=== PATIENT | male | born 1935 | race Caucasian/White ===

== ENCOUNTER 2016-11-16 15:44 | Inpatient (IN) | payer MEDICARE, BC ==
[~2016-11-16] VITALS: Ht 180.3 cm; Wt 97.4 kg
[2016-11-16 15:49] VITALS: BP 102/71; PULSE 82; RESP 16; TEMP 98.7
[2016-11-16] MEDS ORDERED: ATEN25TA PO (16:02)
[2016-11-16] MEDS ORDERED: ATOR40TA16 PO (16:02)
[2016-11-16] MEDS ORDERED: TAMS0.4C4 PO (16:02)
[2016-11-16] MEDS ORDERED: AMLO5TAB2 PO (16:02)
[2016-11-16] MEDS ORDERED: LISI10TA3 PO (16:02)
[2016-11-16] MEDS ORDERED: ASPI1TAB69 PO (16:03)
[2016-11-16] MEDS ORDERED: SODIUM CHLOR 0.9% 1000 ML INJ 1,000 ML IV SCH (16:12)
[2016-11-16] MEDS: SODIUM CHLORIDE 0.9% FLUSH 5 ML FLUSH IVF PRN ×2 (16:29→20:18)
[2016-11-16 16:31] VITALS: O2SAT 97
[2016-11-16 16:46] LABS: CHLORIDE 99 MEQ/L (98-107); POTASSIUM 4.4 MEQ/L (3.5-5.1); SODIUM (NA) 136 MEQ/L (136-145)
[2016-11-16 16:50] LABS: APTT (PATIENT) 27.1 SEC (24.3-30.1); INTERNATIONAL NORMALIZED RATIO 1.1 RATIO; PROTHROMBIN TIME - PATIENT 11.8 SEC (9.8-11.6)
[2016-11-16 16:51] LABS: ANION GAP 11 MEQ/L (5-15); BICARBONATE 26.1 MEQ/L (21.0-32.0); BLOOD UREA NITROGEN 27 MG/DL (7-18)
[2016-11-16 16:52] LABS: GLOMERULAR FILTRATION RATE 49 ML/MIN (>89)
[2016-11-16 16:54] LABS: ALT (GPT) 245 U/L (12-78); AST (GOT) 216 U/L (15-37)
--- NOTE | 2016-11-16 16:54 | PD ---
HPI Chief Complaint: GI Complaint Time Seen by Provider: 16:05 Travel History International Travel<30 days: Yes Contact w/Intl Traveler<30days: Yes Name of Country Traveled to: [facility] Traveled to known affect area: No History of Present Illness HPI This is an 81-year-old male who presents the emergency department with a 2 day history of dark tarry stools. Patient is also developed some generalized fatigue and weakness. Denies any abdominal pain. States he's had some mild weight loss over the past 23 days with his dark stooling but denies any chronic weight loss. Never had these symptoms before. No prior colonoscopy history no fevers no nausea no vomiting. Patient states every bowel movement now is dark stool. PFSH Past Medical History High Cholesterol: Yes Diminished Hearing: No Genitourinary: Yes (PROSTATE) Hypertension: Yes Influenza Vaccination: Yes ?: Not Past Surgical History Coronary Artery Bypass Graft: Yes Social History Alcohol Use: Yes Tobacco Use: No Allergies-Medications (Allergen,Severity, Reaction): Coded Allergies: No Known Allergies (Verified , 11/16/16) Reported Meds & Prescriptions Reported Meds & Active Scripts Active Reported Aspirin 81 Mg Tabdr 81 Mg PO HS Atorvastatin (Atorvastatin Calcium) 40 Mg Tab 40 Mg PO HS Lisinopril 10 Mg Tab 10 Mg PO HS Amlodipine (Amlodipine Besylate) 5 Mg Tab 5 Mg PO HS Atenolol 25 Mg Tab 25 Mg PO HS Tamsulosin (Tamsulosin HCl) 0.4 Mg Cap 0.4 Mg PO HS Review of Systems Except as stated in HPI: all other systems reviewed are Neg Physical Exam Narrative GENERAL: Well-developed well-nourished no apparent distress SKIN: Warm and dry. HEAD: Atraumatic. Normocephalic. EYES: Pupils equal and round. No scleral icterus. No injection or drainage. ENT: No nasal bleeding or discharge. Mucous membranes pink and moist. NECK: Trachea midline. No JVD. CARDIOVASCULAR: Regular rate and rhythm. No murmur appreciated. RESPIRATORY: No accessory muscle use. Clear to auscultation. Breath sounds equal bilaterally. GASTROINTESTINAL: Abdomen soft, non-tender, nondistended. Hepatic and splenic margins not palpable. Valencia sign negative. RECTAL EXAM: Patient has gross dark melanotic stools which are Hemoccult positive. No stool impaction, no mass, no hemorrhoids. MUSCULOSKELETAL: No obvious deformities. No clubbing. No cyanosis. No edema. NEUROLOGICAL: Awake and alert. No obvious cranial nerve deficits. Motor grossly within normal limits. Normal speech. PSYCHIATRIC: Appropriate mood and affect; insight and judgment normal. Data Data Last Documented VS Vital Signs Date Time Temp Pulse Resp B/P Pulse Ox O2 Delivery O2 Flow Rate FiO2 11/16/16 19:46 67 16 114/56 95 Room Air 11/16/16 15:49 98.7 Orders Complete Blood Count With Diff (11/16/16 16:12) Comprehensive Metabolic Panel (11/16/16 16:12) Lipase (11/16/16 16:12) Prothrombin Time / Inr (Pt) (11/16/16 16:12) Act Partial Throm Time (Ptt) (11/16/16 16:12) Urinalysis - C+S If Indicated (11/16/16 16:12) Ct Abd/Pel W Iv Contrast(Rout) (11/16/16 16:12) Iv Access Insert/Monitor (11/16/16 16:12) Ecg Monitoring (11/16/16 16:12) Oximetry (11/16/16 16:12) Sodium Chlor 0.9% 1000 Ml Inj (Ns 1000 M (11/16/16 16:12) Sodium Chloride 0.9% Flush (Ns Flush) (11/16/16 16:15) Type And Screen (11/16/16 16:12) Iohexol 350 Inj (Omnipaque 350 Inj) (11/16/16 18:20) Blood Culture (11/16/16 18:25) Vancomycin Inj (Vancomycin Inj) (11/16/16 21:00) Ampicillin-Sulbactam Inj (Unasyn Inj) (11/16/16 20:00) Consult General Surgery (11/16/16 ) Consult Gastroenterology (11/16/16 ) Biliary Drainage W Stent Plcmt (11/16/16 ) Admit Order (Ed Use Only) (11/16/16 ) Pantoprazole Inj (Protonix Inj) (11/16/16 20:15) Labs Laboratory Tests Test 11/16/16 11/16/16 16:27 18:45 White Blood Count 14.3 TH/MM3 Red Blood Count 3.71 MIL/MM3 Hemoglobin 11.4 GM/DL Hematocrit 33.2 % Mean Corpuscular Volume 89.4 FL Mean Corpuscular Hemoglobin 30.6 PG Mean Corpuscular Hemoglobin 34.3 % Concent Red Cell Distribution Width 12.5 % Platelet Count 336 TH/MM3 Mean Platelet Volume 7.8 FL Neutrophils (%) (Auto) 84.8 % Lymphocytes (%) (Auto) 4.6 % Monocytes (%) (Auto) 9.7 % Eosinophils (%) (Auto) 0.1 % Basophils (%) (Auto) 0.8 % Neutrophils # (Auto) 12.1 TH/MM3 Lymphocytes # (Auto) 0.7 TH/MM3 Monocytes # (Auto) 1.4 TH/MM3 Eosinophils # (Auto) 0.0 TH/MM3 Basophils # (Auto) 0.1 TH/MM3 CBC Comment DIFF FINAL Differential Comment Prothrombin Time 11.8 SEC Prothromb Time International 1.1 RATIO Ratio Activated Partial 27.1 SEC Thromboplast Time Sodium Level 136 MEQ/L Potassium Level 4.4 MEQ/L Chloride Level 99 MEQ/L Carbon Dioxide Level 26.1 MEQ/L Anion Gap 11 MEQ/L Blood Urea Nitrogen 27 MG/DL Creatinine 1.40 MG/DL Estimat Glomerular Filtration 49 ML/MIN Rate Random Glucose 132 MG/DL Calcium Level 8.7 MG/DL Total Bilirubin 0.8 MG/DL Aspartate Amino Transf 216 U/L (AST/SGOT) Alanine Aminotransferase 245 U/L (ALT/SGPT) Alkaline Phosphatase 112 U/L Total Protein 7.6 GM/DL Albumin 2.6 GM/DL Lipase 236 U/L Blood Type AB POSITIVE Antibody Screen NEGATIVE Blood Bank Comment Urine Color YELLOW Urine Turbidity CLEAR Urine pH 5.5 Urine Specific [place] 1.035 Urine Protein TRACE mg/dL Urine Glucose (UA) NEG mg/dL Urine Ketones NEG mg/dL Urine Occult Blood NEG Urine Nitrite NEG Urine Bilirubin NEG Urine Leukocyte Esterase NEG Urine RBC 0-3 /hpf Urine WBC 0-2 /hpf Urine Squamous Epithelial 0-5 /hpf Cells Microscopic Urinalysis Comment CULT NOT INDICATED MDM Medical Decision Making Medical Screen Exam Complete: Yes Emergency Medical Condition: Yes Differential Diagnosis GI bleed, ulcer, esophageal varices less likely, tumor, cholecystitis, electrolyte abnormality, anemia, coagulopathy. Narrative Course Patient was roomed in the emergency department, 81-year-old male who appears younger than stated age nontoxic appearance and not in any pain. Abdomen exam is benign. Does have gross melena on rectal exam. CAT scan was ordered as part of a complete workup for 81-year-old with GI bleeding and shows Last 24 hours Impressions Abdomen/Pelvis CT 11/16/16 1612 Signed Impressions: Service Date/Time: Wednesday, November 16, 2016 17:49 - CONCLUSION: Acute emphysematous cholecystitis. Several small abscesses in the adjacent liver. Garfield Suh MD Patient was started on vancomycin and Unasyn, lactic acid was ordered. White blood cell count minimally elevated to 14. Patient was discussed with Dr. Fabio Pepper second baker for general surgery who states that patient is not a good surgical candidate at this time given his GI bleeding and I tend to agree. After conversation with Dr. Pepper recommendation was given for an IR consult for consideration of drainage of his gallbladder. This consult is been placed for the morning. I do not think there is an emergent reason to drain his gallbladder at this time. Patient was also discussed with Dr. Mcdermott who agrees the patient should be transferred to the [facility] hospital for both surgical consultation and consultation with him. Patient was given Protonix IV. His vital signs remained stable in the emergency department. Patient has type and screen was also sent. Patient labs reviewed and shows a white blood cell count of 14.3 with a left shift, this is his only surgical criteria and therefore not septic. Hemoglobin 11.4 hematocrit 33.2. Coags within normal limits. Chemistry shows a creatinine 1.4 with a BUNs of 27, AST and LT are 216 at 245 respectively. Bilirubin and alkaline phosphatase within normal limits. Discuss results with the patient and his and they're agreeable to transfer. Discussed with Dr. Clancy who will admit. Patient is stable for transportation to the [facility] hospital. Critical Care Narrative Aggregate critical care time was 35 minutes. Time to perform other separately billable procedures was not included in the critical care time. My time did not include minutes spent treating any other patients simultaneously or on activities that did not directly contribute to the patient's treatment. The services I provided to this patient were to treat and/or prevent clinically significant deterioration that could result in: , permanent or temporary disability, organ failure. I provided critical care services requiring my management, as noted below: Chart data review, documentation time, medication orders and management, vital sign assessments/reviewing monitor data, ordering and reviewing lab tests, ordering and interpreting/reviewing x-rays and diagnostic studies, care of the patient and discussion of the patient with the admitting physicians. Diagnosis Primary Impression: GI bleeding Qualified Code: K92.2 - Gastrointestinal hemorrhage, unspecified gastrointestinal hemorrhage type Additional Impressions: Acute emphysematous cholecystitis Anemia Admitting Information Admitting Physician Requests: Admit Condition: Stable Torres Nieves MD Nov 16, 2016 16:54 Torres Nieves MD Nov 16, 2016 16:54
[2016-11-16 16:56] LABS: TOTAL BILIRUBIN ADULT 0.8 MG/DL (0.2-1.0)
[2016-11-16 16:57] LABS: ALKALINE PHOSPHATASE 112 U/L (45-117)
[2016-11-16 16:58] LABS: AUTOMATED NEUTROPHIL # 12.1 TH/MM3 (1.8-7.7); BASOPHIL # 0.1 TH/MM3 (0-0.2); BASOPHIL % 0.8 % (0.0-2.0); EOSINOPHIL % 0.1 % (0.0-4.0); HEMATOCRIT 33.2 % (39.0-51.0); LYMPH % 4.6 % (9.0-44.0); LYMPHOCYTE # 0.7 TH/MM3 (1.0-4.8); MEAN CELL VOLUME 89.4 FL (80.0-100.0); MEAN CORPUSCULAR HEMOGLOBIN 30.6 PG (27.0-34.0); MEAN CORPUSCULAR HGB CONC 34.3 % (32.0-36.0); MONO % 9.7 % (0.0-8.0); NEUT % 84.8 % (16.0-70.0); PLATELET COUNT 336 TH/MM3 (150-450); RED BLOOD COUNT 3.71 MIL/MM3 (4.50-5.90); RED CELL DISTRIBUTION WIDTH 12.5 % (11.6-17.2); WHITE BLOOD COUNT 14.3 TH/MM3 (4.0-11.0)
[2016-11-16 16:59] LABS: HEMO FLAGS DIFF FINAL
--- NOTE | 2016-11-16 18:19 | RADHPO ---
EXAM DATE/TIME: 11/16/2016 17:49 [facility] COMPARISON: No previous studies available for comparison. INDICATIONS : Black stoo. Lower abdominal pressure. Diarrhea. Nausea. IV CONTRAST: 75 cc Omnipaque 350 (iohexol) IV ORAL CONTRAST: No oral contrast ingested. RADIATION DOSE: 18.25 CTDIvol (mGy) MEDICAL HISTORY : Hypertension. SURGICAL HISTORY : CABG ENCOUNTER: Initial ACUITY: 4 - 6 days PAIN SCALE: 1/10 LOCATION: Bilateral lower quadrant TECHNIQUE: Volumetric scanning of the abdomen and pelvis was performed. Using automated exposure control and ad justment of the mA and/or kV according to patient size, radiation dose was kept as low as reasonably achievable to obtain optimal diagnostic quality images. FINDINGS: Distended gallbladder with irregular wall thickening, mucosal enhancement, septations and gas within the lumen noted. There are small pockets of fluid and gas in the liver along the superior margin of t he gallbladder fossa that measure up to 18 mm in size, series 2 image 17 and series 601 image 44. The rest of the liver is normal. No ductal dilatation. No perceptible stones. Spleen, pancreas, adrenal glands and kidneys are normal. No obstruction or acute inflammatory ch anges are seen of the gastrointestinal tract. There is tortuosity and atherosclerosis of the abdomina l aorta. No aneurysm. CONCLUSION: Acute emphysematous cholecystitis. Several small abscesses in the adjacent liver. Garfield Suh MD on November 16, 2016 at 18:13 Board Certified Radiologist. This report was verified electronically.
[2016-11-16] MEDS ORDERED: IOHEXOL 350 MG/ML 10 ML VIAL (for RAD DIAG) IV ONE (18:20)
[2016-11-16 19:16] LABS: BLOOD, URINE NEG (NEG); GLUCOSE,URINE NEG (NEG); KETONE, URINE NEG (NEG); NITRITE,URINE NEG (NEG); PH, URINE 5.5 (5.0-8.5)
[2016-11-16 19:18] LABS: URINE COLOR YELLOW (YELLW/STRAW)
[2016-11-16 19:22] LABS: COMMENT (UR) CULT NOT INDICATED; CULTURE IF INDICATED CULT NOT INDICATED; RBC, URINE 0-3 /hpf (0-3); SQUAMOUS EPITHELIAL CELL URINE 0-5 /hpf (0-5); WBC, URINE 0-2 /hpf (0-5)
[2016-11-16 19:46] VITALS: BP 114/56; PULSE 67; RESP 16; O2SAT 95
[2016-11-16] MEDS ORDERED: AMPICILLIN-SULBACTAM INJ 3 GM in SODIUM CHLORIDE 0.9% INJ 100 ML IV ONE (20:00)
[2016-11-16] MEDS ORDERED: SODIUM CHLORIDE 0.9% FLUSH 5 ML FLUSH FLUSH PRN (20:15)
[2016-11-16] MEDS ORDERED: Vancomycin Consult Pharmacy 1 EA OTHER SCH (20:15)
[2016-11-16] MEDS ORDERED: PANTOPRAZOLE SODIUM 40 MG VIAL IV PUSH ONE (20:15)
[2016-11-16] MEDS ORDERED: NALOXONE HCL 0.4 MG/ML AMP IV PRN (20:15)
[2016-11-16] MEDS ORDERED: ONDANSETRON HCL 4 MG/2 ML VIAL IVP PRN (20:15)
[2016-11-16] MEDS ORDERED: VANCOMYCIN INJ 1,000 MG in SODIUM CHLOR 0.9% 250 ML INJ 250 ML IV ONE (21:00)
[2016-11-16] MEDS ORDERED: PANTOPRAZOLE INJ 80 MG in SODIUM CHLORIDE 0.9% INJ 35 ML IV ONE (21:15)
[2016-11-16 22:00] VITALS: BP 115/57; PULSE 67; PULSE 69; RESP 16; TEMP 99.3; O2SAT 97
[2016-11-16] MEDS: PANTOPRAZOLE INJ 80 MG in SODIUM CHLORIDE 0.9% INJ 100 ML IV SCH (22:43)
[2016-11-16] MEDS: SODIUM CHLORIDE 0.9% FLUSH 5 ML FLUSH FLUSH SCH (22:44)
--- NOTE | 2016-11-16 23:21 | HHI.HP ---
HPI Service [facility] Primary Care Physician No Primary Care Physician Admission Diagnosis GI bleed, Acute Emphysematous Cholecystitis. Diagnoses: (1) GI bleeding (2) Anemia (3) Acute emphysematous cholecystitis Chief Complaint: poor appetite and dark, tarry stools Travel History International Travel<30 Days: Yes Contact w/Intl Traveler <30 Da: Yes Name of Country Traveled to: [facility] Traveled to Known Affected Are: No History of Present Illness Mr. Rico is an 81-year-old male with past medical history of coronary artery disease status post CABG, hyperlipidemia, hypertension, and prostate hypertrophy who presented to the [facility] emergency room on 11/16/2016 complaining of dark, tarry stool. Abdomen/pelvis CT with acute emphysematous cholecystitis and several small abscesses in the adjacent liver. He was transferred to the [facility] for intervention at the request of the consulting surgeon, Dr. Friedman. The patient is seen in his hospital room with his at his bedside. The patient states that he has been having a very poor appetite with associated weight loss. He has been having dark stools over the past few weeks but over the past couple of days every stool is now black and tarry. He reports having one bowel movement daily. He complains of associated abdominal bloating ( though examination of abdomen is normal). He denies associated burning or pain with urination or hematuria. His reports a possible tactile fever over the past couple of days. Denies chest pain, shortness of breath, dizziness, or syncope. Denies abdominal pain. Denies diabetes mellitus, respiratory problems, liver or kidney dysfunction, thyroid problems, seizures, cancer, or problems with blood clots such as DVT, PE , or CVA. . Review of Systems Except as stated in HPI: all other systems reviewed are Neg Past Family Social History Past Medical History Coronary artery disease status post CABG Hyperlipidemia Hypertension Prostate hypertrophy Past Surgical History CABG x4 in 1995 in [place], [place] Benign cyst removed from left breast Reported Medications Reported Meds & Active Scripts Active Reported Aspirin 81 Mg Tabdr 81 Mg PO HS Atorvastatin (Atorvastatin Calcium) 40 Mg Tab 40 Mg PO HS Lisinopril 10 Mg Tab 10 Mg PO HS Amlodipine (Amlodipine Besylate) 5 Mg Tab 5 Mg PO HS Atenolol 25 Mg Tab 25 Mg PO HS Tamsulosin (Tamsulosin HCl) 0.4 Mg Cap 0.4 Mg PO HS . Allergies: Coded Allergies: No Known Allergies (Verified , 11/16/16) Active Ordered Medications Current Medications Sodium Chloride (NS 1000 ml Inj) 1,000 ml @ 1,000 mls/hr Q1H IV Last administered on 11/16/16 16:29; Start 11/16/16 at 16:12; Stop 11/16/16 at 17:11 ; Status DC IV Flush (NS Flush) 2 ml UNSCH PRN IVF FLUSH AFTER USING IV ACCESS Last administered on 11/16/16 20:18; Start 11/16/16 at 16:15 Iohexol 75 ml 75 ml STK-MED ONCE IV Last administered on 11/16/16 18:20; Start 11/16/16 at 18:20; Stop 11/16/16 at 18:21; Status DC Vancomycin HCl 1000 mg/Sodium Chloride 250 ml @ 250 mls/hr ONCE ONCE IV Last administered on 11/16/16 20:20; Start 11/16/16 at 21:00; Stop 11/16/16 at 21:59 ; Status DC Ampicillin Sodium/ Sulbactam Sodium/ Sodium Chloride (Unasyn Inj/NS Inj) 100 ml @ 200 mls/hr ONCE ONCE IV Last administered on 11/16/16 19:43; Start at 20:00; Stop 11/16/16 at 20:29; Status DC Pantoprazole Sodium (Protonix Inj) 40 mg ONCE ONCE IV PUSH Last administered on 11/16/16 20:18; Start 11/16/16 at 20:15; Stop 11/16/16 at 20:16; Status DC IV Flush (NS Flush) 2 ml UNSCH PRN FLUSH FLUSH AFTER USING IV ACCESS; Start at 20:15 IV Flush (NS Flush) 2 ml BID FLUSH Last administered on 11/16/16 22:44; Start 11/16/16 at 21:00 Ondansetron HCl (Zofran Inj) 4 mg Q6H PRN IVP NAUSEA OR VOMITING; Start at 20:15 Naloxone HCl 0.4 mg 0.4 mg UNSCH PRN IV SEE LABEL COMMENTS; Start 11/16/16 at 20:15 Pharmacy Profile Note 0 ml @ 0 mls/hr UNSCH OTHER ; Start 11/16/16 at 20:15 Piperacillin Sod/ Tazobactam Sod 100 ml @ 200 mls/hr Q6H IV ; Start 11/17/16 at 00:00 Pantoprazole Sodium 80 mg/ Sodium Chloride 35 ml @ 420 mls/hr ONCE ONCE IV ; Start 11/16/16 at 21:15; Stop 11/16/16 at 21:19; Status Cancel Pantoprazole Sodium 80 mg/ Sodium Chloride 100 ml @ 10 mls/hr Q10H IV Last administered on 11/16/16t 22:43; Start 11/16/16 at 21:15 Vancomycin HCl/ Sodium Chloride (Vancomycin Inj/ NS 500 ml Inj) 517 ml @ 250 mls/hr DAILY@11 IV ; Start 11/17/16 at 11:00 Miscellaneous Information SPECIFIC LAB TO BE DRAWN:VANCO TROUGH DATE TO... ONCE ONCE XX ; Start 11/20/16 at 10:45; Stop 11/20/16 at 10:46 . Family History Mother age 94; dementia, heart disease Father age 82; cause unknown Brother with heart failure; age 86 . Social History Tobacco: Denies, quit smoking in 1980 that had a 22 year 1 pack per day history prior to that Alcohol: Drinks 1-2 glasses of wine daily Patient was born in [place] . Physical Exam Vital Signs Vital Signs Date Time Temp Pulse Resp B/P Pulse Ox O2 Delivery O2 Flow Rate FiO2 11/16/16 22:00 99.3 69 16 115/57 97 11/16/16 19:46 67 16 114/56 95 Room Air 11/16/16 16:31 97 Room Air 11/16/16 15:49 98.7 82 16 102/71 Physical Exam GENERAL: This is a pleasant elderly male patient, in no apparent distress. SKIN: No rashes, ecchymoses or lesions. Cool and dry. HEAD: Atraumatic. Normocephalic. EYES: No scleral icterus. No injection or drainage. ENT: Nose without bleeding, purulent drainage. NECK: Trachea midline. No JVD or lymphadenopathy. CARDIOVASCULAR: Regular rate and rhythm without murmurs, gallops, or rubs. RESPIRATORY: Clear to auscultation. Breath sounds equal bilaterally. No wheezes , rales, or rhonchi. GASTROINTESTINAL: Abdomen soft, non-tender, nondistended. No guarding. MUSCULOSKELETAL: Extremities without clubbing, cyanosis, or edema. No calf tenderness. NEUROLOGICAL: Awake and alert. Motor and sensory grossly within normal limits. Normal speech. . Laboratory Laboratory Tests Test 11/16/16 11/16/16 11/16/16 16:27 18:45 21:25 White Blood Count 14.3 Red Blood Count 3.71 Hemoglobin 11.4 Hematocrit 33.2 Mean Corpuscular Volume 89.4 Mean Corpuscular Hemoglobin 30.6 Mean Corpuscular Hemoglobin 34.3 Concent Red Cell Distribution Width 12.5 Platelet Count 336 Mean Platelet Volume 7.8 Neutrophils (%) (Auto) 84.8 Lymphocytes (%) (Auto) 4.6 Monocytes (%) (Auto) 9.7 Eosinophils (%) (Auto) 0.1 Basophils (%) (Auto) 0.8 Neutrophils # (Auto) 12.1 Lymphocytes # (Auto) 0.7 Monocytes # (Auto) 1.4 Eosinophils # (Auto) 0.0 Basophils # (Auto) 0.1 CBC Comment DIFF FINAL Differential Comment Prothrombin Time 11.8 Prothromb Time International 1.1 Ratio Activated Partial 27.1 Thromboplast Time Sodium Level 136 Potassium Level 4.4 Chloride Level 99 Carbon Dioxide Level 26.1 Anion Gap 11 Blood Urea Nitrogen 27 Creatinine 1.40 Estimat Glomerular Filtration 49 Rate Random Glucose 132 Calcium Level 8.7 Total Bilirubin 0.8 Aspartate Amino Transf 216 (AST/SGOT) Alanine Aminotransferase 245 (ALT/SGPT) Alkaline Phosphatase 112 Total Protein 7.6 Albumin 2.6 Lipase 236 Blood Type AB POSITIVE Antibody Screen NEGATIVE Blood Bank Comment Urine Color YELLOW Urine Turbidity CLEAR Urine pH 5.5 Urine Specific [place] 1.035 Urine Protein TRACE Urine Glucose (UA) NEG Urine Ketones NEG Urine Occult Blood NEG Urine Nitrite NEG Urine Bilirubin NEG Urine Leukocyte Esterase NEG Urine RBC 0-3 Urine WBC 0-2 Urine Squamous Epithelial 0-5 Cells Microscopic Urinalysis Comment CULT NOT INDICATED Lactic Acid Level 1.3 Date/Time Procedure Status Source Growth 11/16/16 19:12 Aerobic Blood Culture Received Blood Peripheral Pending 11/16/16 19:12 Anaerobic Blood Culture Received Blood Peripheral Pending Result Diagram: 11/16/16 1627 11/16/16 1627 Imaging Last Impressions Abdomen/Pelvis CT 11/16/16 1612 Signed Impressions: Service Date/Time: Wednesday, November 16, 2016 17:49 - CONCLUSION: Acute emphysematous cholecystitis. Several small abscesses in the adjacent liver. Garfield Suh MD Assessment and Plan Problem List: (1) GI bleeding ICD Code: K92.2 Status: Acute (2) Acute emphysematous cholecystitis ICD Code: K81.0 Status: Acute (3) Leukocytosis ICD Code: D72.829 Status: Acute (4) Anemia ICD Code: D64.9 Status: Acute (5) Acute renal insufficiency ICD Code: N28.9 Status: Acute Assessment and Plan Mr. Rico is an 81-year-old male with past medical history of coronary artery disease status post CABG, hyperlipidemia, hypertension, and prostate hypertrophy who presented to the [facility] emergency room on 11/16/2016 complaining of dark, tarry stool. Abdomen/pelvis CT with acute emphysematous cholecystitis and several small abscesses in the adjacent liver. He was transferred to the [facility] for intervention at the request of heel sander rubber, Dr. Friedman. GI bleeding gross melena noted during rectal examination per ER physician - Consult gastroenterology - Nothing by mouth - Protonix drip Acute emphysematous cholecystitis with transaminitis - Consult general surgery - consider consulting interventional radiology for gallbladder drainage Leukocytosis with neutrophilia and monocytosis Liver abscesses - Likely secondary to cholecystitis and liver abscesses - Zosyn 4.5 mg IV every 6 hours - Vancomycin IV with pharmacy consult to assist with therapeutic monitoring and dosing - Recheck CBC in a.m.; follow trends - Lactic acid level I.3 - Blood cultures pending; UA negative Anemia - likely related to GI blood loss - Hemoglobin 11.4 and hematocrit 33.2 with no recent labs to compare to - Recheck CBC in a.m. - Follow trends - Transfuse if indicated - Continuous cardiac telemetry Acute renal insufficiency likely secondary to dehydration - BUN elevated at 27, creatinine 1.40, and estimated GFR 49 - Recheck BMP in a.m. and follow trends in renal indices - Avoid nephrotoxins DVT prophylaxis - SCDs Written by Astrid Eddy, acting as scribe for Dr. Atkins on 11/16/16 at 23:10. .All or portions of this note were transcribed by tahir [Astrid Eddy]. I, Dr. Gigi Atkins personally performed the history, physical exam, and medical decision making; and confirmed the accuracy of the information in the transcribed note. Authenticated by Dr. Gigi Atkins on 11/16/16 at 2310 Discussed Condition With ER physician, RN, patient, and his Physician Certification 2 Midnight Certification Type: Admission for Inpatient Services Order for Inpatient Services The services are ordered in accordance with Medicare regulations or non- Medicare payer requirements, as applicable. In the case of services not specified as inpatient-only, they are appropriately provided as inpatient services in accordance with the 2-midnight benchmark. Estimated LOS (days): 3 days is the estimated time the patient will need to remain in the hospital, assuming treatment plan goals are met and no additional complications. Post-Hospital Plan: Not yet determined Problem Qualifiers (1) GI bleeding: Qualified Code: K92.2 - Gastrointestinal hemorrhage, unspecified gastrointestinal hemorrhage type (2) Anemia: Qualified Code: D64.9 - Anemia, unspecified type Astrid Eddy Nov 16, 2016 23:21 Gigi Atkins MD Dec 01, 2016 08:33
[2016-11-17] VITALS (11 sets, daily range): BP systolic 102–139; BP diastolic 56–72; PULSE 66–91; RESP 16–20; TEMP 97.6–98.7; O2SAT 92–97
[2016-11-17] MEDS: PIPERACIL-TAZO 4.5 GM PREMIX 100 ML IV SCH ×4 (00:23→17:08)
[2016-11-17] MEDS: PANTOPRAZOLE INJ 80 MG in SODIUM CHLORIDE 0.9% INJ 100 ML IV SCH ×3 (07:15→20:38)
[2016-11-17 07:32] LABS: AUTOMATED NEUTROPHIL # 8.6 TH/MM3 (1.8-7.7); BASOPHIL % 0.3 % (0.0-2.0); HEMATOCRIT 27.3 % (39.0-51.0); HEMO FLAGS DIFF FINAL; LYMPH % 6.2 % (9.0-44.0); LYMPHOCYTE # 0.6 TH/MM3 (1.0-4.8); MEAN CELL VOLUME 88.4 FL (80.0-100.0); MEAN CORPUSCULAR HEMOGLOBIN 30.4 PG (27.0-34.0); MEAN CORPUSCULAR HGB CONC 34.4 % (32.0-36.0); MONO % 11.9 % (0.0-8.0); NEUT % 81.6 % (16.0-70.0); PLATELET COUNT 263 TH/MM3 (150-450); RED BLOOD COUNT 3.08 MIL/MM3 (4.50-5.90); RED CELL DISTRIBUTION WIDTH 13.2 % (11.6-17.2); WHITE BLOOD COUNT 10.5 TH/MM3 (4.0-11.0)
[2016-11-17 08:15] LABS: ALT (GPT) 185 U/L (12-78); ANION GAP 10 MEQ/L (5-15); AST (GOT) 144 U/L (15-37); BICARBONATE 22.8 MEQ/L (21.0-32.0); BLOOD UREA NITROGEN 16 MG/DL (7-18); CHLORIDE 106 MEQ/L (98-107); GLOMERULAR FILTRATION RATE 67 ML/MIN (>89); SODIUM (NA) 139 MEQ/L (136-145)
[2016-11-17 08:17] LABS: ALKALINE PHOSPHATASE 96 U/L (45-117); TOTAL BILIRUBIN ADULT 0.7 MG/DL (0.2-1.0)
--- NOTE | 2016-11-17 10:11 | HHI.PR ---
Subjective Remarks Patient in nad. Denies cp, sob. Says pain is controlled by meds. No n/v/d/c. Had a black colored stool in the morning. No gabrielle blood. Awaiting surgical eval. NPO Objective Vitals Vital Signs Date Time Temp Pulse Resp B/P Pulse Ox O2 Delivery O2 Flow Rate FiO2 11/17/16 08:00 98.4 81 20 102/61 94 11/17/16 05:15 98.1 81 16 130/60 93 11/16/16 22:00 99.3 69 16 115/57 97 11/16/16 22:00 67 11/16/16 19:46 67 16 114/56 95 Room Air 11/16/16 16:31 97 Room Air 11/16/16 15:49 98.7 82 16 102/71 I/O 11/16/16 11/16/16 11/16/16 11/17/16 11/17/16 11/17/16 07:00 15:00 23:00 07:00 15:00 23:00 Intake Total 1100 ml 0 ml Output Total 300 ml 150 ml Balance 800 ml -150 ml Intake Oral 0 ml IV Total 1100 ml Output Urine Total 300 ml 150 ml Stool Total 0 ml # Voids 2 Result Diagram: 11/17/16 0646 11/17/16 0646 Imaging Last Impressions Abdomen/Pelvis CT 11/16/16 1612 Signed Impressions: Service Date/Time: Wednesday, November 16, 2016 17:49 - CONCLUSION: Acute emphysematous cholecystitis. Several small abscesses in the adjacent liver. Garfield Suh MD Objective Remarks GENERAL: This is a pleasant elderly male patient, in no apparent distress. SKIN: No rashes, ecchymoses or lesions. Cool and dry. HEAD: Atraumatic. Normocephalic. EYES: No scleral icterus. No injection or drainage. ENT: Nose without bleeding, purulent drainage. NECK: Trachea midline. No JVD or lymphadenopathy. CARDIOVASCULAR: Regular rate and rhythm without murmurs, gallops, or rubs. RESPIRATORY: Clear to auscultation. Breath sounds equal bilaterally. No wheezes , rales, or rhonchi. GASTROINTESTINAL: Abdomen soft, non-tender, nondistended. No guarding. MUSCULOSKELETAL: Extremities without clubbing, cyanosis, or edema. No calf tenderness. NEUROLOGICAL: Awake and alert. Motor and sensory grossly within normal limits. Normal speech. A/P Problem List: (1) GI bleeding ICD Code: K92.2 Status: Acute (2) Acute emphysematous cholecystitis ICD Code: K81.0 Status: Acute (3) Leukocytosis ICD Code: D72.829 Status: Acute (4) Anemia ICD Code: D64.9 Status: Acute (5) Acute renal insufficiency ICD Code: N28.9 Status: Acute Assessment and Plan Mr. Rico is an 81-year-old male with past medical history of coronary artery disease status post CABG, hyperlipidemia, hypertension, and prostate hypertrophy who presented to the [place] emergency room on 11/16/2016 complaining of dark, tarry stool. Abdomen/pelvis CT with acute emphysematous cholecystitis and several small abscesses in the adjacent liver. He was transferred to the [facility] hospital for intervention at the request of hand slitter, Dr. Friedman. GI bleeding gross melena noted during rectal examination per ER physician on admission - Consult gastroenterology - Nothing by mouth - Protonix drip Acute emphysematous cholecystitis with transaminitis - Consult general surgery, appreciate recommendations - consider consulting interventional radiology for gallbladder drainage Leukocytosis with neutrophilia and monocytosis Liver abscesses - Likely secondary to cholecystitis and liver abscesses - Zosyn 4.5 mg IV every 6 hours - Vancomycin IV with pharmacy consult to assist with therapeutic monitoring and dosing - Recheck CBC in a.m.; follow trends - Lactic acid level I.3 - Blood cultures pending; UA negative Anemia - likely related to GI blood loss - Hemoglobin 11.4 and hematocrit 33.2 on admission, with no recent labs to compare to - Recheck CBC in a.m. - Follow trends - Transfuse if indicated - Continuous cardiac telemetry Acute renal insufficiency likely secondary to dehydration - BUN elevated at 27, creatinine 1.40, and estimated GFR 49 on admission - Recheck BMP in a.m. and follow trends in renal indices - Avoid nephrotoxins DVT prophylaxis - SCDs Discussed Condition With patient, nurse and his at bedside Problem Qualifiers (1) GI bleeding: Qualified Code: K92.2 - Gastrointestinal hemorrhage, unspecified gastrointestinal hemorrhage type (2) Anemia: Qualified Code: D64.9 - Anemia, unspecified type Hina Hernandez MD Nov 17, 2016 10:11
--- NOTE | 2016-11-17 10:18 | MB ---
cc: ELIAZAR WILDE M.D., HARRY M.D. DATE OF CONSULTATION: 11/17/2016 DATE OF : 1935 HISTORY OF PRESENT ILLNESS The patient is an 81-year-old white male I was asked to see for further evaluation and management of melena. He was admitted last night to the hospital with melena for three days and he had melanotic stools again today. He is a little unsteady on his feet but no lightheadedness or dizziness. No pain. Some nausea. Some reflux intermittently for years. He takes Zantac intermittently. He takes baby aspirin daily. He has had no previous evidence of GI bleeding. He has never undergone colonoscopy. PAST MEDICAL HISTORY 1. Coronary artery disease status post five-vessel bypass 20 years ago. 2. Hyperlipidemia. 3. Hypertension. 4. Prostatic hypertrophy. PAST SURGICAL HISTORY 1. The bypass procedure. 2. Benign cyst removed from the left breast. MEDICATIONS Medications on admission: 1. Baby aspirin daily. 2. Atorvastatin 40 mg daily. 3. Lisinopril 10 mg daily at bedtime. 4. Amlodipine 5 mg at bedtime. 5. Atenolol 25 mg at bedtime. 6. Tamsulosin 0.4 mg at bedtime. ALLERGIES None known to medications. SOCIAL HISTORY Tobacco use none, alcohol use rare. FAMILY HISTORY Heart disease. REVIEW OF SYSTEMS No history of seizures or strokes. No headaches. No vision difficulties. No auditory problems. No dysphagia or odynophagia. No early satiety. No bowel irregularities. No history of lung disease, liver disease, pancreatic disease or thyroid disease. He has had no rashes or joint pains. He has had no unexplained weight loss. PHYSICAL EXAMINATION VITAL SIGNS: Temperature 98.4, pulse 81, respiratory rate 20, blood pressure 102/61, saturation 94% on room air. GENERAL: He is alert. He is oriented x3. HEENT: He is anicteric. Extraocular motions are intact. LYMPH NODES: I appreciate no submandibular, cervical, supraclavicular, axillary or epitrochlear adenopathy. LUNGS: Clear to auscultation. HEART: Regular rate and rhythm. No gross murmur or gallop. ABDOMEN: Good bowel sounds with no appreciable bruit. Abdomen soft with no appreciable tenderness. No masses or hepatosplenomegaly are noted. EXTREMITIES: No pedal edema, Dupuytren's contractures or palmar erythema. LABORATORY Laboratory studies on admission yesterday white count 14.3, hemoglobin 11.4, MCV 89.4, platelets 336. Today's white count 10.5, hemoglobin 9.4, platelets 263. INR 1.1. Today's sodium 139, potassium 4.0, BUN 16, creatinine 1.04. Yesterday's BUN was 27 with creatinine of 1.4. Yesterday's liver enzymes revealed a bilirubin of 0.8, AST 216, ALT 245, alk phos 112. Today bilirubin 0.7, AST 144, ALT 185, alk phos 96. Albumin 2.2. Lipase normal. Urinalysis unremarkable. IMAGING CT scan (I reviewed this with the radiologist) reveals evidence of emphysematous cholecystitis with air in the gallbladder lumen. The gallbladder was distended and irregular with wall thickening and mucosal enhancement as well as septations and some pericholecystic fluid. The biliary tree was not dilated. Small abscesses may be present within the adjacent liver. IMPRESSION/RECOMMENDATIONS 1. Melena for four days. In the emergency room stool was tested for blood and was positive. This may be related to the baby aspirin use. We discussed other possible etiologies including vascular malformations, reflux esophagitis, neoplastic conditions. 2. He has never undergone colonoscopy. We discussed this procedure and could consider addressing this down the road. 3. Emphysematous cholecystitis with essentially no symptomatology. Antibiotics have been started. He is scheduled for percutaneous cholecystostomy today. The liver enzyme elevation is likely related to the inflammation of the gallbladder and the small abscesses adjacent to the gallbladder within the liver. After the cholecystostomy drainage today will schedule panendoscopy for tomorrow. I reviewed the procedure with the patient and his including potential risks of medication reaction, bleeding, perforation and the small chance of missing a lesion. IV Protonix has already been started. MD TRACEE Yanez/DAT /9:49 AM /10:00 AM
[2016-11-17 10:57] LABS: HEMATOCRIT 32.1 % (39.0-51.0); REVIEW FLAG FINAL
[2016-11-17] MEDS: SODIUM CHLORIDE 0.9% FLUSH 5 ML FLUSH FLUSH SCH ×2 (12:15→20:38)
[2016-11-17] MEDS: VANCOMYCIN INJ 1,700 MG in SODIUM CHLORID 0.9% 500 ML INJ 500 ML IV SCH (12:15)
--- NOTE | 2016-11-17 12:38 | MB ---
cc: NATHANAEL GAFFNEY M.D. DATE OF CONSULTATION 11/17/2016 REASON FOR CONSULTATION Emphysematous cholecystitis and GI hemorrhage. HISTORY OF PRESENT ILLNESS The patient is a very pleasant 81-year-old male who has a significant past medical history but reports having about of four-day history of melenic stools. The patient was worked up and was found on CT scan to have emphysematous cholecystitis. The patient had continued dark tarry stools and hemoglobin was 11.4. The patient is reporting a poor appetite was some weight loss and did report some dark stools over the past few weeks. The patient has never had a colonoscopy. The patient denies any right upper quadrant pain whatsoever. PAST MEDICAL HISTORY Significant for: 1. Coronary artery disease status post CABG 2. Hyperlipidemia 3. Hypertension 4. Benign prostatic hypertrophy REVIEW OF SYSTEMS Negative except as indicated above. PAST SURGICAL HISTORY Include: 1. Coronary artery bypass graft x4 in 1995 2. Benign cyst removed from the left breast in the past. MEDICATIONS ON ADMISSION Included: 1. Aspirin 81 mg p.o. q.h.s. 2. Atorvastatin 40 mg p.o. q.h.s. 3. Lisinopril 10 mg p.o. q.h.s. 4. Amlodipine 5 mg p.o. q.h.s. 5. Atenolol 25 mg q.h.s. 6. Tamsulosin 0.4 mg p.o. q.h.s. ALLERGIES The patient has no known allergies. Dr. Friedman has seen the patient this morning and is planning an EGD tomorrow after planned interventional radiology procedure today. PHYSICAL EXAM Physical exam reveals a male lying quietly in bed. VITAL SIGNS: BP 102/61, pulse 81, respirations 20, temperature 98.4, 94% saturation on room air. HEAD, EYES, EARS, NOSE, AND THROAT: Sclerae anicteric. Pupils reactive. NECK: Supple. CHEST: Clear to auscultation. CARDIAC: Exam reveals a regular rate and rhythm. ABDOMEN: Soft and nontender. Specifically there is no tenderness in the right upper quadrant or the epigastrium. There are no hernias noted. Pulses are present. NEUROLOGIC EXAMINATION: Cranial nerves II-XII grossly intact. Sensory and motor exam is grossly intact. LABORATORY VALUES Demonstrate WBCs of 10.5, hemoglobin is 10.7 this morning, was 11.4 yesterday. Platelet count is normal at 263,000. Chemistries demonstrate a BUN of 16, creatinine 1.06, potassium 4.0. Lactate is normal at 1.3. Liver function tests slightly elevated with AST and ALT elevated at 144 and 185 respectively which are decreased from yesterday. Total bilirubin is normal alkaline phosphatase is normal. Lipase was normal at 236 on admission. Coagulation demonstrates a PT of 11.8 and INR of 1.1. Imaging as noted with emphysematous cholecystitis but no other masses noted in the colon or stones in the gallbladder. ASSESSMENT GI hemorrhage of unclear etiology. Ulcer versus colonic etiology, possible. Hemobilia less likely. The patient is going to undergo percutaneous cholecystostomy tube today to temporize his cholecystitis problems. GI bleeding problem will be addressed by Dr. Friedman. Depending on those findings, we will proceed accordingly. If the patient turns out to have a colonic neoplasm, the patient would best be served by a single procedure simultaneously. I have discussed this with the patient and his and they are in agreement. We will await Dr. Friedman' procedure to make other plans accordingly. MD AGUSTÍN Stroud/EVELYNE /12:09 PM /12:19 PM
[2016-11-17] MEDS ORDERED: fentaNYL CITRATE 250 MCG/5 ML AMP ONE (13:24)
[2016-11-17] MEDS ORDERED: MIDAZOLAM HCL 5 MG/5 ML VIAL ONE (13:24)
--- NOTE | 2016-11-17 14:32 | PD.RAD ---
Post Procedure Progress Note Pre Procedure Diagnosis: (1) Acute emphysematous cholecystitis Post Procedure Diagnosis: (1) Acute emphysematous cholecystitis Procedure Date: Nov 17, 2016 Supervising Radiologist: Allan Thompson JR Proceduralist/Assist: Leonora Richardson, RT(R), Gricel Contreras RT(R)() Anesthesia: Conscious Sedation Plan of Activity Patient to Unit: ROPU Patient Condition: Good See PACS Report for procedural detail/treatment Drainage Procedure Procedure 1 Imaging Guidance: Fluoroscopy, Ultrasound Side: Right Procedure Type: Cholecystostomy Procedure: Placement Lithuanian: 8 PICC Line Length (cm): 315 Fluid Description: Purulent Findings: Drainage of GB yielded 315ml of pus. Sample to micro. Plan Drain will need to stay in place for a minimum of 3 weeks unless GB removed in the interval. Jr. Jay,Allan Valles MD Nov 17, 2016 14:32
--- NOTE | 2016-11-17 17:16 | RADRPT ---
EXAM DATE/TIME: 11/17/2016 13:41 [facility] COMPARISON: No previous studies available for comparison. INDICATIONS : Patient with acute cholecystitis in need of percutaneous cholecystostomy. MEDICAL HISTORY : HTN, CAD, HLD, Prostate hypertrophy, GI Bleed SURGICAL HISTORY : CABGX4 ENCOUNTER: Initial ACUITY: 1 day PAIN SCORE: 0/10 FLUORO TIME: 1.5 minutes SEDATION TIME: 20 minutes MEDICATION(S): 1.) 4 mg midazolam (Versed) IV 2.) 175 mcg fentanyl (Sublimaze) IV DEVICE(S): 1.) 8 Anguillan X25cm Skater catheter PROCEDURE : 1. Ultrasound guided puncture of the gallbladder. 2. Percutaneous cholangiogram. 3. Percutaneous cholecystostomy tube placement. 4. Conscious sedation with continuous EKG and oximetry monitoring. The risks, benefits and alternatives to the procedure were explained and verbal and written consent w as obtained. The site was prepped in sterile fashion. Full sterile technique was used, including ca p, mask, sterile gloves and gown and a large sterile sheet. Hand hygiene and 2% chlorhexidine and/or betadine/alcohol prep was utilized per protocol for cutaneous antisepsis. The skin and subcutaneous tissues were infiltrated with local anesthetic solution. With ultrasound and fluoroscopic guidance the gallbladder was punctured with a micropuncture set and a 4 Anguillan dilator was placed. Injection of positive was not performed due to the purulent nature of the drainage. A 0.035 guidewire was placed within the gallbladder lumen and dilatation was performe d to accept the prescribed catheter. 8 Anguillan drainage catheter was coiled within the gallbladder lumen. Aspiration yielded 315 mL of pus. A sample was sent for microbiological evaluation. The catheter was sutured in place using 2-0 silk s uture. Conscious sedation was performed with the prescribed dosages and duration as above. The patient tole rated the procedure well and there were no complications. EKG and oximetry remained stable throughou t the procedure. The patient was sent to post anesthesia recovery in stable condition. CONCLUSION: Uncomplicated percutaneous cholecystostomy as above. Pus obtained from the gallbladder lumen. A sampl e was sent to microbiology. Allan Thompson Jr., MD on November 17, 2016 at 17:13 Board Certified Radiologist. This report was verified electronically.
[2016-11-17] MEDS ORDERED: NALOXONE HCL 0.4 MG/ML AMP IV PRN (18:00)
[2016-11-17] MEDS: ACETAMINOPHEN/HYDROcodone 325 MG/5 MG TAB PO PRN (18:10)
[2016-11-18] VITALS (7 sets, daily range): BP systolic 109–142; BP diastolic 57–66; PULSE 66–89; RESP 16–18; TEMP 97.2–98.3; O2SAT 91–96
[2016-11-18] MEDS: PIPERACIL-TAZO 4.5 GM PREMIX 100 ML IV SCH ×4 (00:06→18:00)
[2016-11-18] MEDS: ACETAMINOPHEN/HYDROcodone 325 MG/10 MG TAB PO PRN (03:08)
[2016-11-18] MEDS: PANTOPRAZOLE INJ 80 MG in SODIUM CHLORIDE 0.9% INJ 100 ML IV SCH (05:59)
--- NOTE | 2016-11-18 08:46 | HHI.GIFU ---
GI Follow-up Note Consult Follow-up Subjective: Patient is sitting up in chair, comfortably. No complaints. Bethanechol administration schedule has been changed. He just received a tray with food that is not part a gastroparesis diet. I spoke with one lady in dietary, who does not know what a gastroparesis diet is. I left a message on the distribution district supervisor's voice mail. Objective: PHYSICAL EXAMINATION: Vitals signs stable No fever HEENT: EOMI ABDOMEN: Soft, nondistended, nontender; MUSICAL INSTRUMENT SUPERVISOR: alert and oriented times three. Available Data (labs, X- Rays, Procedues) : Labs noted. ASSESSMENT/PLAN:Anorexia/gastroparesis. I'll try to figure out a way to have the patient receive a gastroparesis diet. It was a pleasure seeing Jordan Rico. Entered by: Tee Aguirre MD Nov 18, 2016 08:46
[2016-11-18] MEDS: SODIUM CHLORIDE 0.9% FLUSH 5 ML FLUSH FLUSH SCH ×2 (09:00→21:04)
--- NOTE | 2016-11-18 09:04 | HHI.GIFU ---
GI Follow-up Note Consult Follow-up Subjective: Patient laying in bed comfortably, no new complaints; no bowel movements/bleeding. Objective: PHYSICAL EXAMINATION: Vitals signs stable No fever HEENT: EOMI MOTION GRAPHICS ARTIST: alert and oriented times three. Available Data (labs, X- Rays, Procedues) : I reviewed the cholecystostomy images with Dr. Thompson: Pus in the gall bladder; sent for cultures. ASSESSMENT/PLAN:EGD this am. It was a pleasure seeing Jordan Rico. Entered by: Tee Aguirre MD Nov 18, 2016 09:04
[2016-11-18] MEDS ORDERED: PROPOFOL 200 MG/20 ML AMP IV ONE (10:14)
--- NOTE | 2016-11-18 10:54 | HHI.PR ---
Subjective Remarks Patient appears in nad. No pain. No n/v/d/c. He did not have a BM since yesterday. Plan for EGD today Objective Vitals Vital Signs Date Time Temp Pulse Resp B/P Pulse Ox O2 Delivery O2 Flow Rate FiO2 11/18/16 10:40 68 16 103/47 96 11/18/16 10:30 69 16 102/46 95 11/18/16 10:23 98.3 73 16 124/50 97 11/18/16 09:50 97.5 66 16 109/57 94 11/18/16 05:07 97.5 66 16 109/57 91 11/17/16 23:32 98.7 80 16 121/58 94 11/17/16 20:20 98.4 76 16 119/58 95 11/17/16 20:00 91 11/17/16 15:50 73 18 139/72 95 11/17/16 15:20 66 18 121/62 92 11/17/16 14:50 98.0 69 18 108/56 93 11/17/16 14:35 75 18 132/67 94 11/17/16 12:00 97.6 66 18 119/58 97 I/O 11/17/16 11/17/16 11/17/16 11/18/16 11/18/16 11/18/16 07:00 15:00 23:00 07:00 15:00 23:00 Intake Total 0 ml 0 ml 600 ml 318 ml 100 ml Output Total 150 ml 325 ml 600 ml Balance -150 ml -325 ml 600 ml -282 ml 100 ml Intake Oral 0 ml 0 ml 600 ml 120 ml IV Total 198 ml Other 100 ml Output Urine Total 150 ml 325 ml 250 ml Stool Total 0 ml Drainage Total 350 ml # Voids 2 # Bowel Movements 0 0 0 Result Diagram: 11/17/16 1036 11/17/16 0646 Imaging Last Impressions Percutaneous Cholangiogram 11/17/16 0000 Signed Impressions: Service Date/Time: Thursday, November 17, 2016 13:41 - CONCLUSION: Uncomplicated percutaneous cholecystostomy as above. Pus obtained from the gallbladder lumen. A sample was sent to microbiology. Allan Thompson Jr., MD Abdomen/Pelvis CT 11/16/16 1612 Signed Impressions: Service Date/Time: Wednesday, November 16, 2016 17:49 - CONCLUSION: Acute emphysematous cholecystitis. Several small abscesses in the adjacent liver. Garfield Suh MD Objective Remarks GENERAL: This is a pleasant elderly male patient, in no apparent distress. SKIN: No rashes, ecchymoses or lesions. Cool and dry. HEAD: Atraumatic. Normocephalic. EYES: No scleral icterus. No injection or drainage. ENT: Nose without bleeding, purulent drainage. NECK: Trachea midline. No JVD or lymphadenopathy. CARDIOVASCULAR: Regular rate and rhythm without murmurs, gallops, or rubs. RESPIRATORY: Clear to auscultation. Breath sounds equal bilaterally. No wheezes , rales, or rhonchi. GASTROINTESTINAL: Abdomen soft, non-tender, nondistended. No guarding. MUSCULOSKELETAL: Extremities without clubbing, cyanosis, or edema. No calf tenderness. NEUROLOGICAL: Awake and alert. Motor and sensory grossly within normal limits. Normal speech. A/P Problem List: (1) GI bleeding ICD Code: K92.2 Status: Acute (2) Acute emphysematous cholecystitis ICD Code: K81.0 Status: Acute (3) Leukocytosis ICD Code: D72.829 Status: Acute (4) Anemia ICD Code: D64.9 Status: Acute (5) Acute renal insufficiency ICD Code: N28.9 Status: Acute Assessment and Plan Mr. Rico is an 81-year-old male with past medical history of coronary artery disease status post CABG, hyperlipidemia, hypertension, and prostate hypertrophy who presented to the [place] emergency room on 11/16/2016 complaining of dark, tarry stool. Abdomen/pelvis CT with acute emphysematous cholecystitis and several small abscesses in the adjacent liver. He was transferred to the [facility] hospital for intervention at the request of hydroelectric powerplant supervisor, Dr. Friedman. GI bleeding gross melena noted during rectal examination per ER physician on admission - Consult gastroenterology - Nothing by mouth - Protonix drip - Plan for EGD 11/18 Dr Mcdermott is following. Acute emphysematous cholecystitis with transaminitis - Consult general surgery, appreciate recommendations - consulted interventional radiology s/p gallbladder drainage 11/17 Leukocytosis with neutrophilia and monocytosis Liver abscesses - Likely secondary to cholecystitis and liver abscesses - Zosyn 4.5 mg IV every 6 hours - Vancomycin IV with pharmacy consult to assist with therapeutic monitoring and dosing - Recheck CBC in a.m.; follow trends - Lactic acid level I.3 - Blood cultures pending; UA negative Anemia - likely related to GI blood loss - Hemoglobin 11.4 and hematocrit 33.2 on admission, with no recent labs to compare to - Recheck CBC in a.m. - Follow trends - Transfuse if indicated - Continuous cardiac telemetry Acute renal insufficiency likely secondary to dehydration - BUN elevated at 27, creatinine 1.40, and estimated GFR 49 on admission - Recheck BMP in a.m. and follow trends in renal indices - Avoid nephrotoxins DVT prophylaxis - SCDs Discussed Condition With patient, nurse and his at bedside Problem Qualifiers (1) GI bleeding: Qualified Code: K92.2 - Gastrointestinal hemorrhage, unspecified gastrointestinal hemorrhage type (2) Anemia: Qualified Code: D64.9 - Anemia, unspecified type Hina Hernandez MD Nov 18, 2016 10:54
--- NOTE | 2016-11-18 10:56 | MR ---
cc: ELIAZAR PRO M.D., HARRY M.D. DATE 11/18/2016 DATE OF 1935 PROCEDURE Panendoscopy with biopsies performed by Dr. Tee Friedman. INDICATIONS FOR THE PROCEDURE Several days of melena in this patient who has been taking baby aspirin long-term. He also has emphysematous cholecystitis and underwent radiographic placement of a cholecystostomy tube yesterday. Purulent material was present in the gallbladder. He is receiving antibiotics intravenously. MEDICATIONS FOR TODAY'S EXAM Sedation per anesthesiology INSTRUMENT The Pentax video gastroscope. PROCEDURE After obtaining written informed consent, the patient was placed in the left lateral decubitus position. Adequate sedation was administered. The video gastroscope was passed under direct vision through the oropharynx into the esophagus which appeared normal along its entire extent. The Z-line appeared normal at the GE junction at 41 cm. The gastric mucosa was examined carefully including views of the cardia and fundus with retroflexion. No abnormalities were detected. Gastric biopsies were obtained because of a 5 mm white based duodenal ulcer noted in the postbulbar duodenum. The bulb itself appeared a little bit edematous and erythematous and the distal duodenum beyond the ulcer appeared normal. The instrument was withdrawn. The procedure was terminated. The patient tolerated the procedure well and there no apparent complications. Upon completion, he was sedated and had normal stable vital signs. IMPRESSION 1. Normal esophageal mucosa. 2. Normal Z-line at the GE junction at 41 cm. 3. Normal gastric mucosa with biopsies taken to check for H pylori. 4. Normal pylorus and duodenal bulb. 5. White based 5 mm duodenal ulcer beyond the bulb with edematous folds and mild patchy erythema. 6. Normal mucosa beyond the ulcer. DISPOSITION The patient is to be observed per routine postprocedure protocol. He may return to his room, resume a regular diet, oral PPI would be adequate. There is no indication for intravenous PPI. Studies have shown it does no better than the orally administered formulation. We will contact the patient next week with the pathology report and if H. pylori is present, we will treat this appropriately. After the ulcer heals in about [id number] weeks, he may resume the aspirin and can use it long-term, but he will need to use a PPI such as Omeprazole or Prilosec OTC long-term, concomitantly. We will discuss at some point consideration for screening colonoscopy as he has never had this examination performed. ADDENDUM I spoke with Dr. Pepper and with the patient and his and with Dr. Pro regarding the patient's weight loss and the fact that he has never undergone colonoscopy. We have all decided together to proceed with colonoscopy tomorrow. If a lesion is found that requires surgery, the gallbladder surgery and colon resection could be performed at the same time. Dr. Pro reviewed the patient's old records and feels that it is safe for the patient to undergo the colonoscopy and surgical procedures. MD TRACEE Yanez/EVELYNE /10:26 AM /9:34 AM
[2016-11-18] MEDS ORDERED: PEG (High)/E-LYTE SOLN 4000 ML BTL PO ONE ×2 (11:00→16:00)
[2016-11-18] MEDS: VANCOMYCIN INJ 1,700 MG in SODIUM CHLORID 0.9% 500 ML INJ 500 ML IV SCH (11:00)
--- NOTE | 2016-11-18 11:33 | MR ---
cc: MEDINA MUNOZ M.D.,NATHANAEL PRO,ELIAZAR Lutz M.D. DATE 11/18/2016 ADDENDUM I spoke with Dr. Pepper and with the patient and his and with Dr. Pro regarding the patient's weight loss and the fact that he has never undergone colonoscopy. We have all decided together to proceed with colonoscopy tomorrow. If a lesion is found that requires surgery, the gallbladder surgery and colon resection could be performed at the same time. Dr. Pro reviewed the patient's old records and feels that it is safe for the patient to undergo the colonoscopy and surgical procedures. MD TRACEE Yanez/DJL /10:52 AM /11:29 AM
[2016-11-18] MEDS ORDERED: DO NOT ADM ANY ANTICOAGULANT DRUGS XX PRN (12:45)
--- NOTE | 2016-11-18 13:56 | HHI.PR ---
Subjective Subjective Notes Resting in bed at bedside Currently being pickup for EGD Objective Vitals/I&O Vital Signs Date Time Temp Pulse Resp B/P Pulse Ox O2 Delivery O2 Flow Rate FiO2 11/18/16 10:40 68 16 103/47 96 11/18/16 10:23 98.3 11/16/16 19:46 Room Air Labs Date/Time Procedure Status Source Growth 11/17/16 14:15 Gram Stain - Final Resulted Abscess Abdomen 11/17/16 14:15 Wound Culture Resulted Abscess Abdomen Pending 11/16/16 19:12 Aerobic Blood Culture - Preliminary Resulted Blood Peripheral NO GROWTH IN 2 DAYS 11/16/16 19:12 Anaerobic Blood Culture - Preliminary Resulted Blood Peripheral NO GROWTH IN 2 DAYS Cardiovascular: Regular Lungs: Clear Abdomen: Other (michael tube in place with green bile draining; tender around drain insertion site ) Extremities: No edema A/P Assessment and Plan 81 year old male with emphysematous cholecystitis and LGIB -Continue cholecystomy tube to drainage bag -Continue antibiotics -Agree with EGD -Okay to start diet when okay with GI Attending Note - Dr. Pepper EGD shows duodenal ulcer; likely cause of bleeding and melenic stools. Discussed with Dr. Friedman today; he will have pt. undergo colonoscopy tomorrow to rule out any colonic pathology, as pt. relates 20 lb. wt. loss recently. Also , colon may be adhered to gallbladder (or simply touching it); this may make surgery much more arduous and require open procedure. If colonscopy negative, will plan lap cholecystectomy Wednesday 11/22; if neoplastic process present, may need to plan different surgery. Discussed with patient and ; they are in agreement with plan. The exam, history, and the medical decision-making described in the above note were completed with the assistance of the mid-level provider. I reviewed and agree with the findings presented. I attest that I had a [id number] encounter with the patient on the same day, and personally performed and documented my assessment and findings in the medical record. Pili Delgadillo Nov 18, 2016 13:56 Fabio Pepper MD Nov 18, 2016 18:08
--- NOTE | 2016-11-18 15:37 | PD.ID.CON ---
History of Present Illness Service ID Consult Requested By Dr Hernandez Reason for Consult bacteremia Primary Care Physician No Primary Care Physician Diagnoses: History of Present Illness 81 yo male presented with melena few days ago and his CT abd/pel showed emphysematous choleycystitis Pt denies any past or current abdominal or RUQ pain He underwent percutaneous chocystostomy placement and EGD EGD showed duodenal lcer Gallbladder drainage is growing a GNB Pt is growing GPC in pairs in chains in 1/4 boittles in blood clx Review of Systems Constitutional: COMPLAINS OF: Fatigue, Weight loss, Chills, Change in appetite Gastrointestinal: COMPLAINS OF: Black stools, Diarrhea Except as stated in HPI: all other systems reviewed are Neg Past Family Social History Allergies: Coded Allergies: No Known Allergies (Verified , 11/16/16) Past Medical History Coronary artery disease status post CABG Hyperlipidemia Hypertension Prostate hypertrophy Past Surgical History CABG x4 in 1995 in [place], [place] Benign cyst removed from left breast Active Ordered Medications Medications where reviewed in EMR Antibiotics Include: shavon irene Family History Non-Contributory. Social History No Tobacco. No ETOH. No Illicit Drugs. Physical Exam Vital Signs Vital Signs Date Time Temp Pulse Resp B/P Pulse Ox O2 Delivery O2 Flow Rate FiO2 11/18/16 12:00 97.7 69 16 140/65 93 11/18/16 10:40 68 16 103/47 96 11/18/16 10:30 69 16 102/46 95 11/18/16 10:23 98.3 73 16 124/50 97 11/18/16 09:50 97.5 66 16 109/57 94 11/18/16 08:00 97.2 68 18 129/61 92 11/18/16 05:07 97.5 66 16 109/57 91 11/17/16 23:32 98.7 80 16 121/58 94 11/17/16 20:20 98.4 76 16 119/58 95 11/17/16 20:00 91 11/17/16 15:50 73 18 139/72 95 Physical Exam CONSTITUTIONAL/GENERAL: This is an adequately nourished patient, in no apparent distress. TUBES/LINES/DRAINS: SKIN: No jaundice, rashes, or lesions. Ecchymoses on upper extremities. No wounds seen anteriorly. Skin temperature appropriate. Not diaphoretic. HEAD: Atraumatic. Normocephalic. EYES: Pupils equal and round and reactive. Extraocular motions intact. No scleral icterus. No injection or drainage. Fundi not examined. ENT: Hearing grossly normal. Nose without bleeding or purulent drainage. Throat without visible erythema, exudates, masses, or lesions. NECK: Trachea midline. Supple, nontender. CARDIOVASCULAR: Regular rate and rhythm without murmurs, gallops, or rubs. No JVD. Peripheral pulses symmetric. RESPIRATORY/CHEST: Symmetric, unlabored respirations. Clear to auscultation. Breath sounds equal bilaterally. No wheezes, rales, or rhonchi. GASTROINTESTINAL: Abdomen soft, non-tender, nondistended. Biliary drain in place with dark brown bile No hepato-splenomegaly, or palpable masses. No guarding. Bowel sounds present. GENITOURINARY: Without palpable bladder distension. MUSCULOSKELETAL: Extremities without clubbing, cyanosis, or edema. No joint tenderness or effusion noted. No calf tenderness. No mottling or clubbing. LYMPHATICS: No palpable cervical or supraclavicular adenopathy. NEUROLOGICAL: Awake and alert. Motor and sensory grossly within normal limits. Follows commands. Cognitively sharp. Moves all extremities. PSYCHIATRIC: No obvious anxiety/depression. no apparent hallucinations or other psychotic thought process. Laboratory Date/Time Procedure Status Source Growth 11/17/16 14:15 Gram Stain - Final Resulted Abscess Abdomen 11/17/16 14:15 Wound Culture - Preliminary Resulted Gram Negative Juanito 11/16/16 19:12 Aerobic Blood Culture - Preliminary Resulted Blood Peripheral NO GROWTH IN 2 DAYS 11/16/16 19:12 Anaerobic Blood Culture - Preliminary Resulted Blood Peripheral NO GROWTH IN 2 DAYS Result Diagram: 11/17/16 1036 11/17/16 0646 Imaging Last Impressions Percutaneous Cholangiogram 11/17/16 0000 Signed Impressions: Service Date/Time: Thursday, November 17, 2016 13:41 - CONCLUSION: Uncomplicated percutaneous cholecystostomy as above. Pus obtained from the gallbladder lumen. A sample was sent to microbiology. Allan Thompson Jr., MD Abdomen/Pelvis CT 11/16/16 1612 Signed Impressions: Service Date/Time: Wednesday, November 16, 2016 17:49 - CONCLUSION: Acute emphysematous cholecystitis. Several small abscesses in the adjacent liver. Garfield Suh MD Assessment and Plan Assessment and Plan Acute acalculous emphysematous cholecystitis, - sp cholecystostomy placement - growin a GNB Low grade bacteremia, sugg of strep - likely 2/2 to biliary sepsis - cont zosyn - dc vancomycin - fu cultures Discussed Condition With pt, at b/s Kayleen Saenz MD Nov 18, 2016 15:37
[2016-11-19] MEDS: PIPERACIL-TAZO 4.5 GM PREMIX 100 ML IV SCH ×5 (00:12→23:01)
[2016-11-19 04:47] VITALS: BP 128/61; PULSE 89; RESP 16; TEMP 97.8; O2SAT 98
[2016-11-19 05:36] LABS: AUTOMATED NEUTROPHIL # 8.1 TH/MM3 (1.8-7.7); BASOPHIL % 0.4 % (0.0-2.0); EOSINOPHIL # 0.1 TH/MM3 (0-0.4); EOSINOPHIL % 0.5 % (0.0-4.0); HEMATOCRIT 30.5 % (39.0-51.0); HEMO FLAGS DIFF FINAL; LYMPH % 9.5 % (9.0-44.0); MEAN CELL VOLUME 89.5 FL (80.0-100.0); MEAN CORPUSCULAR HEMOGLOBIN 30.5 PG (27.0-34.0); MEAN CORPUSCULAR HGB CONC 34.1 % (32.0-36.0); MONO % 8.9 % (0.0-8.0); NEUT % 80.7 % (16.0-70.0); PLATELET COUNT 343 TH/MM3 (150-450); RED BLOOD COUNT 3.41 MIL/MM3 (4.50-5.90); RED CELL DISTRIBUTION WIDTH 13.5 % (11.6-17.2); WHITE BLOOD COUNT 10.1 TH/MM3 (4.0-11.0)
[2016-11-19 06:07] LABS: BICARBONATE 25.8 MEQ/L (21.0-32.0); POTASSIUM 3.6 MEQ/L (3.5-5.1)
[2016-11-19 07:50] VITALS: BP 130/64; PULSE 70; RESP 18; TEMP 98.2; O2SAT 96
[2016-11-19] MEDS ORDERED: LACTATED RINGER'S 1,000 ML BAG XX ONE (08:00)
[2016-11-19] MEDS ORDERED: LACTATED RINGER'S 1,000 ML BAG IV ONE (08:01)
[2016-11-19] MEDS ORDERED: PROPOFOL 200 MG/20 ML AMP IV ONE (08:01)
--- NOTE | 2016-11-19 11:48 | MR ---
cc: TEE FRIEDMAN M.D.,ELIAZAR OMER M.D., M.D. DATE: 11/19/2016 DATE OF : 1935 PROCEDURE Colonoscopy with polypectomies. SURGEON: Performed by Dr. Tee Friedman. The patient is an inpatient. INDICATIONS FOR PROCEDURE 20 pounds weight loss. He has never undergone colonoscopy. He is to undergo cholecystectomy because of emphysematous cholecystitis. We are evaluating the colon to check for any neoplastic process that may need surgery so that the patient does not have to undergo two surgical procedures. MEDICATIONS Sedation per anesthesiology. INSTRUMENT: The Pentax video colonoscope. PROCEDURE After obtaining written informed consent the patient was placed in the left lateral decubitus position. Adequate sedation was administered. A digital rectal examination was performed. The prostate was firm and slightly enlarged. The colonoscope was placed in the anus and advanced slowly to the cecum. The appendiceal orifice and ileocecal valve appeared normal. Upon withdrawal of the instrument the mucosal surfaces were well-visualized. A 5 mm polyp was removed with snare cautery from the descending colon and a similar size polyp was removed with snare cautery from the sigmoid colon minimal left-sided diverticulosis was noted a grade 1 internal hemorrhoid was noted on retroflexion. The instrument was withdrawn and the procedure was terminated. He tolerated it well and there no apparent complications. Upon completion he was sedated and had normal stable vital signs. IMPRESSION 1. Colonoscopy to cecum 2. Scant diverticulosis. 3. Two small polyps removed with snare cautery technique. DISPOSITION The patient is to be observed per routine postprocedure protocol he may resume his prior diet. No explanation was found for the weight loss. Cholecystectomy maybe performed as Dr. Michaud schedule allows. MD TRACEE Yanez/ambar /8:35 AM /10:44 AM
[2016-11-19] MEDS: SODIUM CHLORIDE 0.9% FLUSH 5 ML FLUSH FLUSH SCH ×2 (11:59→21:16)
[2016-11-19 12:00] VITALS: BP 125/73; PULSE 74; RESP 18; TEMP 98; O2SAT 96
[2016-11-19] MEDS: VANCOMYCIN INJ 1,700 MG in SODIUM CHLORID 0.9% 500 ML INJ 500 ML IV SCH (12:00)
[2016-11-19] MEDS: PANTOPRAZOLE SOD 40 MG DELAYED RELEASE TAB PO SCH (12:00)
--- NOTE | 2016-11-19 12:29 | HHI.PR ---
Subjective Remarks Went for colonoscopy, seen thereafter. Patient denies any pain. In the chair appears comfortable. No fever or chills. He had diarrhea after colonoscopy today. Diarrhea is dark greenish color. Objective Vitals Vital Signs Date Time Temp Pulse Resp B/P Pulse Ox O2 Delivery O2 Flow Rate FiO2 11/19/16 12:00 98.0 74 18 125/73 96 11/19/16 08:50 63 16 116/59 93 11/19/16 08:40 66 16 92/45 94 11/19/16 08:30 98.5 61 18 99/41 93 11/19/16 07:50 98.2 70 18 130/64 96 11/19/16 04:47 97.8 89 16 128/61 98 11/18/16 23:00 97.5 89 16 142/66 95 11/18/16 20:00 72 11/18/16 20:00 98.3 83 18 132/64 96 11/18/16 16:00 98.3 76 18 130/62 95 I/O 11/18/16 11/18/16 11/18/16 11/19/16 11/19/16 11/19/16 07:00 15:00 23:00 07:00 15:00 23:00 Intake Total 318 ml 820 ml 102 ml 208 ml 300 ml Output Total 600 ml 425 ml 200 ml 200 ml Balance -282 ml 395 ml -98 ml 8 ml 300 ml Intake Oral 120 ml 720 ml IV Total 198 ml 102 ml 208 ml Other 100 ml 300 ml Output Urine Total 250 ml 425 ml Stool Total 200 ml Drainage Total 350 ml 200 ml # Bowel Movements 0 0 Result Diagram: 11/19/16 0517 11/19/16 0517 Imaging Last Impressions Percutaneous Cholangiogram 11/17/16 0000 Signed Impressions: Service Date/Time: Thursday, November 17, 2016 13:41 - CONCLUSION: Uncomplicated percutaneous cholecystostomy as above. Pus obtained from the gallbladder lumen. A sample was sent to microbiology. Allan Thompson Jr., MD Abdomen/Pelvis CT 11/16/16 1612 Signed Impressions: Service Date/Time: Wednesday, November 16, 2016 17:49 - CONCLUSION: Acute emphysematous cholecystitis. Several small abscesses in the adjacent liver. Garfield Suh MD Objective Remarks GENERAL: This is a pleasant elderly male patient, in no apparent distress. SKIN: No rashes, ecchymoses or lesions. Cool and dry. HEAD: Atraumatic. Normocephalic. EYES: No scleral icterus. No injection or drainage. ENT: Nose without bleeding, purulent drainage. NECK: Trachea midline. No JVD or lymphadenopathy. CARDIOVASCULAR: Regular rate and rhythm without murmurs, gallops, or rubs. RESPIRATORY: Clear to auscultation. Breath sounds equal bilaterally. No wheezes , rales, or rhonchi. GASTROINTESTINAL: Abdomen soft, non-tender, nondistended. No guarding. MUSCULOSKELETAL: Extremities without clubbing, cyanosis, or edema. No calf tenderness. NEUROLOGICAL: Awake and alert. Motor and sensory grossly within normal limits. Normal speech. A/P Problem List: (1) GI bleeding ICD Code: K92.2 Status: Acute (2) Acute emphysematous cholecystitis ICD Code: K81.0 Status: Acute (3) Leukocytosis ICD Code: D72.829 Status: Acute (4) Anemia ICD Code: D64.9 Status: Acute (5) Acute renal insufficiency ICD Code: N28.9 Status: Acute Assessment and Plan Mr. Rico is an 81-year-old male with past medical history of coronary artery disease status post CABG, hyperlipidemia, hypertension, and prostate hypertrophy who presented to the [facility] emergency room on 11/16/2016 complaining of dark, tarry stool. Abdomen/pelvis CT with acute emphysematous cholecystitis and several small abscesses in the adjacent liver. He was transferred to the [facility] for intervention at the request of developmental education instructor, Dr. Friedman. GI bleeding gross melena noted during rectal examination per ER physician on admission - Consult gastroenterology - Nothing by mouth - Protonix drip - S/P EGD 11/18 Patient with duodenum ulcer. GI Dr Faust is following. - S/P colonoscopy to cecum 11/19 . Scant diverticulosis. 2 small polyops removed by snarescautery by Dr Faust Acute emphysematous cholecystitis with transaminitis - Consult general surgery, appreciate recommendations - consulted interventional radiology s/p gallbladder drainage 11/17 - Might need michael, surgery following Leukocytosis with neutrophilia and monocytosis Liver abscesses - sp cholecystostomy placement - growing Citrobacter and strep . Blood cultures with GPC. ID specialist was consulted. Seen by Dr Crossmann appreciate recommendations - cont zosyn dc vancomycin Follow up cultures. cultures - Likely secondary to cholecystitis and liver abscesses - Zosyn 4.5 mg IV every 6 hours - Recheck CBC in a.m.; follow trends - Lactic acid level I.3 - Blood cultures GPC; UA negative Anemia - likely related to GI blood loss - Hemoglobin 11.4 and hematocrit 33.2 on admission, with no recent labs to compare to - Recheck CBC in a.m. - Follow trends - Transfuse if indicated - Continuous cardiac telemetry Acute renal insufficiency likely secondary to dehydration - BUN elevated at 27, creatinine 1.40, and estimated GFR 49 on admission - Recheck BMP in a.m. and follow trends in renal indices - Avoid nephrotoxins DVT prophylaxis - SCDs Discussed Condition With patient, nurse and his at bedside Problem Qualifiers (1) GI bleeding: Qualified Code: K92.2 - Gastrointestinal hemorrhage, unspecified gastrointestinal hemorrhage type (2) Anemia: Qualified Code: D64.9 - Anemia, unspecified type Hina Hernandez MD Nov 19, 2016 12:29
[2016-11-19 13:32] VITALS: O2SAT 95
--- NOTE | 2016-11-19 13:40 | HHI.PR ---
Subjective Subjective Notes Up to chair Back from colonoscopy---reports Dr. Friedman found two polyps Objective Vitals/I&O Vital Signs Date Time Temp Pulse Resp B/P Pulse Ox O2 Delivery O2 Flow Rate FiO2 11/19/16 13:32 95 21 11/19/16 12:00 98.0 74 18 125/73 11/16/16 19:46 Room Air Labs Laboratory Tests Test 11/19/16 05:17 White Blood Count 10.1 Red Blood Count 3.41 Hemoglobin 10.4 Hematocrit 30.5 Mean Corpuscular Volume 89.5 Mean Corpuscular Hemoglobin 30.5 Mean Corpuscular Hemoglobin 34.1 Concent Red Cell Distribution Width 13.5 Platelet Count 343 Mean Platelet Volume 6.8 Neutrophils (%) (Auto) 80.7 Lymphocytes (%) (Auto) 9.5 Monocytes (%) (Auto) 8.9 Eosinophils (%) (Auto) 0.5 Basophils (%) (Auto) 0.4 Neutrophils # (Auto) 8.1 Lymphocytes # (Auto) 1.0 Monocytes # (Auto) 0.9 Eosinophils # (Auto) 0.1 Basophils # (Auto) 0.0 CBC Comment DIFF FINAL Differential Comment Sodium Level 138 Potassium Level 3.6 Chloride Level 102 Carbon Dioxide Level 25.8 Anion Gap 10 Blood Urea Nitrogen 10 Creatinine 1.37 Estimat Glomerular Filtration 50 Rate Random Glucose 96 Calcium Level 8.6 Date/Time Procedure Status Source Growth 11/17/16 14:15 Gram Stain - Final Complete Abscess Abdomen 11/17/16 14:15 Wound Culture - Final Complete Citrobacter Freundii Complex Strep Not A,B D 11/16/16 19:12 Aerobic Blood Culture - Preliminary Resulted Blood Peripheral NO GROWTH IN 3 DAYS 11/16/16 19:12 Anaerobic Blood Culture - Preliminary Resulted Blood Peripheral NO GROWTH IN 3 DAYS Cardiovascular: Regular Lungs: Clear Abdomen: Non-distended, Non-tender, Other (michael tube with dark bile drainaing ) Extremities: No edema A/P Assessment and Plan 81 year old male with emphysematous cholecystitis and LGIB -Continue cholecystomy tube to drainage bag -Continue antibiotics -S/p colonoscopy ----found two polyps today -Dr. Pepper planning to do lap michael on Tuesday -NPO Tuesday at [place] -Okay to start diet when okay with GI Attending Note - Dr. Pepper Feels well; discussed with Dr. Friedman; colonoscopy with no unexpected findings. For Dominick rodriguez on Tuesday; GAR discussed with patient and ; they vocalize understanding and agree to proceed. The exam, history, and the medical decision-making described in the above note were completed with the assistance of the mid-level provider. I reviewed and agree with the findings presented. I attest that I had a [id number] encounter with the patient on the same day, and personally performed and documented my assessment and findings in the medical record. Pili Delgadillo Nov 19, 2016 13:40 Fabio Pepper MD Nov 19, 2016 18:38
[2016-11-19 16:00] VITALS: BP 133/60; PULSE 73; RESP 18; TEMP 96.9; O2SAT 95
--- NOTE | 2016-11-19 19:12 | HHI.IDPN ---
Subjective Subjective Remarks pt feels "much better" afebrile tolerates abx OK no new co Antibiotics zosyn vanco Allergies: Coded Allergies: No Known Allergies (Verified , 11/16/16) Objective . Vital Signs Date Time Temp Pulse Resp B/P Pulse Ox O2 Delivery O2 Flow Rate FiO2 11/19/16 16:00 96.9 73 18 133/60 95 11/19/16 13:32 95 21 11/19/16 12:00 98.0 74 18 125/73 96 11/19/16 08:50 63 16 116/59 93 11/19/16 08:40 66 16 92/45 94 11/19/16 08:30 98.5 61 18 99/41 93 11/19/16 07:50 98.2 70 18 130/64 96 11/19/16 04:47 97.8 89 16 128/61 98 11/18/16 23:00 97.5 89 16 142/66 95 11/18/16 20:00 72 11/18/16 20:00 98.3 83 18 132/64 96 11/18/16 11/18/16 11/19/16 15:00 23:00 07:00 Intake Total 820 ml 102 ml 208 ml Output Total 425 ml 200 ml 200 ml Balance 395 ml -98 ml 8 ml Intake Oral 720 ml IV Total 102 ml 208 ml Other 100 ml Output Urine Total 425 ml Stool Total 200 ml Drainage Total 200 ml # Bowel Movements 0 . Laboratory Tests Test 11/19/16 05:17 White Blood Count 10.1 TH/MM3 Red Blood Count 3.41 MIL/MM3 Hemoglobin 10.4 GM/DL Hematocrit 30.5 % Mean Corpuscular Volume 89.5 FL Mean Corpuscular Hemoglobin 30.5 PG Mean Corpuscular Hemoglobin 34.1 % Concent Red Cell Distribution Width 13.5 % Platelet Count 343 TH/MM3 Mean Platelet Volume 6.8 FL Neutrophils (%) (Auto) 80.7 % Lymphocytes (%) (Auto) 9.5 % Monocytes (%) (Auto) 8.9 % Eosinophils (%) (Auto) 0.5 % Basophils (%) (Auto) 0.4 % Neutrophils # (Auto) 8.1 TH/MM3 Lymphocytes # (Auto) 1.0 TH/MM3 Monocytes # (Auto) 0.9 TH/MM3 Eosinophils # (Auto) 0.1 TH/MM3 Basophils # (Auto) 0.0 TH/MM3 CBC Comment DIFF FINAL Differential Comment Laboratory Tests Test 11/19/16 05:17 Sodium Level 138 MEQ/L Potassium Level 3.6 MEQ/L Chloride Level 102 MEQ/L Carbon Dioxide Level 25.8 MEQ/L Anion Gap 10 MEQ/L Blood Urea Nitrogen 10 MG/DL Creatinine 1.37 MG/DL Estimat Glomerular Filtration 50 ML/MIN Rate Random Glucose 96 MG/DL Calcium Level 8.6 MG/DL Microbiology Date/Time Procedure Status Source Growth 11/16/16 19:10 Aerobic Blood Culture - Preliminary Resulted Blood Peripheral NO GROWTH IN 3 DAYS 11/16/16 19:10 Anaerobic Blood Culture - Preliminary Resulted Gram Positive Cocci 11/16/16 19:12 Aerobic Blood Culture - Preliminary Resulted Blood Peripheral NO GROWTH IN 3 DAYS 11/16/16 19:12 Anaerobic Blood Culture - Preliminary Resulted Blood Peripheral NO GROWTH IN 3 DAYS 11/17/16 14:15 Gram Stain - Final Complete Abscess Abdomen 11/17/16 14:15 Wound Culture - Final Complete Citrobacter Freundii Complex Strep Not A,B D Imaging Last Impressions Percutaneous Cholangiogram 11/17/16 0000 Signed Impressions: Service Date/Time: Thursday, November 17, 2016 13:41 - CONCLUSION: Uncomplicated percutaneous cholecystostomy as above. Pus obtained from the gallbladder lumen. A sample was sent to microbiology. Allan Thompson Jr., MD Abdomen/Pelvis CT 11/16/16 1612 Signed Impressions: Service Date/Time: Wednesday, November 16, 2016 17:49 - CONCLUSION: Acute emphysematous cholecystitis. Several small abscesses in the adjacent liver. Garfield Suh MD Physical Exam CONSTITUTIONAL/GENERAL: This is an adequately nourished patient, in no apparent distress. TUBES/LINES/DRAINS: biliary accordeon drain in place with brown bile SKIN: No jaundice, rashes, or lesions. Ecchymoses on upper extremities. No wounds seen anteriorly. Skin temperature appropriate. Not diaphoretic. EYES: Pupils equal and round and reactive. Extraocular motions intact. No scleral icterus. No injection or drainage. Fundi not examined. CARDIOVASCULAR: Regular rate and rhythm without murmurs, gallops, or rubs. No JVD. Peripheral pulses symmetric. RESPIRATORY/CHEST: Symmetric, unlabored respirations. Clear to auscultation. Breath sounds equal bilaterally. No wheezes, rales, or rhonchi. GASTROINTESTINAL: Abdomen soft, non-tender, nondistended. Biliary drain in place with dark brown bile No hepato-splenomegaly, or palpable masses. No guarding. Bowel sounds present. MUSCULOSKELETAL: Extremities without clubbing, cyanosis, or edema. NEUROLOGICAL: Awake and alert. Motor and sensory grossly within normal limits. Follows commands. Cognitively sharp. Moves all extremities. PSYCHIATRIC: calm cooperative Assessment & Plan Remarks Acute acalculous emphysematous cholecystitis, - sp cholecystostomy placement - growing polimicrobial rodrigo Low grade bacteremia, sugg of strep (pairs, chains) - likely 2/2 to biliary sepsis - cont zosyn - dc vancomycin - fu blood clx untill final Kayleen Saenz MD Nov 19, 2016 19:12
[2016-11-19 20:00] VITALS: BP 132/61; PULSE 67; RESP 16; TEMP 98; O2SAT 93
[2016-11-19] MEDS: amLODIPine BESYLATE 5 MG TAB PO SCH (21:15)
[2016-11-19] MEDS: ATENOLOL 25 MG TAB PO SCH (21:15)
[2016-11-19] MEDS: TAMSULOSIN HCL 0.4 MG CAP PO SCH (21:15)
[2016-11-19] MEDS: LISINOPRIL 10 MG TAB PO SCH (21:15)
[2016-11-19] MEDS: ATORVASTATIN 40 MG TAB PO SCH (21:15)
[2016-11-20] VITALS (11 sets, daily range): BP systolic 90–133; BP diastolic 53–62; PULSE 50–79; RESP 16–20; TEMP 97.5–98.3; O2SAT 92–95
[2016-11-20] MEDS: PIPERACIL-TAZO 4.5 GM PREMIX 100 ML IV SCH ×4 (05:18→23:27)
[2016-11-20] MEDS: PANTOPRAZOLE SOD 40 MG DELAYED RELEASE TAB PO SCH (09:52)
[2016-11-20] MEDS: SODIUM CHLORIDE 0.9% FLUSH 5 ML FLUSH FLUSH SCH ×2 (09:53→21:00)
[2016-11-20] MEDS ORDERED: PHARMACY ORDERED LAB XX ONE (10:45)
--- NOTE | 2016-11-20 12:12 | HHI.PR ---
Subjective Remarks Patient without n/v/d/c. Pain is controlled by meds. No fever or chills. Plan for michael on Tuesday Objective Vitals Vital Signs Date Time Temp Pulse Resp B/P Pulse Ox O2 Delivery O2 Flow Rate FiO2 11/20/16 08:00 98.0 50 18 110/54 92 11/20/16 06:08 66 11/20/16 04:00 97.7 59 20 123/60 93 11/20/16 00:00 98.3 62 20 109/56 92 11/19/16 20:00 98.0 67 16 132/61 93 11/19/16 16:00 96.9 73 18 133/60 95 11/19/16 13:32 95 21 I/O 11/19/16 11/19/16 11/19/16 11/20/16 11/20/16 11/20/16 07:00 15:00 23:00 07:00 15:00 23:00 Intake Total 208 ml 900 ml 940 ml 240 ml Output Total 200 ml 125 ml Balance 8 ml 900 ml 940 ml 115 ml Intake Oral 600 ml 240 ml 240 ml IV Total 208 ml 700 ml Other 300 ml Output Urine Total 125 ml Drainage Total 200 ml # Voids 3 3 # Bowel Movements 1 0 0 Result Diagram: 11/19/16 0517 11/19/16 0517 Imaging Last Impressions Percutaneous Cholangiogram 11/17/16 0000 Signed Impressions: Service Date/Time: Thursday, November 17, 2016 13:41 - CONCLUSION: Uncomplicated percutaneous cholecystostomy as above. Pus obtained from the gallbladder lumen. A sample was sent to microbiology. Allan Thompson Jr., MD Abdomen/Pelvis CT 11/16/16 1612 Signed Impressions: Service Date/Time: Wednesday, November 16, 2016 17:49 - CONCLUSION: Acute emphysematous cholecystitis. Several small abscesses in the adjacent liver. Garfield Suh MD Objective Remarks GENERAL: This is a pleasant elderly male patient, in no apparent distress. SKIN: No rashes, ecchymoses or lesions. Cool and dry. HEAD: Atraumatic. Normocephalic. EYES: No scleral icterus. No injection or drainage. ENT: Nose without bleeding, purulent drainage. NECK: Trachea midline. No JVD or lymphadenopathy. CARDIOVASCULAR: Regular rate and rhythm without murmurs, gallops, or rubs. RESPIRATORY: Clear to auscultation. Breath sounds equal bilaterally. No wheezes , rales, or rhonchi. GASTROINTESTINAL: Abdomen soft, non-tender, nondistended. No guarding. MUSCULOSKELETAL: Extremities without clubbing, cyanosis, or edema. No calf tenderness. NEUROLOGICAL: Awake and alert. Motor and sensory grossly within normal limits. Normal speech. A/P Problem List: (1) GI bleeding ICD Code: K92.2 Status: Acute (2) Acute emphysematous cholecystitis ICD Code: K81.0 Status: Acute (3) Leukocytosis ICD Code: D72.829 Status: Acute (4) Anemia ICD Code: D64.9 Status: Acute (5) Acute renal insufficiency ICD Code: N28.9 Status: Acute Assessment and Plan Mr. Rico is an 81-year-old male with past medical history of coronary artery disease status post CABG, hyperlipidemia, hypertension, and prostate hypertrophy who presented to the [place] emergency room on 11/16/2016 complaining of dark, tarry stool. Abdomen/pelvis CT with acute emphysematous cholecystitis and several small abscesses in the adjacent liver. He was transferred to the [facility] hospital for intervention at the request of channel man, Dr. Friedman. GI bleeding gross melena noted during rectal examination per ER physician on admission - Consult gastroenterology - Nothing by mouth - Protonix drip - S/P EGD 11/18 Patient with duodenum ulcer. GI Dr Faust is following. - S/P colonoscopy to cecum 11/19 . Scant diverticulosis. 2 small polyops removed by snarescautery by Dr aFust - Plan for michael per surgery on Tuesday Acute emphysematous cholecystitis with transaminitis - Consult general surgery, appreciate recommendations - consulted interventional radiology s/p gallbladder drainage 11/17 - Might need michael, surgery following Leukocytosis with neutrophilia and monocytosis Liver abscesses - sp cholecystostomy placement - growing Citrobacter and strep . Blood cultures with GPC. ID specialist was consulted. Seen by Dr Lopez appreciate recommendations - cont zosyn dc vancomycin Follow up cultures. cultures - Likely secondary to cholecystitis and liver abscesses - Zosyn 4.5 mg IV every 6 hours - Recheck CBC in a.m.; follow trends - Lactic acid level I.3 - Blood cultures GPC; UA negative Anemia - likely related to GI blood loss - Hemoglobin 11.4 and hematocrit 33.2 on admission, with no recent labs to compare to - Recheck CBC in a.m. - Follow trends - Transfuse if indicated - Continuous cardiac telemetry Acute renal insufficiency likely secondary to dehydration - BUN elevated at 27, creatinine 1.40, and estimated GFR 49 on admission - Recheck BMP in a.m. and follow trends in renal indices - Avoid nephrotoxins DVT prophylaxis - SCDs Discussed Condition With patient, nurse and his at bedside Problem Qualifiers (1) GI bleeding: Qualified Code: K92.2 - Gastrointestinal hemorrhage, unspecified gastrointestinal hemorrhage type (2) Anemia: Qualified Code: D64.9 - Anemia, unspecified type Hina Hernandez MD Nov 20, 2016 12:12
[2016-11-20] MEDS: ACETAMINOPHEN/HYDROcodone 325 MG/5 MG TAB PO PRN ×2 (14:16→21:13)
[2016-11-20] MEDS: TAMSULOSIN HCL 0.4 MG CAP PO SCH (20:59)
[2016-11-20] MEDS: ATORVASTATIN 40 MG TAB PO SCH (20:59)
[2016-11-20] MEDS: ATENOLOL 25 MG TAB PO SCH (21:14)
--- NOTE | 2016-11-20 22:29 | HHI.PR ---
Subjective Subjective Notes no acute events pain controlled Objective Vitals/I&O Vital Signs Date Time Temp Pulse Resp B/P Pulse Ox O2 Delivery O2 Flow Rate FiO2 11/20/16 16:00 97.9 61 18 111/56 93 11/20/16 09:26 21 11/16/16 19:46 Room Air Labs Date/Time Procedure Status Source Growth 11/17/16 14:15 Gram Stain - Final Complete Abscess Abdomen 11/17/16 14:15 Wound Culture - Final Complete Citrobacter Freundii Complex Strep Not A,B D 11/16/16 19:12 Aerobic Blood Culture - Preliminary Resulted Blood Peripheral NO GROWTH IN 4 DAYS 11/16/16 19:12 Anaerobic Blood Culture - Preliminary Resulted Blood Peripheral NO GROWTH IN 4 DAYS Abdomen: Non-distended, Non-tender Extremities: No edema, Perfused Narrative Exam biliary drain in place, draining bile A/P Assessment and Plan 81yo male s/p cholecystostomy tube, stable. plan for cholecystostomy Tuesday tolerating diet Cuate Salazar MD Nov 20, 2016 22:29
[2016-11-20] MEDS: LISINOPRIL 10 MG TAB PO SCH (23:26)
[2016-11-20] MEDS: amLODIPine BESYLATE 5 MG TAB PO SCH (23:26)
[2016-11-21] VITALS (7 sets, daily range): BP systolic 99–119; BP diastolic 53–57; PULSE 50–72; RESP 18–22; TEMP 97.5–98.6; O2SAT 92–96
[2016-11-21] MEDS: PIPERACIL-TAZO 4.5 GM PREMIX 100 ML IV SCH ×3 (05:39→18:05)
[2016-11-21] MEDS: PANTOPRAZOLE SOD 40 MG DELAYED RELEASE TAB PO SCH (09:44)
[2016-11-21] MEDS: SODIUM CHLORIDE 0.9% FLUSH 5 ML FLUSH FLUSH SCH ×2 (12:03→21:22)
--- NOTE | 2016-11-21 13:16 | HHI.PR ---
Subjective Remarks In the chair. Has some cough. Will add incentive spirometry. Says pain is controlled by meds. No fever or chills. Drain in place. Objective Vitals Vital Signs Date Time Temp Pulse Resp B/P Pulse Ox O2 Delivery O2 Flow Rate FiO2 11/21/16 12:00 98.1 50 20 99/53 95 11/21/16 10:59 92 21 11/21/16 08:00 97.5 63 22 100/56 94 11/21/16 04:09 97.7 72 19 119/57 92 11/20/16 23:15 97.9 68 16 133/62 92 11/20/16 20:15 56 11/20/16 20:00 98.1 62 18 109/53 92 11/20/16 16:00 97.9 61 18 111/56 93 11/20/16 15:16 20 I/O 11/20/16 11/20/16 11/20/16 11/21/16 11/21/16 11/21/16 07:00 15:00 23:00 07:00 15:00 23:00 Intake Total 240 ml 360 ml 320 ml 220 ml Output Total 125 ml 300 ml 200 ml 210 ml Balance 115 ml 60 ml 120 ml 10 ml Intake Oral 240 ml 360 ml 320 ml 220 ml Output Urine Total 125 ml 300 ml 200 ml 200 ml Drainage Total 10 ml # Bowel Movements 0 0 Result Diagram: 11/19/16 0517 11/21/16 0623 Imaging Last Impressions Percutaneous Cholangiogram 11/17/16 0000 Signed Impressions: Service Date/Time: Thursday, November 17, 2016 13:41 - CONCLUSION: Uncomplicated percutaneous cholecystostomy as above. Pus obtained from the gallbladder lumen. A sample was sent to microbiology. Allan Thompson Jr., MD Abdomen/Pelvis CT 11/16/16 1612 Signed Impressions: Service Date/Time: Wednesday, November 16, 2016 17:49 - CONCLUSION: Acute emphysematous cholecystitis. Several small abscesses in the adjacent liver. Garfield Suh MD Objective Remarks GENERAL: This is a pleasant elderly male patient, in no apparent distress. SKIN: No rashes, ecchymoses or lesions. Cool and dry. HEAD: Atraumatic. Normocephalic. EYES: No scleral icterus. No injection or drainage. ENT: Nose without bleeding, purulent drainage. NECK: Trachea midline. No JVD or lymphadenopathy. CARDIOVASCULAR: Regular rate and rhythm without murmurs, gallops, or rubs. RESPIRATORY: Clear to auscultation. Breath sounds equal bilaterally. No wheezes , rales, or rhonchi. GASTROINTESTINAL: Abdomen soft, non-tender, nondistended. No guarding. MUSCULOSKELETAL: Extremities without clubbing, cyanosis, or edema. No calf tenderness. NEUROLOGICAL: Awake and alert. Motor and sensory grossly within normal limits. Normal speech. A/P Problem List: (1) GI bleeding ICD Code: K92.2 Status: Acute (2) Acute emphysematous cholecystitis ICD Code: K81.0 Status: Acute (3) Leukocytosis ICD Code: D72.829 Status: Acute (4) Anemia ICD Code: D64.9 Status: Acute (5) Acute renal insufficiency ICD Code: N28.9 Status: Acute Assessment and Plan Mr. Rico is an 81-year-old male with past medical history of coronary artery disease status post CABG, hyperlipidemia, hypertension, and prostate hypertrophy who presented to the [place] emergency room on 11/16/2016 complaining of dark, tarry stool. Abdomen/pelvis CT with acute emphysematous cholecystitis and several small abscesses in the adjacent liver. He was transferred to the main hospital for intervention at the request of cargo supervisor, Dr. Friedman. GI bleeding gross melena noted during rectal examination per ER physician on admission - Consult gastroenterology - Nothing by mouth - Protonix drip - S/P EGD 11/18 Patient with duodenum ulcer. GI Dr Faust is following. - S/P colonoscopy to cecum 11/19 . Scant diverticulosis. 2 small polyops removed by snarescautery by Dr Faust - Plan for michael per surgery on Tuesday Acute emphysematous cholecystitis with transaminitis - Consult general surgery, appreciate recommendations - consulted interventional radiology s/p gallbladder drainage 11/17 - Might need michael, surgery following Leukocytosis with neutrophilia and monocytosis Liver abscesses - sp cholecystostomy placement - growing Citrobacter and strep . Blood cultures with GPC. ID specialist was consulted. Seen by Dr Lopez appreciate recommendations - cont zosyn dc vancomycin Follow up cultures. cultures - Likely secondary to cholecystitis and liver abscesses - Zosyn 4.5 mg IV every 6 hours - Recheck CBC in a.m.; follow trends - Lactic acid level I.3 - Blood cultures GPC; UA negative Anemia - likely related to GI blood loss - Hemoglobin 11.4 and hematocrit 33.2 on admission, with no recent labs to compare to - Recheck CBC in a.m. - Follow trends - Transfuse if indicated - Continuous cardiac telemetry Acute renal insufficiency likely secondary to dehydration - BUN elevated at 27, creatinine 1.40, and estimated GFR 49 on admission - Recheck BMP in a.m. and follow trends in renal indices - Avoid nephrotoxins DVT prophylaxis - SCDs Discussed Condition With patient, nurse and his at bedside Problem Qualifiers (1) GI bleeding: Qualified Code: K92.2 - Gastrointestinal hemorrhage, unspecified gastrointestinal hemorrhage type (2) Anemia: Qualified Code: D64.9 - Anemia, unspecified type Hina Hernandez MD Nov 21, 2016 13:16
--- NOTE | 2016-11-21 13:51 | HHI.PR ---
Subjective Subjective Notes DAILY PROGRESS NOTE FOR SURGICAL ATTENDING, DR. NOLBERTO ROSE I'm ready for my surgery tomorrow Objective Vitals/I&O Vital Signs Date Time Temp Pulse Resp B/P Pulse Ox O2 Delivery O2 Flow Rate FiO2 11/21/16 12:00 98.1 50 20 99/53 95 11/21/16 10:59 21 Labs Laboratory Tests Test 11/21/16 06:23 Creatinine 1.26 Estimat Glomerular Filtration 55 Rate Date/Time Procedure Status Source Growth 11/17/16 14:15 Gram Stain - Final Complete Abscess Abdomen 11/17/16 14:15 Wound Culture - Final Complete Citrobacter Freundii Complex Strep Not A,B D 11/16/16 19:12 Aerobic Blood Culture - Final Complete Blood Peripheral NO GROWTH IN 5 DAYS 11/16/16 19:12 Anaerobic Blood Culture - Final Complete Blood Peripheral NO GROWTH IN 5 DAYS Radiology Last Impressions Percutaneous Cholangiogram 11/17/16 0000 Signed Impressions: Service Date/Time: Thursday, November 17, 2016 13:41 - CONCLUSION: Uncomplicated percutaneous cholecystostomy as above. Pus obtained from the gallbladder lumen. A sample was sent to microbiology. Allan Thompson Jr., MD Abdomen/Pelvis CT 11/16/16 1612 Signed Impressions: Service Date/Time: Wednesday, November 16, 2016 17:49 - CONCLUSION: Acute emphysematous cholecystitis. Several small abscesses in the adjacent liver. Garfield Suh MD Cardiovascular: Regular Abdomen: Non-distended, Non-tender, Other (cholangiogram catheter) A/P Problem List: (1) Acute emphysematous cholecystitis (2) Anemia (3) GI bleeding (4) Leukocytosis (5) Acute renal insufficiency Assessment and Plan 9-year-old gentleman who had a cholecystotomy tube placed for acute cholecystitis he has now recovered Dr. Pepper plans operative intervention 9:30 tomorrow morning according to the patient and his says they have signed the consent form We'll make him nothing by mouth after midnight Problem Qualifiers (1) Anemia: Qualified Code: D64.9 - Anemia, unspecified type (2) GI bleeding: Qualified Code: K92.2 - Gastrointestinal hemorrhage, unspecified gastrointestinal hemorrhage type Nolberto Rose MD Nov 21, 2016 13:51
[2016-11-21] MEDS: amLODIPine BESYLATE 5 MG TAB PO SCH (21:21)
[2016-11-21] MEDS: LISINOPRIL 10 MG TAB PO SCH (21:21)
[2016-11-21] MEDS: ATENOLOL 25 MG TAB PO SCH (21:21)
[2016-11-21] MEDS: ATORVASTATIN 40 MG TAB PO SCH (21:21)
[2016-11-21] MEDS: TAMSULOSIN HCL 0.4 MG CAP PO SCH (21:21)
[2016-11-21] MEDS: ACETAMINOPHEN/HYDROcodone 325 MG/10 MG TAB PO PRN (21:23)
[2016-11-22] VITALS: BP 121/59; PULSE 56; RESP 17; TEMP 97.8; O2SAT 93
[2016-11-22] MEDS: PIPERACIL-TAZO 4.5 GM PREMIX 100 ML IV SCH ×5 (00:39→19:26)
[2016-11-22 04:00] VITALS: BP 122/64; PULSE 61; RESP 17; TEMP 97.6; O2SAT 94
[2016-11-22] MEDS: LACTATED RINGER'S 1000 ML IV SCH (04:45)
[2016-11-22] MEDS ORDERED: BUPIVACAINE/EPINEPHRINE 0.25% PF 30 ML VIAL ONE (07:42)
[2016-11-22 08:00] VITALS: BP 135/60; PULSE 59; RESP 20; TEMP 98.4; O2SAT 93
[2016-11-22 08:29] VITALS: O2SAT 95
[2016-11-22] MEDS: PANTOPRAZOLE SOD 40 MG DELAYED RELEASE TAB PO SCH (08:45)
[2016-11-22] MEDS ORDERED: MIDAZOLAM HCL 2 MG/2 ML VIAL ONE (09:26)
[2016-11-22] MEDS ORDERED: ACETAMINOPHEN 1000 MG/100 ML VIAL IV ONE (09:26)
[2016-11-22] MEDS ORDERED: SODIUM CHLOR 0.9% 1000 ML INJ 1,000 ML IV ONE (10:13)
[2016-11-22] MEDS ORDERED: SODIUM CHLOR 0.9% 250 ML INJ 250 ML IV ONE ×2 (10:13→16:00)
[2016-11-22] MEDS ORDERED: LACTATED RINGER'S 1000 ML INJ 1,000 ML IV ONE (10:13)
[2016-11-22] MEDS ORDERED: NEOSTIGMINE 3 MG/3 ML SYR IV ONE (10:13)
[2016-11-22] MEDS ORDERED: PROPOFOL 200 MG/20 ML AMP IV ONE (10:13)
[2016-11-22] MEDS ORDERED: ONDANSETRON HCL 4 MG/2 ML VIAL IV PUSH ONE (10:13)
[2016-11-22] MEDS ORDERED: fentaNYL CITRATE 250 MCG/5 ML AMP ONE (10:42)
[2016-11-22 12:17] LABS: BLOOD GAS BASE EXCESS -1.4 mmol/L (-2-2); BLOOD GAS CARBOXYHEMOGLOBIN 1.5 % (0-4); BLOOD GAS HCO3 23 mmol/L (22-26); BLOOD GAS METHEMOGLOBIN 0.9 % (0-2); BLOOD GAS O2 HGB SATURATION 97 % (90-100); BLOOD GAS OXYGEN CONTENT 16.8 Vol % (12.0-20.0); BLOOD GAS PCO2 39 mmHg (38-42); BLOOD GAS PO2 167 mmHg (61-120); BLOOD GAS TOTAL HGB 12.1 G/DL (12.0-16.0); CRITICAL VALUE NO; DRAW SITE IN OR; FIO2 50 %; OXYGEN DEVICE VENTILATOR; STAT YES; TEMP CORR TO 98.6; VENT SETTINGS IN OR
[2016-11-22] MEDS ORDERED: NEOMYCIN/POLYMYXIN/BACITRACIN OINT 15 GM TUBE ONE (12:41)
[2016-11-22] MEDS ORDERED: DO NOT ADM ANY ANTICOAGULANT DRUGS XX PRN (13:05)
--- NOTE | 2016-11-22 13:16 | HHI.PR ---
cc: Fabio Pepper MD Immediate Post Op Note Procedure Date: Nov 22, 2016 Pre Op Diagnosis: Emphysematous cholecystitis Post Op Diagnosis: Same, with gangrenous changes Surgeon: Fabio Pepper Deputy Clerk Of Court(s): SCOTTIE Wise Procedure: Laparoscopic cholecystectomy converted to open cholecystectomy Findings: Severe inflammatory process involving portion of proximal transverse colon just past hepatic flexure Complications: None Specimen(s) removed: Gallbladder and stones to pathology Estimated blood loss: 1200 ml Anesthesia: General Drains: DANITA IVF (2000 ml) Patient to: PACU Patient Condition: Good Date/Time of Procedure: SEE SURGICAL CARE RECORD Fabio Pepper MD Nov 22, 2016 13:16
[2016-11-22] MEDS ORDERED: *ONDANSETRON 4 MG VIAL PERIprocedural Use ONLY ONE (13:32)
[2016-11-22 13:33] LABS: HEMATOCRIT 22.1 % (39.0-51.0); REVIEW FLAG FINAL
--- NOTE | 2016-11-22 13:37 | EKG ---
Date Performed: 11/22/2016 Time Performed: 07:02:55 PTAGE: 81 years EKG: SINUS BRADYCARDIA WITH OCCASIONAL VENTRICULAR PREMATURE COMPLEXES POSSIBLE RIGHT VENTRICULA R CONDUCTION DELAY INFERIOR MYOCARDIAL INFARCTION , PROBABLY OLD ABNORMAL ECG Compared to prior josh ng no significant change PREVIOUS TRACING : 02/14/2006 09.18 DOCTOR: Kennedy Corwe Interpretating Date/Time 11/22/2016 13:36:08
--- NOTE | 2016-11-22 14:27 | HHI.PR ---
Subjective Remarks Went for surgery in the morning. seen thereafter in PACU. Patient say she feels very tired. Says he feels like he run a marathon. No sob or chest pain . No n/v/ d/c. No fever or chills. No pain at this time. Objective Vitals Vital Signs Date Time Temp Pulse Resp B/P Pulse Ox O2 Delivery O2 Flow Rate FiO2 11/22/16 08:29 95 21 11/22/16 08:00 98.4 59 20 135/60 93 11/22/16 04:00 97.6 61 17 122/64 94 11/22/16 00:00 97.8 56 17 121/59 93 11/21/16 20:00 98.6 61 18 112/53 96 11/21/16 19:59 60 11/21/16 16:00 97.5 56 18 111/56 95 I/O 11/21/16 11/21/16 11/21/16 11/22/16 11/22/16 11/22/16 06:59 14:59 22:59 06:59 14:59 22:59 Intake Total 220 ml 480 ml 380 ml 0 ml 2300 ml Output Total 210 ml 400 ml 1200 ml Balance 10 ml 480 ml 380 ml -400 ml 1100 ml Intake Oral 220 ml 480 ml 380 ml 0 ml Packed Cells 300 ml Other 2000 ml Output Urine Total 200 ml 400 ml Drainage Total 10 ml Estimated Blood Loss 1200 ml # Voids 2 2 Result Diagram: 11/22/16 1329 11/21/16 0623 Imaging Last Impressions Percutaneous Cholangiogram 11/17/16 0000 Signed Impressions: Service Date/Time: Thursday, November 17, 2016 13:41 - CONCLUSION: Uncomplicated percutaneous cholecystostomy as above. Pus obtained from the gallbladder lumen. A sample was sent to microbiology. Allan Thompson Jr., MD Abdomen/Pelvis CT 11/16/16 1612 Signed Impressions: Service Date/Time: Wednesday, November 16, 2016 17:49 - CONCLUSION: Acute emphysematous cholecystitis. Several small abscesses in the adjacent liver. Garfield Suh MD Objective Remarks GENERAL: This is a pleasant elderly male patient, in no apparent distress. SKIN: No rashes, ecchymoses or lesions. Cool and dry. HEAD: Atraumatic. Normocephalic. EYES: No scleral icterus. No injection or drainage. ENT: Nose without bleeding, purulent drainage. NECK: Trachea midline. No JVD or lymphadenopathy. CARDIOVASCULAR: Regular rate and rhythm without murmurs, gallops, or rubs. RESPIRATORY: Clear to auscultation. Breath sounds equal bilaterally. No wheezes , rales, or rhonchi. GASTROINTESTINAL: Abdomen soft, non-tender, nondistended. No guarding. s/p michael MUSCULOSKELETAL: Extremities without clubbing, cyanosis, or edema. No calf tenderness. NEUROLOGICAL: Awake and alert. Motor and sensory grossly within normal limits. Normal speech. Procedures -11/22 S/P Laparoscopic cholecystectomy by Dr Pepper converted to open cholecystectomy A/P Problem List: (1) GI bleeding ICD Code: K92.2 Status: Acute (2) Acute emphysematous cholecystitis ICD Code: K81.0 Status: Acute (3) Leukocytosis ICD Code: D72.829 Status: Acute (4) Anemia ICD Code: D64.9 Status: Acute (5) Acute renal insufficiency ICD Code: N28.9 Status: Acute Assessment and Plan Mr. Rico is an 81-year-old male with past medical history of coronary artery disease status post CABG, hyperlipidemia, hypertension, and prostate hypertrophy who presented to the [place] emergency room on 11/16/2016 complaining of dark, tarry stool. Abdomen/pelvis CT with acute emphysematous cholecystitis and several small abscesses in the adjacent liver. He was transferred to the [facility] hospital for intervention at the request of real estate site analyst, Dr. Friedman, surgical eval . GI bleeding gross melena noted during rectal examination per ER physician on admission - Consult gastroenterology - Continue Protonix - S/P EGD 11/18 Patient with duodenum ulcer. GI Dr Faust is following. - S/P colonoscopy to cecum 11/19 . Scant diverticulosis. 2 small polyops removed by snarescautery by Dr Faust Acute emphysematous cholecystitis with transaminitis - Consult general surgery, appreciate recommendations - consulted interventional radiology s/p gallbladder drainage 11/17 -11/22 S/P Laparoscopic cholecystectomy by Dr Pepper converted to open cholecystectomy patient with severe inflammatory process involving portion of proximal transverse colon just past hepatic flexure Postsurgical anemia Hypotension Blood loss postsurgical ~1200 ml blood . patient received 1 U post surgical. His SBP postsurgical was noted 70s . Patient also received 2L NS bolus. Order 2nd unit of blood as patient is with h/o CAD with CABG. Keep KGB > 9. BP is stable now. Monitor VS closely. Leukocytosis with neutrophilia and monocytosis Liver abscesses - sp cholecystostomy placement - growing Citrobacter and strep . Blood cultures with GPC. ID specialist was consulted. Seen by Dr Lopez appreciate recommendations - cont zosyn dc vancomycin Follow up cultures. cultures - Likely secondary to cholecystitis and liver abscesses - Zosyn 4.5 mg IV every 6 hours - Recheck CBC in a.m.; follow trends - Lactic acid level I.3 - Blood cultures GPC; UA negative Anemia - likely related to GI blood loss - Hemoglobin 11.4 and hematocrit 33.2 on admission, with no recent labs to compare to - Recheck CBC in a.m. - Follow trends - Transfuse if indicated - Continuous cardiac telemetry Acute renal insufficiency likely secondary to dehydration - BUN elevated at 27, creatinine 1.40, and estimated GFR 49 on admission - Recheck BMP in a.m. and follow trends in renal indices - Avoid nephrotoxins DVT prophylaxis - SCDs Discussed Condition With patient, nurse and his family at bedside Problem Qualifiers (1) GI bleeding: Qualified Code: K92.2 - Gastrointestinal hemorrhage, unspecified gastrointestinal hemorrhage type (2) Anemia: Qualified Code: D64.9 - Anemia, unspecified type Hina Hernandez MD Nov 22, 2016 14:27
[2016-11-22 16:52] VITALS: BP 133/58; PULSE 60; RESP 19; TEMP 96.8; O2SAT 98
[2016-11-22] MEDS: ACETAMINOPHEN/HYDROcodone 325 MG/10 MG TAB PO PRN (19:22)
[2016-11-22] MEDS: ATORVASTATIN 40 MG TAB PO SCH (21:34)
[2016-11-22] MEDS: LISINOPRIL 10 MG TAB PO SCH (21:34)
[2016-11-22] MEDS: amLODIPine BESYLATE 5 MG TAB PO SCH (21:34)
[2016-11-22] MEDS: ATENOLOL 25 MG TAB PO SCH (21:34)
[2016-11-22] MEDS: HYDROmorphone HCL PF 1 MG/ML VIAL IV PRN (21:34)
[2016-11-22] MEDS: TAMSULOSIN HCL 0.4 MG CAP PO SCH (21:34)
[2016-11-22] MEDS: SODIUM CHLORIDE 0.9% FLUSH 5 ML FLUSH FLUSH SCH (21:35)
[2016-11-22 21:39] VITALS: BP 140/68; PULSE 70; RESP 22; TEMP 97.3; O2SAT 97
[2016-11-23] VITALS (10 sets, daily range): BP systolic 112–154; BP diastolic 60–70; PULSE 61–69; RESP 16–20; TEMP 95.4–97.7; O2SAT 92–98
[2016-11-23] MEDS: PIPERACIL-TAZO 4.5 GM PREMIX 100 ML IV SCH ×4 (01:03→17:42)
[2016-11-23] MEDS: LACTATED RINGER'S 1000 ML IV SCH (04:45)
[2016-11-23] MEDS: ACETAMINOPHEN/HYDROcodone 325 MG/10 MG TAB PO PRN ×3 (04:49→20:07)
[2016-11-23 05:40] LABS: AUTOMATED NEUTROPHIL # 11.4 TH/MM3 (1.8-7.7); BASOPHIL # 0.1 TH/MM3 (0-0.2); BASOPHIL % 0.5 % (0.0-2.0); EOSINOPHIL % 0.2 % (0.0-4.0); HEMATOCRIT 32.3 % (39.0-51.0); HEMO FLAGS DIFF FINAL; LYMPH % 6.9 % (9.0-44.0); MEAN CELL VOLUME 88.8 FL (80.0-100.0); MEAN CORPUSCULAR HEMOGLOBIN 29.5 PG (27.0-34.0); MEAN CORPUSCULAR HGB CONC 33.2 % (32.0-36.0); MONO % 10.4 % (0.0-8.0); PLATELET COUNT 382 TH/MM3 (150-450); RED BLOOD COUNT 3.63 MIL/MM3 (4.50-5.90); RED CELL DISTRIBUTION WIDTH 14.8 % (11.6-17.2); WHITE BLOOD COUNT 13.9 TH/MM3 (4.0-11.0)
[2016-11-23 05:56] LABS: BICARBONATE 27.9 MEQ/L (21.0-32.0); POTASSIUM 4.1 MEQ/L (3.5-5.1)
[2016-11-23] MEDS: HYDROmorphone HCL PF 1 MG/ML VIAL IV PRN (06:04)
[2016-11-23] MEDS: PANTOPRAZOLE SOD 40 MG DELAYED RELEASE TAB PO SCH (08:47)
--- NOTE | 2016-11-23 08:52 | HHI.PR ---
Subjective Remarks Patient in bed, appears in nad. Says belly is distended, pain is controlled by meds. He did pass gas after surgery. No BM. No nausea or vomiting. No chest pain or sob. Denies fevers or chills. is interrupting me during interview and physical examination with complaints of machines beeping all night and no one came. I discussed with the charge nurse regarding this issues and I told the charge nurse will also come and talk with her. Objective Vitals Vital Signs Date Time Temp Pulse Resp B/P Pulse Ox O2 Delivery O2 Flow Rate FiO2 11/23/16 06:04 18 11/23/16 04:00 95.7 65 20 130/63 94 11/23/16 00:40 18 11/23/16 00:29 97.4 68 20 112/70 96 11/23/16 00:11 98 Nasal Cannula 2.00 11/22/16 21:39 97.3 70 22 140/68 97 11/22/16 16:52 96.8 60 19 133/58 98 11/22/16 16:15 98.1 59 14 112/54 98 Nasal Cannula 2 11/22/16 16:00 98.1 61 14 104/48 98 Nasal Cannula 2 11/22/16 15:45 63 14 92/50 99 Nasal Cannula 2 11/22/16 15:30 59 14 101/50 98 Nasal Cannula 2 11/22/16 15:15 59 14 94/47 98 Nasal Cannula 2 11/22/16 15:00 61 14 107/53 98 Nasal Cannula 4 11/22/16 14:45 62 14 112/55 97 Nasal Cannula 4 11/22/16 14:30 64 14 118/52 96 Nasal Cannula 4 11/22/16 14:15 64 14 137/52 97 Nasal Cannula 4 11/22/16 14:00 64 14 108/51 96 Nasal Cannula 4 11/22/16 13:45 63 14 115/43 96 Nasal Cannula 4 11/22/16 13:30 62 14 103/40 97 Nasal Cannula 4 11/22/16 13:15 64 14 88/39 97 Nasal Cannula 4 11/22/16 13:04 97.7 59 14 89/39 97 Nasal Cannula 4 I/O 11/22/16 11/22/16 11/22/16 11/23/16 11/23/16 11/23/16 07:00 15:00 23:00 07:00 15:00 23:00 Intake Total 0 ml 2300 ml 0 ml 115 ml Output Total 400 ml 1200 ml 710 ml 15 ml Balance -400 ml 1100 ml -710 ml 100 ml Intake Oral 0 ml IV Total 0 ml 115 ml Packed Cells 300 ml Other 2000 ml Output Urine Total 400 ml 650 ml Drainage Total 60 ml 15 ml Estimated Blood Loss 1200 ml # Voids 3 # Bowel Movements 0 Result Diagram: 11/23/16 0436 11/23/16 0436 Imaging Last Impressions Percutaneous Cholangiogram 11/17/16 0000 Signed Impressions: Service Date/Time: Thursday, November 17, 2016 13:41 - CONCLUSION: Uncomplicated percutaneous cholecystostomy as above. Pus obtained from the gallbladder lumen. A sample was sent to microbiology. Allan Thompson Jr., MD Abdomen/Pelvis CT 11/16/16 1612 Signed Impressions: Service Date/Time: Wednesday, November 16, 2016 17:49 - CONCLUSION: Acute emphysematous cholecystitis. Several small abscesses in the adjacent liver. Gafrield Suh MD Objective Remarks GENERAL: This is a pleasant elderly male patient, in no apparent distress. SKIN: No rashes, ecchymoses or lesions. Cool and dry. HEAD: Atraumatic. Normocephalic. EYES: No scleral icterus. No injection or drainage. ENT: Nose without bleeding, purulent drainage. NECK: Trachea midline. No JVD or lymphadenopathy. CARDIOVASCULAR: Regular rate and rhythm without murmurs, gallops, or rubs. RESPIRATORY: Clear to auscultation. Breath sounds equal bilaterally. No wheezes , rales, or rhonchi. GASTROINTESTINAL: Abdomen soft, non-tender, nondistended. No guarding. s/p michael MUSCULOSKELETAL: Extremities without clubbing, cyanosis, or edema. No calf tenderness. NEUROLOGICAL: Awake and alert. Motor and sensory grossly within normal limits. Normal speech. Procedures -11/22 S/P Laparoscopic cholecystectomy by Dr Pepper converted to open cholecystectomy A/P Problem List: (1) GI bleeding ICD Code: K92.2 Status: Acute (2) Acute emphysematous cholecystitis ICD Code: K81.0 Status: Acute (3) Leukocytosis ICD Code: D72.829 Status: Acute (4) Anemia ICD Code: D64.9 Status: Acute (5) Acute renal insufficiency ICD Code: N28.9 Status: Acute Assessment and Plan Mr. Rico is an 81-year-old male with past medical history of coronary artery disease status post CABG, hyperlipidemia, hypertension, and prostate hypertrophy who presented to the [facility] emergency room on 11/16/2016 complaining of dark, tarry stool. Abdomen/pelvis CT with acute emphysematous cholecystitis and several small abscesses in the adjacent liver. He was transferred to the main hospital for intervention at the request of college sports assistant, Dr. Friedman, surgical eval . GI bleeding gross melena noted during rectal examination per ER physician on admission - Consult gastroenterology - Continue Protonix - S/P EGD 11/18 Patient with duodenum ulcer. GI Dr Faust is following. - S/P colonoscopy to cecum 11/19 . Scant diverticulosis. 2 small polyops removed by snarescautery by Dr Faust Acute emphysematous cholecystitis with transaminitis - Consult general surgery, appreciate recommendations - consulted interventional radiology s/p gallbladder drainage 11/17 -11/22 S/P Laparoscopic cholecystectomy by Dr Pepper converted to open cholecystectomy patient with severe inflammatory process involving portion of proximal transverse colon just past hepatic flexure Postsurgical anemia Hypotension Blood loss postsurgical ~1200 ml blood . patient received 1 U post surgical. His SBP postsurgical was noted 70s . Patient also received 2L NS bolus. Order 2nd unit of blood as patient is with h/o CAD with CABG. Keep KGB > 9. BP is stable now. Monitor VS closely. 11/23: BP is better controlled, VSS. HGB is 10.7 stable. Passed gas. Leukocytosis likely reactive after surgery. Monitor for signs of infection. Noted ISHMAEL, start NS at 84 cc.hr. Monitor kidney indices. Will check UA. Leukocytosis with neutrophilia and monocytosis Liver abscesses - sp cholecystostomy placement - growing Citrobacter and strep . Blood cultures with GPC. ID specialist was consulted. Seen by Dr Lopez appreciate recommendations - cont zosyn dc vancomycin Follow up cultures. cultures - Likely secondary to cholecystitis and liver abscesses - Zosyn 4.5 mg IV every 6 hours - Recheck CBC in a.m.; follow trends - Lactic acid level I.3 - Blood cultures GPC; UA negative Anemia - likely related to GI blood loss - Hemoglobin 11.4 and hematocrit 33.2 on admission, with no recent labs to compare to - Recheck CBC in a.m. - Follow trends - Transfuse if indicated - Continuous cardiac telemetry Acute renal insufficiency likely secondary to dehydration - BUN elevated at 27, creatinine 1.40, and estimated GFR 49 on admission - Recheck BMP in a.m. and follow trends in renal indices - Avoid nephrotoxins DVT prophylaxis - SCDs Discussed Condition With patient, nurse and his family at bedside, . Problem Qualifiers (1) GI bleeding: Qualified Code: K92.2 - Gastrointestinal hemorrhage, unspecified gastrointestinal hemorrhage type (2) Anemia: Qualified Code: D64.9 - Anemia, unspecified type Hina Hernandez MD Nov 23, 2016 08:52
[2016-11-23] MEDS: SODIUM CHLORIDE 0.9% FLUSH 5 ML FLUSH FLUSH SCH ×2 (08:55→20:08)
[2016-11-23] MEDS ORDERED: SODIUM CHLOR 0.9% 1000 ML INJ 1,000 ML IV SCH (09:00)
--- NOTE | 2016-11-23 11:32 | HHI.PR ---
Subjective Subjective Notes Resting in bed at bedside Objective Vitals/I&O Vital Signs Date Time Temp Pulse Resp B/P Pulse Ox O2 Delivery O2 Flow Rate FiO2 11/23/16 08:46 20 11/23/16 08:30 95.9 61 128/60 93 11/23/16 00:11 Nasal Cannula 2.00 11/22/16 08:29 21 Labs Laboratory Tests Test 11/22/16 11/22/16 11/22/16 11/23/16 11:43 11:58 13:29 04:36 Blood Type AB POSITIVE Antibody Screen NEGATIVE Crossmatch Leukocyte-Reduced Red Blood Cells Blood Bank Comment Blood Gas Puncture Site IN OR Blood Gas Patient Temperature 98.6 Blood Gas HCO3 23 Blood Gas Base Excess -1.4 Blood Gas Oxygen Saturation 97 Arterial Blood pH 7.39 Arterial Blood Partial 39 Pressure CO2 Arterial Blood Partial 167 Pressure O2 Arterial Blood Oxygen Content 16.8 Arterial Blood 1.5 Carboxyhemoglobin Arterial Blood Methemoglobin 0.9 Blood Gas Hemoglobin 12.1 Oxygen Delivery Device VENTILATOR Blood Gas Ventilator Setting IN OR Blood Gas Inspired Oxygen 50 Hemoglobin 7.4 10.7 Hematocrit 22.1 32.3 White Blood Count 13.9 Red Blood Count 3.63 Mean Corpuscular Volume 88.8 Mean Corpuscular Hemoglobin 29.5 Mean Corpuscular Hemoglobin 33.2 Concent Red Cell Distribution Width 14.8 Platelet Count 382 Mean Platelet Volume 7.1 Neutrophils (%) (Auto) 82.0 Lymphocytes (%) (Auto) 6.9 Monocytes (%) (Auto) 10.4 Eosinophils (%) (Auto) 0.2 Basophils (%) (Auto) 0.5 Neutrophils # (Auto) 11.4 Lymphocytes # (Auto) 1.0 Monocytes # (Auto) 1.5 Eosinophils # (Auto) 0.0 Basophils # (Auto) 0.1 CBC Comment DIFF FINAL Differential Comment Sodium Level 143 Potassium Level 4.1 Chloride Level 106 Carbon Dioxide Level 27.9 Anion Gap 9 Blood Urea Nitrogen 10 Creatinine 1.32 Estimat Glomerular Filtration 52 Rate Random Glucose 134 Calcium Level 8.2 Radiology Last Impressions Percutaneous Cholangiogram 11/17/16 0000 Signed Impressions: Service Date/Time: Thursday, November 17, 2016 13:41 - CONCLUSION: Uncomplicated percutaneous cholecystostomy as above. Pus obtained from the gallbladder lumen. A sample was sent to microbiology. Allan Thompson Jr., MD Abdomen/Pelvis CT 11/16/16 8592 Signed Impressions: Service Date/Time: Wednesday, November 16, 2016 17:49 - CONCLUSION: Acute emphysematous cholecystitis. Several small abscesses in the adjacent liver. Garfield Suh MD Cardiovascular: Regular Lungs: Clear Abdomen: Other (RUQ incision----steri strips in place; mild tenderness to RUQ; distended ) Extremities: No edema A/P Problem List: (1) Acute emphysematous cholecystitis (2) Anemia (3) GI bleeding (4) Leukocytosis (5) Acute renal insufficiency Assessment and Plan 81 year old male with emphysematous cholecystitis and LGIB -POD1 open cholecystectomy -Continue clears -Continue antibiotics -OOB and mobilize -Wean O2 Attending Note - Dr. Pepper Still somewhat weak Labs noted DANITA output serosanguinous Home in next day or so. Await pathology. The exam, history, and the medical decision-making described in the above note were completed with the assistance of the mid-level provider. I reviewed and agree with the findings presented. I attest that I had a [id number] encounter with the patient on the same day, and personally performed and documented my assessment and findings in the medical record. Problem Qualifiers (1) Anemia: Qualified Code: D64.9 - Anemia, unspecified type (2) GI bleeding: Qualified Code: K92.2 - Gastrointestinal hemorrhage, unspecified gastrointestinal hemorrhage type Pili Delgadillo Nov 23, 2016 11:32 Fabio Pepper MD Nov 24, 2016 18:08
[2016-11-23 12:39] LABS: BACTERIA, URINE RARE /hpf; BLOOD, URINE TRACE (NEG); GLUCOSE,URINE NEG (NEG); KETONE, URINE NEG (NEG); NITRITE,URINE NEG (NEG); PH, URINE 5.5 (5.0-8.5); URIC ACID CRYSTALS, URINE MANY /hpf; URINE COLOR YELLOW (YELLW/STRAW)
[2016-11-23 12:44] LABS: COMMENT (UR) CULT NOT INDICATED; CULTURE IF INDICATED CULT NOT INDICATED
[2016-11-23] MEDS: TAMSULOSIN HCL 0.4 MG CAP PO SCH (20:06)
[2016-11-23] MEDS: LISINOPRIL 10 MG TAB PO SCH (20:07)
[2016-11-23] MEDS: ATENOLOL 25 MG TAB PO SCH (20:07)
[2016-11-23] MEDS: amLODIPine BESYLATE 5 MG TAB PO SCH (20:07)
[2016-11-23] MEDS: ATORVASTATIN 40 MG TAB PO SCH (20:07)
[2016-11-24] VITALS (7 sets, daily range): BP systolic 105–131; BP diastolic 57–85; PULSE 62–99; RESP 16–20; TEMP 96.8–98.6; O2SAT 91–98
[2016-11-24] MEDS: PIPERACIL-TAZO 4.5 GM PREMIX 100 ML IV SCH ×2 (00:45→06:17)
[2016-11-24 05:40] LABS: AUTOMATED NEUTROPHIL # 9.8 TH/MM3 (1.8-7.7); BASOPHIL % 0.4 % (0.0-2.0); EOSINOPHIL # 0.1 TH/MM3 (0-0.4); EOSINOPHIL % 1.3 % (0.0-4.0); HEMO FLAGS DIFF FINAL; LYMPH % 5.3 % (9.0-44.0); LYMPHOCYTE # 0.6 TH/MM3 (1.0-4.8); MEAN CELL VOLUME 88.3 FL (80.0-100.0); MEAN CORPUSCULAR HEMOGLOBIN 29.3 PG (27.0-34.0); MEAN CORPUSCULAR HGB CONC 33.2 % (32.0-36.0); MONO % 8.8 % (0.0-8.0); NEUT % 84.2 % (16.0-70.0); PLATELET COUNT 372 TH/MM3 (150-450); RED BLOOD COUNT 3.29 MIL/MM3 (4.50-5.90); RED CELL DISTRIBUTION WIDTH 14.5 % (11.6-17.2); WHITE BLOOD COUNT 11.6 TH/MM3 (4.0-11.0)
[2016-11-24 06:08] LABS: BICARBONATE 28.5 MEQ/L (21.0-32.0); MAGNESIUM 2.1 MG/DL (1.5-2.5); POTASSIUM 3.8 MEQ/L (3.5-5.1)
[2016-11-24] MEDS: ACETAMINOPHEN/HYDROcodone 325 MG/10 MG TAB PO PRN ×3 (06:18→22:48)
[2016-11-24] MEDS ORDERED: SODIUM CHLOR 0.9% 1000 ML INJ 1,000 ML IV SCH (07:45)
--- NOTE | 2016-11-24 08:25 | HHI.FF ---
Face to Face Verification Diagnosis: (1) Acute emphysematous cholecystitis (2) GI bleeding Physical Therapy Order: Evaluate and Treat, Improve ambulation, Strength and gait training Instructions: No restrictions Home Health Nursing Order: Wound care and dressing changes Instructions: Monitor RUQ incision----Steri strips in place; Dry dressing on DANITA site I have seen patient Jordan Rico on 11/24/16. My clinical findings support the need for the requested home health care services because: Limited ability to care for self High risk of falls I certify that my clinical findings support that this patient is homebound because: Unsteady gait/balance Pili Delgadillo Nov 24, 2016 08:25
[2016-11-24] MEDS ORDERED: WALKER WHEELS/F1 MIS (08:26)
[2016-11-24] MEDS: SODIUM CHLORIDE 0.9% FLUSH 5 ML FLUSH FLUSH SCH ×2 (08:34→22:49)
[2016-11-24] MEDS: PANTOPRAZOLE SOD 40 MG DELAYED RELEASE TAB PO SCH (08:34)
[2016-11-24] MEDS ORDERED: cefTRIAXone INJ 1,000 MG in SODIUM CHLORIDE 0.9% INJ 100 ML IV SCH (09:00)
[2016-11-24] MEDS: LEVOFLOXACIN 750 MG TAB PO SCH (10:49)
--- NOTE | 2016-11-24 12:10 | HHI.PR ---
Subjective Remarks patient in bed. feels tired. No feevr or chills overnight. Pain is controlled by mrds. Had a normal BM in the morning. No n/v/d/c. Objective Vitals Vital Signs Date Time Temp Pulse Resp B/P Pulse Ox O2 Delivery O2 Flow Rate FiO2 11/24/16 09:52 94 Nasal Cannula 2.00 11/24/16 08:00 98.0 99 16 105/85 95 11/24/16 04:00 97.2 81 17 119/72 95 11/24/16 00:00 96.8 62 17 131/62 98 11/23/16 23:36 16 11/23/16 20:06 69 11/23/16 20:00 95.4 69 18 154/68 96 11/23/16 17:46 92 Nasal Cannula 2.00 11/23/16 16:00 97.7 67 16 135/64 94 11/23/16 14:17 92 Nasal Cannula 2.00 11/23/16 12:30 95.7 62 16 133/61 97 I/O 11/23/16 11/23/16 11/23/16 11/24/16 11/24/16 11/24/16 07:00 15:00 23:00 07:00 15:00 23:00 Intake Total 115 ml 867 ml 1151 ml 346 ml 362 ml Output Total 15 ml 420 ml 235 ml 305 ml Balance 100 ml 447 ml 916 ml 41 ml 362 ml Intake Oral 425 ml 480 ml 240 ml IV Total 115 ml 442 ml 671 ml 106 ml 362 ml Output Urine Total 400 ml 225 ml 300 ml Drainage Total 15 ml 20 ml 10 ml 5 ml Bladder Scan Volume Amount 6 ml # Voids 3 # Bowel Movements 0 1 Result Diagram: 11/24/16 0524 11/24/16 0524 Imaging Last Impressions Percutaneous Cholangiogram 11/17/16 0000 Signed Impressions: Service Date/Time: Thursday, November 17, 2016 13:41 - CONCLUSION: Uncomplicated percutaneous cholecystostomy as above. Pus obtained from the gallbladder lumen. A sample was sent to microbiology. Allan Thompson Jr., MD Abdomen/Pelvis CT 11/16/16 1612 Signed Impressions: Service Date/Time: Wednesday, November 16, 2016 17:49 - CONCLUSION: Acute emphysematous cholecystitis. Several small abscesses in the adjacent liver. Garfield Suh MD Objective Remarks GENERAL: This is a pleasant elderly male patient, in no apparent distress. SKIN: No rashes, ecchymoses or lesions. Cool and dry. HEAD: Atraumatic. Normocephalic. EYES: No scleral icterus. No injection or drainage. ENT: Nose without bleeding, purulent drainage. NECK: Trachea midline. No JVD or lymphadenopathy. CARDIOVASCULAR: Regular rate and rhythm without murmurs, gallops, or rubs. RESPIRATORY: Clear to auscultation. Breath sounds equal bilaterally. No wheezes , rales, or rhonchi. GASTROINTESTINAL: Abdomen soft, non-tender, nondistended. No guarding. s/p michael MUSCULOSKELETAL: Extremities without clubbing, cyanosis, or edema. No calf tenderness. NEUROLOGICAL: Awake and alert. Motor and sensory grossly within normal limits. Normal speech. Procedures -11/22 S/P Laparoscopic cholecystectomy by Dr Pepper converted to open cholecystectomy A/P Problem List: (1) GI bleeding ICD Code: K92.2 Status: Acute (2) Acute emphysematous cholecystitis ICD Code: K81.0 Status: Acute (3) Leukocytosis ICD Code: D72.829 Status: Acute (4) Anemia ICD Code: D64.9 Status: Acute (5) Acute renal insufficiency ICD Code: N28.9 Status: Acute Assessment and Plan Mr. Rico is an 81-year-old male with past medical history of coronary artery disease status post CABG, hyperlipidemia, hypertension, and prostate hypertrophy who presented to the [place] emergency room on 11/16/2016 complaining of dark, tarry stool. Abdomen/pelvis CT with acute emphysematous cholecystitis and several small abscesses in the adjacent liver. He was transferred to the [facility] for intervention at the request of planogrammer, Dr. Friedman, surgical eval . GI bleeding gross melena noted during rectal examination per ER physician on admission - Consult gastroenterology - Continue Protonix - S/P EGD 11/18 Patient with duodenum ulcer. GI Dr Faust is following. - S/P colonoscopy to cecum 11/19 . Scant diverticulosis. 2 small polyops removed by snarescautery by Dr Faust Acute emphysematous cholecystitis with transaminitis - Consult general surgery, appreciate recommendations - consulted interventional radiology s/p gallbladder drainage 11/17 -11/22 S/P Laparoscopic cholecystectomy by Dr Pepper converted to open cholecystectomy patient with severe inflammatory process involving portion of proximal transverse colon just past hepatic flexure Postsurgical anemia Hypotension Blood loss postsurgical ~1200 ml blood . patient received 1 U post surgical. His SBP postsurgical was noted 70s . Patient also received 2L NS bolus. Order 2nd unit of blood as patient is with h/o CAD with CABG. Keep KGB > 9. BP is stable now. Monitor VS closely. 11/23: BP is better controlled, VSS. HGB is 10.7 stable. Passed gas. Leukocytosis likely reactive after surgery. Monitor for signs of infection. Noted ISHMAEL, start NS at 84 cc.hr. Monitor kidney indices. Will check UA. 11/24> With ISHMAEL, continue 0.9 NS monitor kidney indices. Will do a bladder US and kidney US Leukocytosis with neutrophilia and monocytosis Liver abscesses - sp cholecystostomy placement - growing Citrobacter and strep . Blood cultures with GPC. ID specialist was consulted. Seen by Dr Lopez appreciate recommendations - cont zosyn dc vancomycin Follow up cultures. cultures - Likely secondary to cholecystitis and liver abscesses - Zosyn 4.5 mg IV every 6 hours - Recheck CBC in a.m.; follow trends - Lactic acid level I.3 - Blood cultures GPC; UA negative Anemia - likely related to GI blood loss - Hemoglobin 11.4 and hematocrit 33.2 on admission, with no recent labs to compare to - Recheck CBC in a.m. - Follow trends - Transfuse if indicated - Continuous cardiac telemetry Acute renal insufficiency likely secondary to dehydration - BUN elevated at 27, creatinine 1.40, and estimated GFR 49 on admission - Recheck BMP in a.m. and follow trends in renal indices - Avoid nephrotoxins DVT prophylaxis - SCDs Discussed Condition With patient, nurse and his family at bedside, . Problem Qualifiers (1) GI bleeding: Qualified Code: K92.2 - Gastrointestinal hemorrhage, unspecified gastrointestinal hemorrhage type (2) Anemia: Qualified Code: D64.9 - Anemia, unspecified type Hina Hernandez MD Nov 24, 2016 12:10
--- NOTE | 2016-11-24 13:15 | HHI.PR ---
Subjective Subjective Notes Resting in bed Feels weak still at bedside Objective Vitals/I&O Vital Signs Date Time Temp Pulse Resp B/P Pulse Ox O2 Delivery O2 Flow Rate FiO2 11/24/16 09:52 94 Nasal Cannula 2.00 11/24/16 08:00 98.0 99 16 105/85 11/22/16 08:29 21 Labs Laboratory Tests Test 11/24/16 05:24 White Blood Count 11.6 Red Blood Count 3.29 Hemoglobin 9.6 Hematocrit 29.0 Mean Corpuscular Volume 88.3 Mean Corpuscular Hemoglobin 29.3 Mean Corpuscular Hemoglobin 33.2 Concent Red Cell Distribution Width 14.5 Platelet Count 372 Mean Platelet Volume 6.7 Neutrophils (%) (Auto) 84.2 Lymphocytes (%) (Auto) 5.3 Monocytes (%) (Auto) 8.8 Eosinophils (%) (Auto) 1.3 Basophils (%) (Auto) 0.4 Neutrophils # (Auto) 9.8 Lymphocytes # (Auto) 0.6 Monocytes # (Auto) 1.0 Eosinophils # (Auto) 0.1 Basophils # (Auto) 0.0 CBC Comment DIFF FINAL Differential Comment Sodium Level 139 Potassium Level 3.8 Chloride Level 103 Carbon Dioxide Level 28.5 Anion Gap 8 Blood Urea Nitrogen 9 Creatinine 1.46 Estimat Glomerular Filtration 46 Rate Random Glucose 147 Calcium Level 8.1 Magnesium Level 2.1 Radiology Last Impressions Percutaneous Cholangiogram 11/17/16 0000 Signed Impressions: Service Date/Time: Thursday, November 17, 2016 13:41 - CONCLUSION: Uncomplicated percutaneous cholecystostomy as above. Pus obtained from the gallbladder lumen. A sample was sent to microbiology. Allan Thompson Jr., MD Abdomen/Pelvis CT 11/16/16 1612 Signed Impressions: Service Date/Time: Wednesday, November 16, 2016 17:49 - CONCLUSION: Acute emphysematous cholecystitis. Several small abscesses in the adjacent liver. Garfield Suh MD Cardiovascular: Regular Lungs: Clear Abdomen: Other (RUQ incision---steri strips in place; c/d/i; DANITA x1 with SS drainage ) Extremities: No edema A/P Problem List: (1) Acute emphysematous cholecystitis (2) Anemia (3) GI bleeding (4) Leukocytosis (5) Acute renal insufficiency Assessment and Plan 81 year old male with emphysematous cholecystitis and LGIB -POD2 open cholecystectomy -Tolerating regular diet -Transition to PO antibiotics -OOB and mobilize -Case management consult for HHC and PT -Plan for DC tomorrow Attending Note - Dr. Pepper Abdomen benign; steristrips intact. DANITA output serosanguinous; decreasing rapidly. Tolerating some food. Pathology reviewed with patient and and copy provided to them. May need to go to rehab before D/C home The exam, history, and the medical decision-making described in the above note were completed with the assistance of the mid-level provider. I reviewed and agree with the findings presented. I attest that I had a [id number] encounter with the patient on the same day, and personally performed and documented my assessment and findings in the medical record. Problem Qualifiers (1) Anemia: Qualified Code: D64.9 - Anemia, unspecified type (2) GI bleeding: Qualified Code: K92.2 - Gastrointestinal hemorrhage, unspecified gastrointestinal hemorrhage type Pili Delgadillo Nov 24, 2016 13:15 Fabio Pepper MD Nov 24, 2016 18:07
--- NOTE | 2016-11-24 15:28 | HHI.IDPN ---
Subjective Subjective Remarks sp open cholecystectomy Creatinine up, UIOP droppped No residuals on bladder scan Antibiotics levaquine Allergies: Coded Allergies: No Known Allergies (Verified , 11/16/16) Objective . Vital Signs Date Time Temp Pulse Resp B/P Pulse Ox O2 Delivery O2 Flow Rate FiO2 11/24/16 12:00 97.4 62 19 119/57 92 11/24/16 09:52 94 Nasal Cannula 2.00 11/24/16 08:00 98.0 99 16 105/85 95 11/24/16 04:00 97.2 81 17 119/72 95 11/24/16 00:00 96.8 62 17 131/62 98 11/23/16 23:36 16 11/23/16 20:06 69 11/23/16 20:00 95.4 69 18 154/68 96 11/23/16 17:46 92 Nasal Cannula 2.00 11/23/16 16:00 97.7 67 16 135/64 94 11/23/16 11/23/16 11/24/16 15:00 23:00 07:00 Intake Total 867 ml 1151 ml 346 ml Output Total 420 ml 235 ml 305 ml Balance 447 ml 916 ml 41 ml Intake Oral 425 ml 480 ml 240 ml IV Total 442 ml 671 ml 106 ml Output Urine Total 400 ml 225 ml 300 ml Drainage Total 20 ml 10 ml 5 ml Bladder Scan Volume Amount 6 ml # Bowel Movements 0 1 . Laboratory Tests Test 11/23/16 11/24/16 04:36 05:24 White Blood Count 13.9 TH/MM3 11.6 TH/MM3 Red Blood Count 3.63 MIL/MM3 3.29 MIL/MM3 Hemoglobin 10.7 GM/DL 9.6 GM/DL Hematocrit 32.3 % 29.0 % Mean Corpuscular Volume 88.8 FL 88.3 FL Mean Corpuscular Hemoglobin 29.5 PG 29.3 PG Mean Corpuscular Hemoglobin 33.2 % 33.2 % Concent Red Cell Distribution Width 14.8 % 14.5 % Platelet Count 382 TH/MM3 372 TH/MM3 Mean Platelet Volume 7.1 FL 6.7 FL Neutrophils (%) (Auto) 82.0 % 84.2 % Lymphocytes (%) (Auto) 6.9 % 5.3 % Monocytes (%) (Auto) 10.4 % 8.8 % Eosinophils (%) (Auto) 0.2 % 1.3 % Basophils (%) (Auto) 0.5 % 0.4 % Neutrophils # (Auto) 11.4 TH/MM3 9.8 TH/MM3 Lymphocytes # (Auto) 1.0 TH/MM3 0.6 TH/MM3 Monocytes # (Auto) 1.5 TH/MM3 1.0 TH/MM3 Eosinophils # (Auto) 0.0 TH/MM3 0.1 TH/MM3 Basophils # (Auto) 0.1 TH/MM3 0.0 TH/MM3 CBC Comment DIFF FINAL DIFF FINAL Differential Comment Laboratory Tests Test 11/23/16 11/24/16 04:36 05:24 Sodium Level 143 MEQ/L 139 MEQ/L Potassium Level 4.1 MEQ/L 3.8 MEQ/L Chloride Level 106 MEQ/L 103 MEQ/L Carbon Dioxide Level 27.9 MEQ/L 28.5 MEQ/L Anion Gap 9 MEQ/L 8 MEQ/L Blood Urea Nitrogen 10 MG/DL 9 MG/DL Creatinine 1.32 MG/DL 1.46 MG/DL Estimat Glomerular Filtration 52 ML/MIN 46 ML/MIN Rate Random Glucose 134 MG/DL 147 MG/DL Calcium Level 8.2 MG/DL 8.1 MG/DL Magnesium Level 2.1 MG/DL Imaging [place] Last Impressions Percutaneous Cholangiogram 11/17/16 0000 Signed Impressions: Service Date/Time: Thursday, November 17, 2016 13:41 - CONCLUSION: Uncomplicated percutaneous cholecystostomy as above. Pus obtained from the gallbladder lumen. A sample was sent to microbiology. Allan Thompson Jr., MD Abdomen/Pelvis CT 11/16/16 1612 Signed Impressions: Service Date/Time: Wednesday, November 16, 2016 17:49 - CONCLUSION: Acute emphysematous cholecystitis. Several small abscesses in the adjacent liver. Garfield Suh MD Physical Exam CONSTITUTIONAL/GENERAL: This is an adequately nourished patient, in no apparent distress. TUBES/LINES/DRAINS: DANITA drain in place RUQ with serosang dc SKIN: No jaundice, rashes, or lesions. Ecchymoses on upper extremities. No wounds seen anteriorly. Skin temperature appropriate. Not diaphoretic. EYES: Pupils equal and round and reactive. Extraocular motions intact. No scleral icterus. No injection or drainage. Fundi not examined. CARDIOVASCULAR: Regular rate and rhythm without murmurs, gallops, or rubs. No JVD. Peripheral pulses symmetric. RESPIRATORY/CHEST: Symmetric, unlabored respirations. Clear to auscultation. Breath sounds equal bilaterally. No wheezes, rales, or rhonchi. GASTROINTESTINAL: Abdomen soft, non-tender, nondistended. No hepato-splenomegaly, or palpable masses. No guarding. Bowel sounds present. MUSCULOSKELETAL: Extremities without clubbing, cyanosis, No edema. NEUROLOGICAL: Awake and alert. Motor and sensory grossly within normal limits. Follows commands. Cognitively sharp. Moves all extremities. PSYCHIATRIC: calm cooperative Assessment & Plan Remarks Acute acalculous emphysematous cholecystitis, - sp cholecystectomy, open - growing polimicrobial rodrigo including anaerobs Low grade bacteremia, anaerobica strep ARF - dc zosyn -cipro + flagyl (or levaquine + flagyl) - chk urine eso dw Dr Mary you @ b/s Kayleen Saenz MD Nov 24, 2016 15:28
--- NOTE | 2016-11-24 16:24 | RADRPT ---
EXAM DATE/TIME: 11/24/2016 15:03 [facility] COMPARISON: No previous studies available for comparison. INDICATIONS : Abnormal labs. MEDICAL HISTORY : Hypertension. CAD. Hyperlipidemia. Prostate hypertrophy. SURGICAL HISTORY : Cholecystectomy. CABG. ENCOUNTER: Initial ACUITY: 1 day PAIN SCORE: 5/10 LOCATION: Bilateral flank MEASUREMENTS: RIGHT KIDNEY: 12.6 x 6.2 x 6.2 cm LEFT KIDNEY: 14.0 x 7.6 x 6.0 cm FINDINGS: Exam is limited secondary to patient's body habitus RIGHT KIDNEY: Renal cortex is normal in thickness and echotexture. No hydronephrosis, stone, or mass. LEFT KIDNEY: Renal cortex is normal in thickness and echotexture. No hydronephrosis, stone, or mass. BLADDER: Within normal limits given the degree of distension. CONCLUSION: 1. Limited study but kidneys appear unremarkable. Luis Eduardo Denise MD on November 24, 2016 at 16:22 Board Certified Radiologist. This report was verified electronically.
[2016-11-24] MEDS: metroNIDAZOLE 500 MG TAB PO SCH ×2 (18:20→22:48)
[2016-11-24] MEDS: LISINOPRIL 10 MG TAB PO SCH (22:48)
[2016-11-24] MEDS: ATENOLOL 25 MG TAB PO SCH (22:48)
[2016-11-24] MEDS: amLODIPine BESYLATE 5 MG TAB PO SCH (22:48)
[2016-11-24] MEDS: ATORVASTATIN 40 MG TAB PO SCH (22:48)
[2016-11-24] MEDS: TAMSULOSIN HCL 0.4 MG CAP PO SCH (22:48)
[2016-11-25] VITALS: BP 120/68; PULSE 72; RESP 18; TEMP 98.2; O2SAT 96
[2016-11-25 04:00] VITALS: BP 126/72; PULSE 80; RESP 20; TEMP 97.4; O2SAT 95
[2016-11-25] MEDS: metroNIDAZOLE 500 MG TAB PO SCH ×2 (05:45→12:30)
[2016-11-25 06:29] LABS: AUTOMATED NEUTROPHIL # 6.4 TH/MM3 (1.8-7.7); BASOPHIL # 0.1 TH/MM3 (0-0.2); BASOPHIL % 0.9 % (0.0-2.0); EOSINOPHIL # 0.2 TH/MM3 (0-0.4); EOSINOPHIL % 2.5 % (0.0-4.0); HEMATOCRIT 27.6 % (39.0-51.0); HEMO FLAGS DIFF FINAL; MEAN CELL VOLUME 87.8 FL (80.0-100.0); MEAN CORPUSCULAR HEMOGLOBIN 30.2 PG (27.0-34.0); MEAN CORPUSCULAR HGB CONC 34.4 % (32.0-36.0); MONO % 10.2 % (0.0-8.0); NEUT % 74.4 % (16.0-70.0); PLATELET COUNT 362 TH/MM3 (150-450); RED BLOOD COUNT 3.15 MIL/MM3 (4.50-5.90); RED CELL DISTRIBUTION WIDTH 14.4 % (11.6-17.2); WHITE BLOOD COUNT 8.6 TH/MM3 (4.0-11.0)
[2016-11-25 07:04] LABS: ALKALINE PHOSPHATASE 60 U/L (45-117); ALT (GPT) 41 U/L (12-78); TOTAL BILIRUBIN ADULT 0.4 MG/DL (0.2-1.0)
[2016-11-25 07:07] LABS: ANION GAP 10 MEQ/L (5-15); AST (GOT) 34 U/L (15-37); BICARBONATE 26.7 MEQ/L (21.0-32.0); BLOOD UREA NITROGEN 8 MG/DL (7-18); CHLORIDE 105 MEQ/L (98-107); GLOMERULAR FILTRATION RATE 59 ML/MIN (>89); POTASSIUM 3.5 MEQ/L (3.5-5.1); SODIUM (NA) 142 MEQ/L (136-145)
[2016-11-25 08:00] VITALS: BP 153/67; PULSE 67; RESP 16; TEMP 97.3; O2SAT 97
[2016-11-25] MEDS ORDERED: LEVA750T PO (08:38)
[2016-11-25] MEDS ORDERED: METR-1 PO (08:38)
--- NOTE | 2016-11-25 08:40 | HHI.PR ---
Subjective Subjective Notes Resting in bed Agrees that short term rehab is best for DC plans at bedside---plans to visit a few area SNFs Objective Vitals/I&O Vital Signs Date Time Temp Pulse Resp B/P Pulse Ox O2 Delivery O2 Flow Rate FiO2 11/25/16 08:00 97.3 67 16 153/67 97 11/24/16 09:52 Nasal Cannula 2.00 11/22/16 08:29 21 Labs Laboratory Tests Test 11/24/16 11/25/16 15:00 04:44 Urine Eosinophils NONE SEEN White Blood Count 8.6 Red Blood Count 3.15 Hemoglobin 9.5 Hematocrit 27.6 Mean Corpuscular Volume 87.8 Mean Corpuscular Hemoglobin 30.2 Mean Corpuscular Hemoglobin 34.4 Concent Red Cell Distribution Width 14.4 Platelet Count 362 Mean Platelet Volume 7.0 Neutrophils (%) (Auto) 74.4 Lymphocytes (%) (Auto) 12.0 Monocytes (%) (Auto) 10.2 Eosinophils (%) (Auto) 2.5 Basophils (%) (Auto) 0.9 Neutrophils # (Auto) 6.4 Lymphocytes # (Auto) 1.0 Monocytes # (Auto) 0.9 Eosinophils # (Auto) 0.2 Basophils # (Auto) 0.1 CBC Comment DIFF FINAL Differential Comment Sodium Level 142 Potassium Level 3.5 Chloride Level 105 Carbon Dioxide Level 26.7 Anion Gap 10 Blood Urea Nitrogen 8 Creatinine 1.19 Estimat Glomerular Filtration 59 Rate Random Glucose 125 Calcium Level 8.2 Total Bilirubin 0.4 Aspartate Amino Transf 34 (AST/SGOT) Alanine Aminotransferase 41 (ALT/SGPT) Alkaline Phosphatase 60 Total Protein 6.1 Albumin 1.8 Radiology Last Impressions Percutaneous Cholangiogram 11/17/16 0000 Signed Impressions: Service Date/Time: Thursday, November 17, 2016 13:41 - CONCLUSION: Uncomplicated percutaneous cholecystostomy as above. Pus obtained from the gallbladder lumen. A sample was sent to microbiology. Allan Thompson Jr., MD Abdomen/Pelvis CT 11/16/16 1612 Signed Impressions: Service Date/Time: Wednesday, November 16, 2016 17:49 - CONCLUSION: Acute emphysematous cholecystitis. Several small abscesses in the adjacent liver. Garfield Suh MD Cardiovascular: Regular Lungs: Clear Abdomen: Other (RUQ incision----steri strips in place; DANITA drain removed--- dressing applied ) Extremities: No edema A/P Problem List: (1) Acute emphysematous cholecystitis (2) Anemia (3) GI bleeding (4) Leukocytosis (5) Acute renal insufficiency Assessment and Plan 81 year old male with emphysematous cholecystitis and LGIB -POD3 open cholecystectomy -Tolerating regular diet -Transition to PO antibiotics ---Levaquin and Flagyl -OOB and mobilize -Case management consult for rehab placement -GS clear for DC -Antibiotic rx on chart -Follow up with Dr. Pepper in about 1 week Attending Note - Dr. Pepper Steristrips dry and intact No fevers; tolerating diet fair. To Rehab, then home likely next week. The exam, history, and the medical decision-making described in the above note were completed with the assistance of the mid-level provider. I reviewed and agree with the findings presented. I attest that I had a [id number] encounter with the patient on the same day, and personally performed and documented my assessment and findings in the medical record. Problem Qualifiers (1) Anemia: Qualified Code: D64.9 - Anemia, unspecified type (2) GI bleeding: Qualified Code: K92.2 - Gastrointestinal hemorrhage, unspecified gastrointestinal hemorrhage type Pili Delgadillo Nov 25, 2016 08:40 Fabio Pepper MD Nov 27, 2016 20:20
[2016-11-25] MEDS: SODIUM CHLORIDE 0.9% FLUSH 5 ML FLUSH FLUSH SCH (09:33)
[2016-11-25] MEDS: LEVOFLOXACIN 750 MG TAB PO SCH (09:33)
[2016-11-25] MEDS: PANTOPRAZOLE SOD 40 MG DELAYED RELEASE TAB PO SCH (09:33)
[2016-11-25] MEDS ORDERED: ACET500T3 PO (11:09)
[2016-11-25] MEDS ORDERED: HYDR-3516 PO (11:09)
--- NOTE | 2016-11-25 11:10 | HHI.DCPOC ---
Discharge Care Plan Diagnosis: (1) Anemia (2) GI bleeding (3) Acute renal insufficiency (4) Leukocytosis (5) Acute emphysematous cholecystitis Goals to Promote Your Health * To prevent worsening of your condition and complications * To maintain your health at the optimal level Directions to Meet Your Goals Take your medications as prescribed Follow your dietary instruction Follow activity as directed Keep your appointments as scheduled Take your immunizations and boosters as scheduled If your symptoms worsen call your PCP, if no PCP go to Urgent Care Center or Emergency Room Smoking is Dangerous to Your Health. Avoid second hand smoke Call the 24-hour hour crisis hotline for domestic abuse at Gumaro Cordero MD Nov 25, 2016 11:10
--- NOTE | 2016-11-25 11:14 | HHI.PR ---
Subjective Remarks Follow-up cholecystitis, GI bleed. The patient states that he feels good today. Denies chest pain, dyspnea. Abdominal pain is improving. Objective Vitals Vital Signs Date Time Temp Pulse Resp B/P Pulse Ox O2 Delivery O2 Flow Rate FiO2 11/25/16 08:00 97.3 67 16 153/67 97 11/25/16 04:00 97.4 80 20 126/72 95 11/25/16 00:00 98.2 72 18 120/68 96 11/24/16 20:00 98.6 74 20 118/64 94 11/24/16 16:00 97.9 64 19 118/58 91 11/24/16 12:00 97.4 62 19 119/57 92 I/O 11/24/16 11/24/16 11/24/16 11/25/16 11/25/16 11/25/16 07:00 15:00 23:00 07:00 15:00 23:00 Intake Total 346 ml 1147 ml 480 ml 220 ml Output Total 305 ml 600 ml 600 ml 460 ml Balance 41 ml 547 ml -120 ml -240 ml Intake Oral 240 ml 785 ml 480 ml 220 ml IV Total 106 ml 362 ml 0 ml Output Urine Total 300 ml 600 ml 600 ml 450 ml Drainage Total 5 ml 0 ml 10 ml Bladder Scan Volume Amount 23 ml # Bowel Movements 1 0 0 0 Result Diagram: 11/25/16 0444 11/25/16 0444 Imaging Last Impressions Renal Ultrasound 11/24/16 0000 Signed Impressions: Service Date/Time: Thursday, November 24, 2016 15:03 - CONCLUSION: 1. Limited study but kidneys appear unremarkable. Luis Eduardo Denise MD Percutaneous Cholangiogram 11/17/16 0000 Signed Impressions: Service Date/Time: Thursday, November 17, 2016 13:41 - CONCLUSION: Uncomplicated percutaneous cholecystostomy as above. Pus obtained from the gallbladder lumen. A sample was sent to microbiology. Allan Thompson Jr., MD Abdomen/Pelvis CT 11/16/16 1612 Signed Impressions: Service Date/Time: Wednesday, November 16, 2016 17:49 - CONCLUSION: Acute emphysematous cholecystitis. Several small abscesses in the adjacent liver. Garfield Suh MD Objective Remarks General: No acute distress. Heart: Regular rate and rhythm. No murmur. Lungs: Clear to auscultation bilaterally. No wheezes, rales, or rhonchi. Breathing is nonlabored. Abdomen: Soft, nontender, mildly distended. Surgical wounds are healing. Extremities: No lower extremity edema. Psych: Alert and oriented. Procedures -11/22 S/P Laparoscopic cholecystectomy by Dr Pepper converted to open cholecystectomy Urinary Catheter: No Vascular Central Line Catheter: No A/P Problem List: (1) GI bleeding ICD Code: K92.2 Status: Acute (2) Acute emphysematous cholecystitis ICD Code: K81.0 Status: Acute (3) Leukocytosis ICD Code: D72.829 Status: Acute (4) Anemia ICD Code: D64.9 Status: Acute (5) Acute renal insufficiency ICD Code: N28.9 Status: Acute Assessment and Plan 1. GI bleed: Gross melena noted by ER physician. Appreciate GI recommendations. Status post EGD 11/18/16, which showed duodenal ulcer. Status post colonoscopy on 11/19/16 which showed scant diverticulosis. 2 polyps were removed at that time. 2. Acute emphysematous cholecystitis with transaminitis: Appreciate general surgery recommendations. Status post open cholecystectomy. Cleared for discharge by general surgery. Cultures growing Citrobacter, strep. Continue antibiotics per infectious disease. 3. Anemia: Secondary to acute blood loss from GI bleed, surgery. Status post transfusion units PRBCs. H&H now stable. 4. Acute kidney injury: Improved with IV fluids. 5. DVT prophylaxis: SCDs. Avoid chemical prophylaxis secondary to bleeding, anemia. Discharge Planning Discharge to SNF today. Problem Qualifiers (1) GI bleeding: Qualified Code: K92.2 - Gastrointestinal hemorrhage, unspecified gastrointestinal hemorrhage type (2) Anemia: Qualified Code: D64.9 - Anemia, unspecified type Gumaro Cordero MD Nov 25, 2016 11:14
[2016-11-25 12:00] VITALS: BP 123/60; PULSE 63; RESP 17; TEMP 95.6; O2SAT 94
[2016-11-25] MEDS: ACETAMINOPHEN/HYDROcodone 325 MG/10 MG TAB PO PRN (12:30)
[2016-11-25 12:47] VITALS: O2SAT 95
--- NOTE | 2016-12-02 07:39 | MP ---
cc: NATHANAEL GAFFNEY M.D. DATE OF PROCEDURE 11/22/2016 PROCEDURE Laparoscopic cholecystectomy converted to open cholecystectomy. PREOPERATIVE DIAGNOSIS Emphysematous cholecystitis. POSTOPERATIVE DIAGNOSIS Emphysematous cholecystitis with gangrenous changes in the gallbladder wall. ANESTHESIA General endotracheal. SURGEON MD Evgeny ESTIMATED BLOOD LOSS 1200 mL. FLUIDS 2000 mL crystalloid. COMPLICATIONS None. DRAINS DANITA x 1. SPECIMEN Gallbladder and stones to pathology. PROCEDURE IN DETAIL The patient was taken to the operating room and placed on the operating table in the supine position. After an adequate level of general endotracheal anesthesia was achieved, the abdomen was prepped and draped in the usual fashion. Time-out was taken confirming the correct patient site and procedure to be performed. Incision was made in the umbilicus and carried through the fascia sharply. The peritoneal cavity was directly visualized. A 12-mm balloon trocar was inserted and the balloon inflated. The abdomen was insufflated. The patient was placed in reverse Trendelenburg position. Three 5-mm trocars were placed in the upper abdomen with the first to the right of the falciform ligament, the second and third in the right subcostal region. All entered the abdominal cavity under direct vision uneventfully. The gallbladder was then dissected with omentum taken down off of the gallbladder. The harmonic scalpel was utilized in this patient due to the severe inflammatory process. The patient had question of duodenum stuck to the gallbladder and after further manipulations without progress being made and no identification of the cystic artery or cystic duct, the laparoscopic procedure was abandoned. At this point, a right subcostal incision was made and carried down through the fascia sharply. The rectus muscle was split and the medial portion of muscle was able to be pulled far enough medial that it did not need to be divided. The rectus muscle was divided laterally. The posterior fascia was elevated and opened. The peritoneal cavity was directly visualized. A Bookwalter retractor was then inserted to allow for adequate retraction and visualization. At this point the fundus of the gallbladder was grasped with a Aileen clamp and retracted upward. The gallbladder was then dissected off of the liver with electrodissection and some blunt dissection. The gallbladder was extremely inflamed and some liver tissue was removed with the gallbladder. The previously placed cholecystostomy tube was removed and placed under the drapes. At this point further dissection revealed the cystic artery which was ligated with silk suture, divided and dissection continued. Utilization of a tonsil after removal of stones from the infundibulum and the cystic duct revealed the cystic duct. The cystic duct was ligated with silk suture and the gallbladder, which had been fragmented, was passed off the table. The gallbladder fossa was examined and made hemostatic with electrocautery. Husam powder was added and a Eugenio-Allen drain was brought out via the most lateral 5-mm trocar site. This was affixed to the skin with a 3-0 nylon suture. With hemostasis assured and with the duodenum intact, the wound was closed in two layers with running #1 PDS suture. The skin was closed with 3-0 Vicryl and 5-0 PDS. The umbilical trocar site was closed with 0 Vicryl and 4-0 Vicryl. The remaining two trocar sites were closed with 4-0 Vicryl in an interrupted buried fashion. The subcostal incision was dressed with Steri-Strips. 4x4 was applied around the drain. The patient was extubated and taken back to the recovery room in stable condition. He tolerated the procedure well. MD AGUSTÍN Stroud/SSB /12:29 PM /7:14 AM
--- NOTE | 2017-01-03 15:18 | HHI.DS ---
Discharge Summary Admission Date Nov 16, 2016 at 20:04 Discharge Date: Nov 25, 2016 Admitting Diagnosis GI bleed, Acute Emphysematous Cholecystitis. (1) GI bleeding ICD Code: K92.2 (2) Acute emphysematous cholecystitis ICD Code: K81.0 (3) Leukocytosis ICD Code: D72.829 (4) Anemia ICD Code: D64.9 (5) Acute renal insufficiency ICD Code: N28.9 Procedures -11/22 S/P Laparoscopic cholecystectomy by Dr Pepper converted to open cholecystectomy Brief History - From Admission Mr. Rico is an 81-year-old male with past medical history of coronary artery disease status post CABG, hyperlipidemia, hypertension, and prostate hypertrophy who presented to the [facility] emergency room on 11/16/2016 complaining of dark, tarry stool. Abdomen/pelvis CT with acute emphysematous cholecystitis and several small abscesses in the adjacent liver. He was transferred to the [facility] for intervention at the request of the consulting surgeon, Dr. Friedman. The patient is seen in his hospital room with his at his bedside. The patient states that he has been having a very poor appetite with associated weight loss. He has been having dark stools over the past few weeks but over the past couple of days every stool is now black and tarry. He reports having one bowel movement daily. He complains of associated abdominal bloating ( though examination of abdomen is normal). He denies associated burning or pain with urination or hematuria. His reports a possible tactile fever over the past couple of days. Denies chest pain, shortness of breath, dizziness, or syncope. Denies abdominal pain. Denies diabetes mellitus, respiratory problems, liver or kidney dysfunction, thyroid problems, seizures, cancer, or problems with blood clots such as DVT, PE , or CVA. . Imaging Last Impressions Renal Ultrasound 11/24/16 0000 Signed Impressions: Service Date/Time: Thursday, November 24, 2016 15:03 - CONCLUSION: 1. Limited study but kidneys appear unremarkable. Luis Eduardo Denise MD Percutaneous Cholangiogram 11/17/16 0000 Signed Impressions: Service Date/Time: Thursday, November 17, 2016 13:41 - CONCLUSION: Uncomplicated percutaneous cholecystostomy as above. Pus obtained from the gallbladder lumen. A sample was sent to microbiology. Allan Thompson Jr., MD Abdomen/Pelvis CT 11/16/16 1612 Signed Impressions: Service Date/Time: Wednesday, November 16, 2016 17:49 - CONCLUSION: Acute emphysematous cholecystitis. Several small abscesses in the adjacent liver. Garfield Suh MD PE at Discharge General: No acute distress. Heart: Regular rate and rhythm. No murmur. Lungs: Clear to auscultation bilaterally. No wheezes, rales, or rhonchi. Breathing is nonlabored. Abdomen: Soft, nontender, mildly distended. Surgical wounds are healing. Extremities: No lower extremity edema. Psych: Alert and oriented. Hospital Course The patient was admitted for management of GI bleed and acute emphysematous cholecystitis. Gastroenterology and general surgery were consulted. Percutaneous cholecystostomy tube was placed by interventional radiology. Panendoscopy showed normal esophageal and gastric mucosa. There was a duodenal ulcer. The patient was noted to have bacteremia. Infectious disease was consulted. Antibiotics were adjusted. Colonoscopy showed 2 small polyps that were removed during the procedure. Open cholecystectomy was done by general surgery. Routine postoperative care was continued. The patient continued to improve throughout the hospitalization. He was cleared for discharge by gastroenterology and general surgery. Arrangements were made for discharge to fdc facility. Pt Condition on Discharge: Stable Discharge Disposition: Discharge to SNF Discharge Time: > 30 minutes Discharge Instructions DIET: Follow Instructions for: As Tolerated, No Restrictions Activities you can perform: Regular-No Restrictions Follow up Referrals: PCP Follow-up - 2 Weeks Surgical - 1 Week with Fabio Pepper MD New Medications: Acetaminophen (Acetaminophen) 500 Mg Tab 500 MG PO Q6H PRN PAIN SCALE 1 TO 3 #20 Ref 0 TAB Walker with Front Wheels (Walker with Front Wheels) 1 Mis Mis 1 EA .ROUTE DIRECTED #1 Ref 0 EA Hydrocodone-Acetaminophen (Hydrocodone-Acetaminophen) 5-325 mg Tab 1 TAB PO Q4H PRN PAIN SCALE 4 TO 10 #15 Ref 0 TAB Levofloxacin (Levaquin) 750 Mg Tab 750 MG PO DAILY Infection Days 7 TAB Metronidazole (Flagyl) 500 Mg Tab 500 MG PO Q6HR Infection Days 7 TAB Continued Medications: Amlodipine (Amlodipine) 5 Mg Tab 5 MG PO HS Blood Pressure Management #30 Ref 0 TAB Atenolol (Atenolol) 25 Mg Tab 25 MG PO HS Blood Pressure Management #30 TAB Atorvastatin (Atorvastatin) 40 Mg Tab 40 MG PO HS Cholesterol Management #30 Ref 0 TAB Lisinopril (Lisinopril) 10 Mg Tab 10 MG PO HS #30 Ref 0 TAB Tamsulosin (Tamsulosin) 0.4 Mg Cap 0.4 MG PO HS Manage Prostate Problems #30 Ref 0 CAP Discontinued Medications: Aspirin (Aspirin) 81 Mg Tabdr 81 MG PO HS TAB Gumaro Cordero MD Jan 03, 2017 15:18
== END 2016-11-25 15:18 | DRG 356 ==
LOC: PHED 15:44 → PHEDA 20:04 → N04B 21:58 → N07B 11-22 13:39 → N07A 11-22 16:30
PROVIDERS: ADMIT Family Medicine; ATTEND Family Medicine
PROC: 0F9430Z Drainage of Gallbladder with Drainage Device, Percutaneous Approach (ICD-10-PCS; 2016-11-17)
PROC: BF12YZZ Fluoroscopy of Gallbladder using Other Contrast (ICD-10-PCS; 2016-11-17)
PROC: 0DB68ZX Excision of Stomach, Via Natural or Artificial Opening Endoscopic, Diagnostic (ICD-10-PCS; 2016-11-18)
PROC: 0DBM8ZX Excision of Descending Colon, Via Natural or Artificial Opening Endoscopic, Diagnostic (ICD-10-PCS; 2016-11-19)
PROC: 0DBN8ZX Excision of Sigmoid Colon, Via Natural or Artificial Opening Endoscopic, Diagnostic (ICD-10-PCS; 2016-11-19)
PROC: 30233N1 Transfusion of Nonautologous Red Blood Cells into Peripheral Vein, Percutaneous Approach (ICD-10-PCS; 2016-11-22)
PROC: 0FJ44ZZ Inspection of Gallbladder, Percutaneous Endoscopic Approach (ICD-10-PCS; 2016-11-22)
PROC: 0FT40ZZ Resection of Gallbladder, Open Approach (ICD-10-PCS; principal; 2016-11-22 09:42)
DX: K26.4 Chronic or unspecified duodenal ulcer with hemorrhage (principal); K75.0 Abscess of liver; N17.9 Acute kidney failure, unspecified; K80.00 Calculus of gallbladder with acute cholecystitis without obstruction; E86.0 Dehydration; B96.89 Other specified bacterial agents as the cause of diseases classified elsewhere; B95.5 Unspecified streptococcus as the cause of diseases classified elsewhere; D62 Acute posthemorrhagic anemia; K31.84 Gastroparesis; Z95.1 Presence of aortocoronary bypass graft; I25.10 Atherosclerotic heart disease of native coronary artery without angina pectoris; K64.8 Other hemorrhoids; K57.30 Diverticulosis of large intestine without perforation or abscess without bleeding; I10 Essential (primary) hypertension; E78.5 Hyperlipidemia, unspecified; N40.0 Benign prostatic hyperplasia without lower urinary tract symptoms; R74.0 Nonspecific elevation of levels of transaminase and lactic acid dehydrogenase [LDH]; E78.00 Pure hypercholesterolemia, unspecified; K21.9 Gastro-esophageal reflux disease without esophagitis; D72.821 Monocytosis (symptomatic); Z53.31 Laparoscopic surgical procedure converted to open procedure; Z79.82 Long term (current) use of aspirin; Z87.891 Personal history of nicotine dependence
CPT/HCPCS: 36430; 47490; 74177; 76775; 76937; 80048; 80053; 81001; 82565; 82805; 83605; 83690; 83735; 85014; 85018; 85025; 85610; 85730; 86850; 86900; 86901; 86920; 86922; 87040; 87070; 87077; 87186; 87205; 88304; 88305; 88307; 88312; 88331; 93005; 96361; 96365; 99152; 99153; C1729; C1769; C9113; J0131; J0295; J0696; J1170; J2250; J2405; J2543; J2710; J3010; J3370; J7030; J7040; J7050; J7120; P9016; Q9967

== ENCOUNTER → 2017-06-09 | Day surgery (SDC) | payer MEDICARE, BC ==
[~2017-06-09] MED LIST: ACET500T3 PO; ACETAMINOPHEN 1000 MG/100 ML 100 ML IV ONE; AMLO5TAB2 PO; ATEN25TA PO; ATOR40TA16 PO; BUPIVACAINE/EPINEPHRINE 0.25% 50 ML VIAL ONE; DEXAMETHASONE SOD PHOS 4 MG/ML VIAL IV ONE; HYDR-3516 PO; ISOSULFAN BLUE 50 MG/5 ML VIAL SQ ONE; LACTATED RINGER'S 1000 ML INJ 1,000 ML ONE; LEVA750T PO; LIDOCAINE 1%/EPINEPHrine 1:200,000 PF SOLN 30 ML VIAL ONE; LISI10TA3 PO; METR-1 PO; ONDANSETRON HCL 4 MG/2 ML VIAL IV PUSH ONE; PROPOFOL 100 MG/10 ML INJ IV ONE; SODIUM CHLOR 0.9% 250 ML INJ 250 ML IV ONE; TAMS0.4C4 PO; VANCOMYCIN HCL 1000 MG VIAL ONE; WALKER WHEELS/F1 MIS; ceFAZolin INJ 1,000 MG VIAL ONE
--- NOTE | 2017-06-11 19:42 | MP ---
cc: NATHANAEL GAFFNEY M.D., VANCE E. M.D. DATE OF SURGERY 06/09/2017 PROCEDURE 1. Injection Lymphazurin blue dye. 2. Excision sentinel lymph node left axilla x1. 3. Left simple mastectomy. PREOPERATIVE DIAGNOSIS Suspicious left breast mass. POSTOPERATIVE DIAGNOSIS Same. ANESTHESIA LMA. SURGEON MD Evgeny ESTIMATED BLOOD LOSS 50 ml. FLUIDS 1050 ml crystalloid. COMPLICATIONS None. DRAINS ReliaVac x 1. SPECIMEN Left axillary sentinel node x 1 and left breast to pathology. PROCEDURE IN DETAIL The patient was seen in the department of nuclear medicine where he underwent injection with technetium 99 sulfur colloid. The patient was observed in the nuclear medicine department where imaging failed to demonstrate sentinel node. He was then taken to the operating room and placed on the operating table in the supine position after marking the left breast and having this confirmed by the patient. The patient underwent laryngeal mask anesthesia and the left breast was then prepped. A time-out was taken confirming the correct patient, site and procedure to be performed. The left breast was injected with a Lymphazurin blue dye in the periareolar region. The breast was compressed gently for 2-3 minutes. The breast then had excision of the nipple-areolar complex and the surrounding skin in an oval type incision. Dissection was carried down to the muscle and the breast was peeled in a medial to lateral fashion off of the chest wall. Prior to doing this superiorly the probe was utilized to identify a lymph node that was blue and had activity above background. The lymph node had activity above background and this was completely excised. After removal there was no further activity above background and blue channels were followed and no other blue nodes were noted. There were no clinically suspicious lymph nodes. At this point the breast was then dissected in a medial to lateral fashion off of the chest wall. The breast was oriented with silk sutures and passed off the table. The wound was reinspected and all bleeding meticulously controlled with electrocautery. The wound was irrigated and a ReliaVac drain brought out via an inferiorly based stab incision and fixed to the skin with a 3-0 nylon suture. The wound was closed with interrupted 2-0 Vicryl suture and the skin closed with 5-0 PDS in a running subcuticular fashion. The wound was dressed with Steri-Strips and a 4x4 applied around the drain site. The patient was extubated and taken back to the recovery room in stable condition. Sponge, needle and instrument counts were reported to be correct. MD AGUSTÍN Stroud/LAYA /3:24 PM /7:27 PM
== END | disposition home or self-care (01) ==
LOC: ESDC 08:11
PROVIDERS: ATTEND Surgery Trauma Surgery
DX: C50.922 Malignant neoplasm of unspecified site of left male breast (principal)
CPT/HCPCS: 00400; 01610; 19303; 38525; 38792; 88305; 88309; J0131; J0690; J1100; J2405; J3010; J3370; J7050; J7120; Q9968; 88307; 88361; 88377

== ENCOUNTER 2017-07-20 08:55 | Day surgery (SDC) | payer MEDICARE, BC ==
[~2017-07-20] VITALS: Ht 180.3 cm; Wt 91.8 kg
[~2017-07-20 08:55] MED LIST changes: -ACETAMINOPHEN 1000 MG/100 ML 100 ML IV ONE; -BUPIVACAINE/EPINEPHRINE 0.25% 50 ML VIAL ONE; -DEXAMETHASONE SOD PHOS 4 MG/ML VIAL IV ONE; -ISOSULFAN BLUE 50 MG/5 ML VIAL SQ ONE; -LACTATED RINGER'S 1000 ML INJ 1,000 ML ONE; -LIDOCAINE 1%/EPINEPHrine 1:200,000 PF SOLN 30 ML VIAL ONE; -ONDANSETRON HCL 4 MG/2 ML VIAL IV PUSH ONE; -PROPOFOL 100 MG/10 ML INJ IV ONE; -SODIUM CHLOR 0.9% 250 ML INJ 250 ML IV ONE; -VANCOMYCIN HCL 1000 MG VIAL ONE; -ceFAZolin INJ 1,000 MG VIAL ONE
[2017-07-20 09:19] VITALS: BP 149/69; PULSE 66; RESP 20; TEMP 97.1; O2SAT 98
[2017-07-20] MEDS ORDERED: LIDOCAINE 1%/EPINEPHrine 1:100,000 SOLN 20 ML VIAL ONE (10:25)
[2017-07-20] MEDS ORDERED: SODIUM CHLOR 0.9% 1000 ML IV SCH (10:30)
[2017-07-20] MEDS ORDERED: MIDAZOLAM HCL 2 MG/2 ML VIAL ONE (10:42)
--- NOTE | 2017-07-20 12:01 | PD.RAD ---
Post CT Procedure Prog Note Pre Procedure Diagnosis: (1) Liver mass Post Procedure Diagnosis: (1) Liver mass Procedure Date: Jul 20, 2017 Supervising Radiologist: Allan Thompson JR Plan of Activity Patient to Unit: [facility]OP[facility] Patient Condition: Good Additional Comments: Prior PET/CT and MRI reviewed. CT and US performed today to try and visualize hepatic lesion for biopsy. Unable to visualize the lesion. See PACS Report for procedural detail/treatment Jr. Jay,Allan Valles MD Jul 20, 2017 12:01
--- NOTE | 2017-07-20 13:06 | RADRPT ---
EXAM DATE/TIME: 07/20/2017 11:04 [facility] COMPARISON: No previous studies available for comparison. INDICATIONS : Liver mass ORAL CONTRAST: No oral contrast ingested. RADIATION DOSE: 31.44 CTDIvol (mGy) MEDICAL HISTORY : Carcinoma, breast. SURGICAL HISTORY : None. ENCOUNTER: Initial ACUITY: 1 day PAIN SCALE: 0/10 LOCATION: liver TECHNIQUE: Volumetric scanning of the abdomen was performed. Using automated exposure control and adjustment of the mA and/or kV according to patient size, radiation dose was kept as low as reasonably achievable to obtain optimal diagnostic quality images. DICOM format image data is available electronically for review and comparison. FINDINGS: CT scan images were performed through the liver in preparation for a liver mass biopsy. I reviewed th e patient's outpatient MRI of the abdomen and pelvis CT. There is concern for a lesion involving the right lobe of the liver directly adjacent to gallbladder fossa within segment 5. CT images revealed n o discernible lesion. The colon resides in the gallbladder fossa in this patient who is status post c holecystectomy. No contour irregularity of the liver is observed. No displacement of vessels. I am un able to perform a biopsy with lack of visualization lesion. The patient was sent to ultrasound to try and identify the lesion with ultrasound. Please see that report separately. CONCLUSION: Unable to visualize the lesion. Biopsy could not be performed. Please see ultrasound report fransisco Thompson Jr., MD on July 20, 2017 at 13:02 Board Certified Radiologist. This report was verified electronically.
--- NOTE | 2017-07-20 13:14 | RADRPT ---
EXAM DATE/TIME: 07/20/2017 11:21 [facility] COMPARISON: No previous studies available for comparison. INDICATIONS : Liver lesion. MEDICAL HISTORY : Hypercholesterolemia. Hypertension. Carcinoma, breast. Cardiac disorder. SURGICAL HISTORY : Mastectomy, left. Eye surgery. CABG x 5. ENCOUNTER: Initial ACUITY: 1 day PAIN SCORE: 0/10 LOCATION: Right upper quadrant AREA EVALUATED: Liver mass FINDINGS: The patient's liver was sonographically evaluated to try and identify the hepatic lesion seen on the MRI and PET/CT. This lesion is occult on the CT. Sonographic images show the colon in the gallbladder fossa. No lesion is discernible within the adjac ent liver parenchyma. The sonographic images do not reveal a discrete lesion. CONCLUSION: Unable to visualize the hepatic lesion for biopsy. Allan Thompson Jr., MD on July 20, 2017 at 13:04 Board Certified Radiologist. This report was verified electronically.
== END 2017-07-20 12:15 | disposition home or self-care (01) ==
LOC: HRIP 08:55 → HRAD 08:55
PROVIDERS: ATTEND Internal Medicine Hematology & Oncology
DX: K76.9 Liver disease, unspecified (principal); I10 Essential (primary) hypertension; E78.00 Pure hypercholesterolemia, unspecified; Z95.1 Presence of aortocoronary bypass graft; Z90.12 Acquired absence of left breast and nipple
CPT/HCPCS: 74150; 76705; G0463; J2250; J3010; 99211

== ENCOUNTER 2017-12-14 01:36 | Emergency (ER) | payer MEDICARE, BC ==
[~2017-12-14] VITALS: Ht 180.3 cm; Wt 92.6 kg
[~2017-12-14 01:36] MED LIST changes: -HYDR-3516 PO; -METR-1 PO
[2017-12-14 01:41] VITALS: BP 110/54; PULSE 67; RESP 18; TEMP 98.5; O2SAT 94
[2017-12-14 02:30] VITALS: BP 120/68; PULSE 62; RESP 20; O2SAT 96
[2017-12-14] MEDS ORDERED: PHEN1LIQ60 PO (02:40)
--- NOTE | 2017-12-14 02:54 | PD ---
HPI Chief Complaint: Respiratory Symptoms Time Seen by Provider: 02:53 Travel History International Travel<30 days: No Contact w/Intl Traveler<30days: No Traveled to known affect area: No History of Present Illness HPI 82-year-old male came to the emergency room with history of cough, runny nose, congestion and some chills for past 3-4 days. Patient says the thing that is bothering him the most is the cough which keeps him awake all night. Patient has history of breast cancer and has had left mastectomy. He is getting radiation. His oncologist is Dr. Blackwell. Patient has acceptable vital signs in triage. No history of chest pain. Patient does have history of coronary artery disease about 20 years ago. His administrative personal assistant is Dr. Pro. FORMERLY [facility], [facility] Past Medical History Narrative Medical List of his past medical, surgical, social and family history is reviewed from the nursing note. Heart Rhythm Problems: No Cancer: Yes Cardiovascular Problems: Yes High Cholesterol: Yes Chest Pain: No Congestive Heart Failure: No Diabetes: No Diminished Hearing: No Endocrine: No Genitourinary: No Hepatitis: No Hypertension: Yes Immune Disorder: No Musculoskeletal: No Neurologic: No Psychiatric: No Reproductive: No Respiratory: No Thyroid Disease: No Tetanus Vaccination: Unknown Past Surgical History Abdominal Surgery: Yes AICD: No Cardiac Surgery: Yes Cholecystectomy: Yes Coronary Artery Bypass Graft: Yes Ear Surgery: No Endocrine Surgery: No Eye Surgery: Yes Genitourinary Surgery: No Gynecologic Surgery: No Joint Replacement: No Oral Surgery: No Pacemaker: No Thoracic Surgery: Yes (LEFT MASECTOMY) Other Surgery: Yes Social History Alcohol Use: Yes Tobacco Use: No Substance Use: No Allergies-Medications (Allergen,Severity, Reaction): Coded Allergies: No Known Allergies (Verified Adverse Reaction, Unknown, 12/14/17) Comments No known drug allergies. Reported Meds & Prescriptions Reported Meds & Active Scripts Active Vigamox Opth Drops (Moxifloxacin Opth Drops) 0.5 % Soln 1 Drop EACH EYE TID 5 Days Tylenol-Codeine Elixir (Acetaminophen-Codeine Liq) 120-12 Mg/5 Ml Soln 10 Ml PO Q6H PRN Zithromax Z-Vince (Azithromycin) 250 Mg Dspk 250 Mg PO DIRECTED 500 MG (2 tabs) day 1, then 1 tab days 2-5. Reported Nyquil Severe Cold/Flu Liq (Pgocgrjcacrde-Qdhncfulkb-BG-Apap Liq) 5-6.25-10-325 Mg/15 Ml Liq 10 Ml PO Q6HR Atorvastatin (Atorvastatin Calcium) 40 Mg Tab 40 Mg PO HS Lisinopril 10 Mg Tab 10 Mg PO HS Amlodipine (Amlodipine Besylate) 5 Mg Tab 5 Mg PO HS Atenolol 25 Mg Tab 25 Mg PO HS Tamsulosin (Tamsulosin HCl) 0.4 Mg Cap 0.4 Mg PO HS Narrative Medication List of his home medications reviewed from the nursing note. Review of Systems Except as stated in HPI: all other systems reviewed are Neg General / Constitutional: Positive: Chills HENT: Positive: Congestion Respiratory: Positive: Cough Physical Exam Narrative GENERAL: Awake, alert, moderate distress SKIN: Focused skin assessment warm/dry. HEAD: Atraumatic. Normocephalic. EYES: Pupils equal and round. No scleral icterus. No injection or drainage. Bilateral purulent drainage ENT: No nasal bleeding or discharge. Mucous membranes pink and moist. NECK: Trachea midline. No JVD. CARDIOVASCULAR: Regular rate and rhythm. No murmur appreciated. RESPIRATORY: No accessory muscle use. Bibasilar crackles left worse than right. GASTROINTESTINAL: Abdomen soft, non-tender, nondistended. Hepatic and splenic margins not palpable. MUSCULOSKELETAL: No obvious deformities. No clubbing. No cyanosis. No edema. NEUROLOGICAL: Awake and alert. No obvious cranial nerve deficits. Motor grossly within normal limits. Normal speech. PSYCHIATRIC: Appropriate mood and affect; insight and judgment normal. Data Data Last Documented VS Orders Orders Complete Blood Count With Diff (12/14/17 03:12) Basic Metabolic Panel (Bmp) (12/14/17 03:12) B-Type Natriuretic Peptide (12/14/17 03:12) Troponin I (12/14/17 03:12) Influenzae A/B Antigen (12/14/17 03:12) Blood Culture (12/14/17 03:12) Iv Access Insert/Monitor (12/14/17 03:12) Electrocardiogram (12/14/17 03:12) Ecg Monitoring (12/14/17 03:12) Oximetry (12/14/17 03:12) Oxygen Administration (12/14/17 03:12) Chest, Single Ap (12/14/17 03:12) Sodium Chloride 0.9% Flush (Ns Flush) (12/14/17 03:15) Lactic Acid (12/14/17 04:24) Ceftriaxone Inj (Rocephin Inj) (12/14/17 04:30) Azithromycin Inj (Zithromax Inj) (12/14/17 04:30) Acetamin-Codeine 300-30 Mg (Tylenol-Code (12/14/17 04:30) Ed Discharge Order (12/14/17 05:20) Labs Laboratory Tests Test 12/14/17 03:30 12/14/17 04:30 White Blood Count 6.4 TH/MM3 Red Blood Count 4.48 MIL/MM3 Hemoglobin 13.6 GM/DL Hematocrit 40.9 % Mean Corpuscular Volume 91.4 FL Mean Corpuscular Hemoglobin 30.5 PG Mean Corpuscular Hemoglobin Concent 33.3 % Red Cell Distribution Width 13.8 % Platelet Count 138 TH/MM3 Mean Platelet Volume 7.3 FL Neutrophils (%) (Auto) 71.0 % Lymphocytes (%) (Auto) 7.8 % Monocytes (%) (Auto) 18.8 % Eosinophils (%) (Auto) 2.2 % Basophils (%) (Auto) 0.2 % Neutrophils # (Auto) 4.6 TH/MM3 Lymphocytes # (Auto) 0.5 TH/MM3 Monocytes # (Auto) 1.2 TH/MM3 Eosinophils # (Auto) 0.1 TH/MM3 Basophils # (Auto) 0.0 TH/MM3 CBC Comment DIFF FINAL Differential Comment Blood Urea Nitrogen 16 MG/DL Creatinine 1.10 MG/DL Random Glucose 120 MG/DL Calcium Level 8.2 MG/DL Sodium Level 139 MEQ/L Potassium Level 4.3 MEQ/L Chloride Level 105 MEQ/L Carbon Dioxide Level 28.5 MEQ/L Anion Gap 6 MEQ/L Estimat Glomerular Filtration Rate 64 ML/MIN Troponin I LESS THAN 0.02 NG/ML B-Type Natriuretic Peptide 87 PG/ML Lactic Acid Level 0.9 mmol/L MDM Medical Decision Making Medical Screen Exam Complete: Yes Emergency Medical Condition: Yes Medical Record Reviewed: Yes Interpretation(s) Twelve-lead EKG was reviewed by me. Normal sinus rhythm, normal axis, nonspecific ST-T wave changes. Heart rate of 60 bpm per Differential Diagnosis Pneumonia, CHF, influenza, viral illness Narrative Course 5:14 AM chest x-ray was read by the radiologist as left lingular infiltrate. CBC is within acceptable limits. Chemistry is within normal limits. BNP is within normal limits and so is lactic acid. I have ordered for IV Rocephin and Zithromax. Patient is maintaining his oxygen saturation well. I am comfortable discharging him home with a prescription for Zithromax. He was concerned for the coughing and I gave him a dose of Tylenol with codeine here. I will send him home with a prescription for that as well. He needs to see his oncologist soon. Procedures EKG Prior to Arrival: No Diagnosis Primary Impression: Cough Additional Impressions: Pneumonia Qualified Codes: J18.1 - Lobar pneumonia, unspecified organism Conjunctivitis Qualified Codes: B30.9 - Viral conjunctivitis, unspecified Referrals: Primary Care Physician Additional Instructions: Take the medication as per the prescription direction. Please follow-up with your oncologist Dr. Blackwell in the next couple days. Return to the ER if the condition worsens or any other new concerns. The cough medication will make you groggy. He should not be driving while taking them. Med/Other Pt SpecificInfo: Prescription(s) given Scripts Moxifloxacin Opth Drops (Vigamox Opth Drops) 0.5 % Soln 1 DROP EACH EYE TID for Infection for 5 Days, #1 BOTTLE 0 Refills Prov: Casi Valdovinos MD 12/14/17 Acetaminophen-Codeine Liq (Tylenol-Codeine Elixir) 120-12 Mg/5 Ml Soln 10 ML PO Q6H Y for PAIN, #120 ML 0 Refills Prov: Casi Valdovinos MD 12/14/17 Azithromycin (Zithromax Z-Vince) 250 Mg Dspk 250 MG PO DIRECTED for Infection, #1 DSPK 0 Refills 500 MG (2 tabs) day 1, then 1 tab days 2-5. Prov: Casi Valdovinos MD 12/14/17 Disposition: 01 DISCHARGE HOME Condition: Stable Casi Valdovinos MD Dec 14, 2017 02:54
[2017-12-14] MEDS ORDERED: SODIUM CHLORIDE 0.9% FLUSH 10 ML FLUSH IVF PRN (03:15)
[2017-12-14 03:30] VITALS: BP_SYST 112; BP_SYST 99; BP_DIAS 55; BP_DIAS 58; PULSE 59; PULSE 62; RESP 20; TEMP 99.5; O2SAT 95; O2SAT 98
--- NOTE | 2017-12-14 03:36 | RADRPT ---
EXAM DATE/TIME: 12/14/2017 03:21 [facility] COMPARISON: No previous studies available for comparison. INDICATIONS : Short of breath and cough. MEDICAL HISTORY : Hypercholesterolemia. Hypertension. Carcinoma, breast. Cardiac disorder. SURGICAL HISTORY : CABG. Mastectomy, left. ENCOUNTER: Initial ACUITY: 3 days PAIN SCORE: 0/10 LOCATION: Bilateral chest FINDINGS: Frontal view of the chest demonstrates an irregular shaped infiltrate in the retrocardiac region. Th ere is loss of delineation of the midportion of the lateral left hemidiaphragm. The right lung is josselyn ar. The heart is upper limits normal size. Evidence of prior median sternotomy. CONCLUSION: Partially consolidated infiltrate left lower lobe. Allan Owens MD on December 14, 2017 at 3:34 Board Certified Radiologist. This report was verified electronically.
[2017-12-14 03:44] LABS: AUTOMATED NEUTROPHIL # 4.6 TH/MM3 (1.8-7.7); BASOPHIL % 0.2 % (0.0-2.0); EOSINOPHIL # 0.1 TH/MM3 (0-0.4); EOSINOPHIL % 2.2 % (0.0-4.0); HEMATOCRIT 40.9 % (39.0-51.0); HEMOGLOBIN 13.6 GM/DL (13.0-17.0); LYMPH % 7.8 % (9.0-44.0); LYMPHOCYTE # 0.5 TH/MM3 (1.0-4.8); MEAN CELL VOLUME 91.4 FL (80.0-100.0); MEAN CORPUSCULAR HEMOGLOBIN 30.5 PG (27.0-34.0); MEAN CORPUSCULAR HGB CONC 33.3 % (32.0-36.0); MEAN PLATELET VOLUME 7.3 FL (7.0-11.0); MONO % 18.8 % (0.0-8.0); MONOCYTE # 1.2 TH/MM3 (0-0.9); PLATELET COUNT 138 TH/MM3 (150-450); RED BLOOD COUNT 4.48 MIL/MM3 (4.50-5.90); RED CELL DISTRIBUTION WIDTH 13.8 % (11.6-17.2); WHITE BLOOD COUNT 6.4 TH/MM3 (4.0-11.0)
[2017-12-14 03:52] LABS: CHLORIDE 105 MEQ/L (98-107); SODIUM (NA) 139 MEQ/L (136-145)
[2017-12-14 03:54] LABS: CALCIUM 8.2 MG/DL (8.5-10.1)
[2017-12-14 03:55] LABS: BICARBONATE 28.5 MEQ/L (21.0-32.0); BLOOD UREA NITROGEN 16 MG/DL (7-18); GLUCOSE,RANDOM 120 MG/DL (74-106)
[2017-12-14 03:58] LABS: GLOMERULAR FILTRATION RATE 64 ML/MIN (>89)
[2017-12-14 04:03] LABS: TROPONIN I LESS THAN 0.02 NG/ML (0.02-0.05)
[2017-12-14 04:30] VITALS: BP 131/55; PULSE 62; RESP 20; O2SAT 98
[2017-12-14] MEDS ORDERED: AZITHROMYCIN INJ 500 MG in SODIUM CHLOR 0.9% 250 ML INJ 250 ML IV ONE (04:30)
[2017-12-14] MEDS ORDERED: cefTRIAXone INJ 1,000 MG in SODIUM CHLORIDE 0.9% INJ 100 ML IV ONE (04:30)
[2017-12-14] MEDS ORDERED: ACETAMINOPHEN/CODEINE 300 MG/30 MG TAB PO ONE (04:30)
[2017-12-14] MEDS ORDERED: ZITHTAB PO (05:18)
[2017-12-14] MEDS ORDERED: ACET120S PO (05:18)
[2017-12-14] MEDS ORDERED: VIGA0.5D EACH EYE (05:26)
[2017-12-14 05:30] VITALS: BP 110/69; PULSE 62; RESP 20; TEMP 99.5; O2SAT 98
[2017-12-14 06:58] VITALS: BP 99/62; TEMP 99.8
--- NOTE | 2017-12-14 20:25 | EKG ---
Date Performed: 12/14/2017 Time Performed: 03:47:00 PTAGE: 82 years EKG: Sinus rhythm PROBABLE INFERIOR MYOCARDIAL INFARCTION ABNORMAL ECG PREVIOUS TRACING : 11/22/2016 07.02 Since the previous tracing, no significant change noted DOCTOR: Julián Neri Interpretating Date/Time 12/14/2017 20:24:05
== END 2017-12-14 07:01 | disposition home or self-care (01) ==
LOC: PHED 01:36
DX: J18.1 Lobar pneumonia, unspecified organism (principal); B30.9 Viral conjunctivitis, unspecified; R94.31 Abnormal electrocardiogram [ECG] [EKG]; I10 Essential (primary) hypertension; I25.10 Atherosclerotic heart disease of native coronary artery without angina pectoris; E78.00 Pure hypercholesterolemia, unspecified; Z85.3 Personal history of malignant neoplasm of breast; Z90.12 Acquired absence of left breast and nipple; Z95.1 Presence of aortocoronary bypass graft; Z79.899 Other long term (current) drug therapy
CPT/HCPCS: 71045; 80048; 83605; 83880; 84484; 85025; 87040; 87804; 93005; 96365; 96366; 96368; 99285; J0456; J0696; J7050

== ENCOUNTER 2018-06-21 06:51 | Inpatient (IN) ==
[2018-06-21] MEDS ORDERED: Dexamethasone Inj 20 MG/5 ML Vial IV.PUSH ONE (07:24)
[2018-06-21] MEDS ORDERED: Metoprolol Tartrate 25 MG Tablet PO ONE ×2 (07:26→07:48)
[2018-06-21] MEDS ORDERED: Chlorhexidine Gluconate 2% 1 Pack (2 Cloths) TOPICAL ONE ×2 (07:26→07:48)
[2018-06-21] MEDS ORDERED: Chlorhexidine 4% Topical 120 APPLIC/120 ML Bottle TOPICAL SCH (07:30)
[2018-06-21] MEDS ORDERED: Sodium Chlor 0.9% Inj 40 ML, Bupivacaine Liposo PF 1.3% Inj 20 ML P-ARTICULR SCH ×2 (07:30)
[2018-06-21] MEDS ORDERED: Sodium Chlor 0.9% Inj 500 ML IV.SIG SCH ×2 (08:00)
[2018-06-21] MEDS ORDERED: SODIUM CHLOR 0.9% IV.SIG SCH (08:00)
[2018-06-21] MEDS ORDERED: Vancomycin Inj 1,000 MG in Sodium Chlor 0.9% Inj 250 ML IV.SIG SCH (08:00)
[2018-06-21] MEDS ORDERED: ceFAZolin 2 GM Premix Inj 2 GM/50 ML PIGGYBACK IV.SIG SCH (08:00)
[2018-06-21] MEDS ORDERED: TRANEXAMIC ACID IV.SIG SCH (08:00)
[2018-06-21] MEDS ORDERED: Propofol Inj 500 MG/50 ML Vial ONE (09:47)
[2018-06-21] MEDS ORDERED: fentaNYL Citrate Inj 100 MCG/2 ML Ampul ONE (09:47)
[2018-06-21] MEDS ORDERED: Bupivacaine/Dextrose 0.75% Inj 2 ML Ampul ONE (09:48)
[2018-06-21] MEDS ORDERED: Famotidine PF Inj 20 MG/2 ML Vial ONE (09:48)
[2018-06-21] MEDS ORDERED: Lidocaine PF 1% Inj 5 ML Syringe OTHER ONE (10:05)
[2018-06-21] MEDS ORDERED: Glycopyrrolate Inj 1 MG/5 ML Syringe IV.PUSH ONE (10:05)
[2018-06-21] MEDS ORDERED: Phenylephrine/NS 1000 MCG/10ML Syringe IV.PUSH ONE (10:05)
[2018-06-21] MEDS ORDERED: Morphine Inj 4 MG/ML Vial IV.PUSH PRN (11:55)
[2018-06-21] MEDS ORDERED: Aluminum/Magnesium/Simethacone Susp 30 ML UDC PO PRN (11:55)
[2018-06-21] MEDS ORDERED: Post-op Orders (for Pharmacy) OTHER STA (11:55)
[2018-06-21] MEDS ORDERED: Bisacodyl 10 MG Supp RECTAL PRN (11:55)
--- NOTE | 2018-06-21 11:57 | P.OP ---
Preoperative Diagnosis: Right hip severe arthritis Postoperative Diagnosis: Same Date of procedure: 06/21/18 Procedure: Right total hip arthroplasty Anesthesia: spinal Surgeon: Terell Avendano MD Director Of Vital Statistics: JORDAN Kuhn The surgical procedure was assisted by my Advanced Registered Nurse Practitioner. My [employer] presence was necessary throughout this case for the manipulation and positioning of the surgical extremity. My [employer] was assisting me throughout the duration of this procedure. The skill set of an Advance Registered Nurse Practitioner was medically necessary to complete this procedure. During the surgical case, the surgical dental assistant was working at the back table and the Advance Registered Nurse Practitioner was directly assisting me. Operation and Findings: IMPLANT DESCRIPTION: 1. Latimer Gription Cup, acetabular size 54. 2. Latimer AltrX polyethylene, neutral. 4. Corail femoral stem size 14, no collar, standard offset. 5. Femoral head/neck metal, 36, +5. ESTIMATED BLOOD LOSS: 200 cc. JUSTIFICATION FOR PROCEDURE: The patient has end-stage osteoarthritis to the hip. There is an attached conservative measures pathway form in the chart that describes the nonoperative measures that were undertaken prior to consideration of surgical management. The patient understood the risks and benefits of surgical management. See my office notes for further details. PROCEDURE: The patient was brought back to the operative theatre. Adequate anesthesia was obtained. The patient received intravenous vancomycin and Ancef. The patient was carefully placed on the operative table. The lower extremity was prepped and draped in the usual sterile fashion. Fluoroscopic images were obtained. We made a standard anterior incision over the hip. We dissected through the TFL fascia, exposing the anterior capsule. Arthrotomy was performed in a T-shaped fashion. The capsule was tagged with a #2 FiberWire. End-stage arthritis was identified. Osteotomy was performed through the femoral neck exposing the acetabulum. Remnants of the labrum were resected and osteophytes were removed. We sequentially reamed the acetabulum. We trialed the hip and placed the final cup into position. This was done under fluoroscopic guidance to obtain the appropriate inclination and anteversion. A manhole cover was placed into the acetabular component. We then placed the final polyethylene into position and confirmed that it was well seated. Capsular attachments on the calcar and the inner aspect of the greater trochanter were resected. On the proximal aspect of the femur we used a rongeur , box osteotome, canal finder, sequential broaches and lateralizing rasp. We calcar planed the proximal femur. Then thoroughly irrigated the wound. We trialed the hip with the appropriate size stem. We placed the final stem in to position and trialed again. The hip was stable while it was externally rotated 70 degrees when the leg was lowered to the floor. The final head was applied, and final fluoroscopic images were obtained. The wound was thoroughly irrigated again. Interarticular injection of liposomal bupivacaine was given. The capsule was closed with #2 FiberWire and #1 Vicryl. The deep fascia was closed with a #2 Stratafix, followed by 2-0 Vicryl in the skin and Dermabond dressing. Postop plan is to weight-bear as tolerated. DVT prophylaxis will be performed with SCDmarquise, KRISTIAN cardenas, early mobilization, and Lovenox followed by aspirin.
[2018-06-21] MEDS ORDERED: TRANEXAMIC ACID IV.SIG ONE (13:00)
[2018-06-21] MEDS ORDERED: SODIUM CHLOR 0.9% IV.SIG ONE (13:00)
--- NOTE | 2018-06-21 13:02 | XR ---
EXAM DATE: 06/21/2018 12:00 AM EDT AGE/SEX: 82 years / Male INDICATIONS: Right anterior hip replacement done in operating room. CLINICAL DATA: This is the patient's initial encounter. Patient reports that signs and symptoms have been present for 1 day and indicates a pain score of Nonresponsive. MEDICAL/SURGICAL HISTORY: Non-responsive. Non-responsive. COMPARISON: No prior exams available for comparison. FINDINGS: 3 spot fluoroscopic images obtained in the operating room during a procedure documents total hip arth roplasty hardware in place with acetabular and femoral hardware present. No unexpected finding is see n. CONCLUSION: Images document right total hip arthroplasty hardware. Electronically signed by: Garfield Cosme MD 06/21/2018 1:01 PM EDT
--- NOTE | 2018-06-21 13:25 | XR ---
EXAM DATE: 06/21/2018 11:55 AM EDT AGE/SEX: 82 years / Male INDICATIONS: Post op right total hip arthroplasty. CLINICAL DATA: This is the patient's subsequent encounter. Patient reports that signs and symptoms h ave been present for 1 day and indicates a pain score of Nonresponsive. MEDICAL/SURGICAL HISTORY: Non-responsive. Non-responsive. COMPARISON: POI, XR PELVIS AP, 02/17/2018. . FINDINGS: Interval right hip arthroplasty. Arthroplasty components are in anatomic alignment and well positione d. No acute bony fracture. Immediate postsurgical features in the right hip soft tissues. CONCLUSION: 1. Right hip arthroplasty in anatomic alignment without acute fracture. Electronically signed by: Nitish Rivera MD 06/21/2018 1:23 PM EDT
--- NOTE | 2018-06-21 14:02 | P.DCO ---
- Physical Therapy Physical Therapy: Gait training, Transfer training, bed to chair Hip: Total hip Right Lower Extremity Weight Bearing: Weight bearing as tolerated Right Lower Extremity Range of Motion: Active ROM - Nursing Nursing: Lucretia branch Dressing changes: Do not change dressing Additional instructions: First dressing change in the office - Certification Need for Home Health services: I have seen patient Jordan Rico on 06/21/18. My clinical findings support the need for the requested home health care services because: Need for Home Health Services: Limited ability to care for self, High risk of falls Homebound Certification: I certify that my clinical findings support that this patient is homebound because: Homebound Certification: Post-op weakness, Unsteady gait/balance
[2018-06-21] MEDS: Sod Chloride 0.9% Inj 1,000 ML IV.CONT SCH (16:21)
[2018-06-21] MEDS ORDERED: Zolpidem Tartrate 5 MG Tablet PO PRN (21:00)
[2018-06-21] MEDS: Senna/Docusate Sodium 8.6/50 MG Tablet PO SCH (21:26)
[2018-06-21] MEDS: Multivitamin/Minerals Therapeutic Tablet PO SCH (21:26)
[2018-06-21] MEDS ORDERED: amLODIPine 5 MG Tablet PO SCH (22:30)
[2018-06-21] MEDS ORDERED: Lisinopril 10 MG Tablet PO SCH (22:30)
[2018-06-21] MEDS ORDERED: Atenolol 25 MG Tablet PO SCH (22:30)
[2018-06-22] MEDS: Sod Chloride 0.9% Inj 1,000 ML IV.CONT SCH (05:08)
[2018-06-22 05:33] LABS: Hematocrit 34.3 % (39.0-51.0)
--- NOTE | 2018-06-22 07:28 | P.PNOP ---
Subjective Interval history: The patient is sitting on the side of the bed with minimal pain to the right hip. The patient has been ambulatory. The patient is requesting to go home today with home health. Physical Exam Vital signs: Vital Signs 06/21/18 07:45 06/21/18 12:19 06/21/18 12:30 Temperature 98.4 F 97.7 F Pulse Rate 60 89 83 Respiratory Rate 20 22 24 Blood Pressure 139/61 123/60 100/49 L Pulse Oximetry 99 97 97 06/21/18 12:45 06/21/18 13:00 06/21/18 13:30 Temperature Pulse Rate 84 79 82 Respiratory Rate 24 20 17 Blood Pressure 105/52 L 109/55 L 116/56 L Pulse Oximetry 97 97 100 06/21/18 14:00 06/21/18 16:00 06/21/18 19:39 Temperature 97.6 F 97.4 F L 98.1 F Pulse Rate 84 72 72 Respiratory Rate 16 20 18 Blood Pressure 121/56 L 108/55 L 140/64 Pulse Oximetry 98 97 97 06/22/18 00:10 06/22/18 04:53 Temperature 98.1 F 98.1 F Pulse Rate 80 73 Respiratory Rate 18 18 Blood Pressure 139/65 134/62 Pulse Oximetry 96 97 Intake & Output 06/21/18 06/22/18 06/22/18 18:59 06:59 18:59 Intake Total 2468.32 / 2468.32 680 / 680 Output Total 400 / 400 200 / 200 Balance 2068.32 / 2068.32 480 / 480 Weight 91.626 kg 96.8 kg Intake: IV 618.32 / 618.32 200 / 200 Cyklokapron Inj 915 MG In NS 218.32 / 218.32 Inj 100 ML @ 200 mls/hr IV.SIG ONCE ONE Rx#:[id number] Vancomycin Inj 1,000 MG In NS 250 / 250 Inj 250 ML @ 250 mls/hr IV.SIG HIDES INSPECTOR DEWAYNE Rx#:[id number] Ancef 2 GM Premix Inj 2 gm In 50 / 50 50 ml @ 100 mls/hr IV.SIG HIDES INSPECTOR DEWAYNE Rx#:[id number] Ancef Inj 1,000 MG In NS Inj 100 / 100 200 / 200 100 ML @ 200 mls/hr IV.SIG Q6H DEWAYNE Rx#:[id number] Oral 480 / 480 Anesthesia Amount 1850 / 1850 Output: Urine 200 / 200 Estimated Blood Loss 400 / 400 Other: # Voids 3 Date of Last Bowel Movement 06/22/18 # Bowel Movements 1 Weight On Admission 91.5 kg Narrative: The patient's dressing is clean, dry, and intact. EHL/TA/G are intact. 2+ pedal pulse. The patient's calf is soft and nontender. Sensation is intact to light touch distally. Results - Labs CBC & Chem 7: 06/22/18 04:44 Laboratory Results - last 24 hr 06/21/18 06/22/18 07:27 04:44 Hgb 12.0 L Hct 34.3 L Blood Type AB Positive Antibody Screen Negative - Imaging Impressions Hip X-Ray 06/21/18 00:00 CONCLUSION: Images document right total hip arthroplasty hardware. Hip X-Ray 06/21/18 11:55 CONCLUSION: 1. Right hip arthroplasty in anatomic alignment without acute fracture. - Procedures Right total hip arthroplasty Assessment and Plan - Problem List (1) Status post total hip replacement, right Code(s): Z96.641 - Presence of right artificial hip joint Status: Acute (2) Osteoarthritis of right hip Code(s): M16.11 - Unilateral primary osteoarthritis, right hip Status: Acute - Assessment and Plan POD #1: [Right] total hip arthroplasty 1. Weightbearing as tolerated on [right] lower extremity. 2. Lovenox followed by aspirin for DVT prophylaxis. 3. Ice as needed for swelling. 4. Stable per ortho for discharge to home health today after his class. 5. The patient will follow up with Dr. Avendano and/or JORDAN Forrester as previously scheduled.
[2018-06-22] MEDS ORDERED: Dexamethasone Inj 20 MG/5 ML Vial IV.PUSH ONE (08:00)
[2018-06-22 08:23] VITALS: O2SAT 96
[2018-06-22] MEDS: Senna/Docusate Sodium 8.6/50 MG Tablet PO SCH (08:35)
[2018-06-22] MEDS: Multivitamin/Minerals Therapeutic Tablet PO SCH (08:36)
[2018-06-22] MEDS ORDERED: amLODIPine 5 MG Tablet PO SCH ×2 (09:00)
[2018-06-22] MEDS ORDERED: Atenolol 25 MG Tablet PO SCH (09:00)
[2018-06-22] MEDS ORDERED: Lisinopril 10 MG Tablet PO SCH (09:00)
[2018-06-22] MEDS ORDERED: Enoxaparin Inj 40 MG/0.4 ML Syringe SQ SCH (11:00)
[2018-06-22 13:26] VITALS: BP 150/66; PULSE 57; RESP 18; TEMP 98.2
--- NOTE | 2018-06-23 11:10 | P.DS ---
Date of admission: 06/21/18 06:51 Primary care physician: Chen Primary Care Physician Attending physician on discharge: Terell Avendano Anticipated date of discharge: 06/22/18 Brief History from admission: The patient was admitted to the hospital for severe osteoarthritis of the right hip to have a right total hip arthroplasty. DS: Diagnosis - Discharge Diagnosis (1) Status post total hip replacement, right Status: Acute (2) Osteoarthritis of right hip Status: Acute DS: Summary Hospital Course: The patient was admitted to the hospital for severe osteoarthritis of the [right ] hip to have a [right] total hip arthroplasty. The patient's surgery went well with no complication. The patient is on a [regular] diet. The patient's DVT prophylaxis includes use of [Lovenox followed by aspirin]. The patient is weightbearing as tolerated. The patient was discharged [home with home health] and will follow up in the office with Dr. Avendano and/or JORDAN Forrester as previously scheduled. - Time Spent with Patient Total time spent providing and/or coordinating discharge services: Greater than 30 minutes - Quality: VTE Deep Vein Thrombosis/Pulmonary Embolism Present on Admission: No Exam Vital signs: Vital Signs 06/22/18 12:00 Temperature 98.2 F Pulse Rate 57 L Respiratory Rate 18 Blood Pressure 150/66 H Intake & Output 06/22/18 06/23/18 06/23/18 18:59 06:59 18:59 Other: Date of Last Bowel Movement 06/22/18 Narrative: See last progress note for physical examination. Results Procedures completed during hospitalization: Right total hip arthroplasty - Impressions ITS Impressions Hip X-Ray 06/21/18 11:55 CONCLUSION: 1. Right hip arthroplasty in anatomic alignment without acute fracture. Discharge Plan - Discharge Disposition Patient Disposition: W/Home Health Service - Discharge Condition Condition: Stable - Discharge Order Discharge Orders: Discharge Order (Routine); Ordered 06/21/18 Ordered By: Arnav Garcia - Discharge Details Anticipated Discharge Date: 06/22/18 - Physicians Team Primary Care Provider: Primary Care Josselin,Chen Attending Provider: Terell Avendano Other Providers: [facility]ency - Rxs /Orders / Referrals /Forms Prescriptions: Continue amlodipine 5 mg Tablet 5 mg PO HS atenolol 25 mg Tablet 25 mg PO HS atorvastatin 40 mg Tablet 40 mg PO HS lisinopril 10 mg Tablet 10 mg PO HS tamoxifen 20 mg Tablet 20 mg PO DAILY tamsulosin 0.4 mg Capsule,Extended Release 24hr 0.4 mg PO HS Discontinued aspirin [Adult Low Dose Aspirin] 81 mg Tablet,Delayed Release (Dr/Ec) 81 mg PO DAILY Ambulatory Orders / Order Sets / DME: Adjustable Commode 3-in-1 (1 each) (Routine) Location: Determined by Patient Ordered By: Arnav Garcia Walker With Front Wheels (1 each) (Routine) Location: Determined by Patient Ordered By: Arnav Garcia Referrals: Terell Avendano MD [Physician] - See Instructions (F/U in the office as previously scheduled with Dr. Avendano and/or JORDAN Forrester) Primary Care Chen Schwab [Primary Care Provider] - See Instructions - Discharge Instructions Patient Printed Instructions: Constipation (DC), How to Choose and Use a Walker (GEN), Precautions after Total Joint Replacement Surgery (DC), Fall Prevention (DC), KRISTIAN Hose (DC), Total Hip Replacement (DC) Additional Instructions: Follow up with Dr. Avendano at the [place] office. Call if you are unable to keep your appointment for 07/06/2018 1:05 PM at [phone]. It has been a pleasure taking care of you. Thank you for choosing [facility].
== END 2018-06-22 14:21 | disposition home health service (06) ==
LOC: HSDI 06:51 → N06 14:31
PROVIDERS: ADMIT Orthopaedic Surgery; ATTEND Orthopaedic Surgery